=== PATIENT | female | born 1955 | race Caucasian/White ===

== ENCOUNTER 2024-12-07 15:27 | Outpatient (CLI) | payer BC, MEDICARE, SELFPAY ==
[2024-12-07 16:36] LABS: Basophils Percent Auto 0.4 % (0.2-1.2); Eosinophils Absolute Auto 0.2 K/mm3 (0-0.3); Eosinophils Percent Auto 2.4 % (0-4.4); Hematocrit 37.8 % (37.0-47.0); Hemoglobin 12.6 g/dL (12.0-15.0); Immature Granulocyte Absolute 0.04 K/mm3 (0.00-0.031); Immature Granulocyte Percent A 0.5 % (0-0.5); Lymphocytes Absolute Auto 1.47 K/mm3 (0.9-3.2); Lymphocytes Percent Auto 17.6 % (18.3-44.2); Mean Corpuscular HGB Conc 33.3 g/dl (32-36); Mean Corpuscular Hemoglobin 29.2 pg (26-34); Mean Corpuscular Volume 87.7 fl (80-100); Mean Platelet Volume 10.4 fl (7.4-10.4); Monocytes Absolute Auto 0.8 K/mm3 (0.1-0.6); Monocytes Percent Auto 9.4 % (2.6-8.5); Neutrophils Absolute Auto 5.8 K/mm3 (1.3-6.7); Neutrophils Percent Auto 69.7 % (45.5-73.1); Platelet Count Result 261 k/mm3 (150-375); Red Blood Count 4.31 M/mm3 (4.2-5.4); Red Cell Distribution Width 14.2 % (11.5-14.5); White Blood Count 8.4 K/mm3 (4.5-10.0)
--- OUTSIDE RECORDS SUMMARY | 2024-12-07 16:46 | XMS_ITS | Clinical Summary ---
Author Organization [facility] [place] [address] Care Team Providers Care Aerial Photogrammetrist Name Role Phone Mark Goel MD Primary Care Provider [phone] Chaparro Reed MD Unavailable [phone] Allergies Active Allergy Reactions Criticality Noted Date Comments Celecoxib Chest tightness Medium 10/29/2022 Medications multivitamin capsule Take 1 capsule by mouth daily Active acetaminophen (TYLENOL) 500 mg tablet Take 500 mg by mouth every 6 (six) hours as needed for pain Active omeprazole (PriLOSEC) 20 mg capsule Take 1 capsule (20 mg total) by mouth 2 (two) times a day before breakfast and dinner 60 capsule 1 2 Active atorvastatin (LIPITOR) 10 mg tablet Take 1 tablet (10 mg total) by mouth daily 4 Active methotrexate 2.5 mg tabletIndicatio ns:autoimmune disease Take 5 tablets (12.5 mg total) by mouth once a week 60 tablet 1 4 Active folic acid (FOLVITE) 1 mg tablet Take 1 tablet (1 mg total) by mouth daily 90 tablet 1 4 Active Active Problems Problem Noted Date Diagnosed Date Screening for colon cancer 08/05/2021 Assessment & Plan (08/05/2021 4:24 PM FORMING DEPARTMENT SUPERVISOR): - will discuss at next visit Gastroesophageal reflux disease 08/03/2021 Overview (08/03/2021): Added automatically from request for surgery [id number] Assessment & Plan (08/05/2021 4:23 PM FORMING DEPARTMENT SUPERVISOR): - discussed with Ms. Yang, as her symptoms are under reasonable control, we will continue pepcid at 10 mg BID, can go up to 20 mg po bid - discussed screening for Winkler's esophagus, given long standing GERD, risks of EGD were discussed with her, and she understands JAMARCUS positive 06/01/2021 Chronic rhinitis 01/30/2021 Vasculitis 01/30/2021 Status post gastrointestinal surgery 03/18/2019 History of open heart surgery 06/01/2015 Osteoporosis 10/26/2013 Overview (12/16/2019): Calcium 1200 mg, -D 2000 IU daily. Ergo monthly. HX: teriparatide 2 years DC 06/2017. HX: T11 fracture. Zoledronic acid ordered at last appointment. 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 08/05/2021 Diverticulitis 06/01/2015 08/05/2021 Surgical History Surgery Date Site/Laterality Comments HI LIG/TRNSXJ FLP TUBE ABDL/VAG APPR UNI/BI Tubal Ligation - (Added by TW Conv) HI TOTAL ABDOMINAL HYSTERECT W/WO RMVL TUBE OVARY Hysterectomy - (Added by TW Conv) TOTAL ABDOMINAL HYSTERECTOMY Total Abdominal Hysterectomy With Removal Of Both Ovaries - (Added by TW Conv) HI LAMNOTMY INCL W/DCMPRSN NRV ROOT 1 INTRSPC CERVC Hemilaminectomy With Disc Removal One Cervical Interspace - 2 disks removed (Added by TW Conv) HI THORACOPLASTY SCHEDE TYPE/EXTRAPLEURAL Thoracoplasty - left (Added by TW Conv) HI APPENDECTOMY Appendectomy - (Added by TW Conv) HYSTERECTOMY 09/01/2004 - 2005 BOWEL RESECTION 09/01/2014 - 2015 h/o diverticulitis GALLBLADDER SURGERY CARDIAC ELECTROPHYSIOLOGY MAPPING AND ABLATION 09/01/2011 - 2012 COLON SURGERY 02/17/2019 Exploratory laparotomy with lysis of adhesions. Left colectomy with redo colo anal anastomosis. Rigid proctoscopy. SINUS SURGERY Medical History Medical History Date Comments H/O: hysterectomy 2004 Hypertension Diverticulitis Bronchitis History of bronc hitis - (Added by TW Conv) GERD (gastroesophageal reflux disease) History of esophageal reflux - (Added by TW Conv) Hiatal hernia History of hiata l hernia - (Added by TW Conv) PONV (postoperative nausea and vomiting) Spontaneous pneumothorax A-fib (HCC) with cardiac abl ation Family History Medical History Relation Name Comments Colon polyps Father Broken bones Mother Colon polyps Mother Cancer Sister 1 Vesa Broken bones Sister 2 Iris Anesthesia problems Neg Hx Relation Name Status Comments Father Mother Sister 1 Vesa Alive Sister 2 Iris Alive Social History Tobacco Use Types Packs/Day Years Used Date Smoking Tobacco: Former Cigarettes Q uit: 2013 Smokeless Tobacco: Never Tobacco Cessation:Counseling Given: Not Answered Alcohol Use Standard Drinks/Week Comments Not Currently 0 (1 standard drink = 0.6 oz pur e alcohol) 1-2 AUDIT-C Answer Date Recorded Q1: How often do you have a drink containing alcohol? Never 03/25/2022 Q2: How many drinks containi ng alcohol do you have on a typical day when you are drinking? Patient does not drink Q3: How often do you have si x or more drinks on one occasion? 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 on file Not on file N ot on file Obstetrics History Para Term AB IAB SAB Ectopic Multiple Livin g Live Births 2 2 Date Outcome GA Total Labor Labor/2nd/3rd Weight Sex Type Anes PTL Carline A1 A5 Name Clin Para Para Last Filed Vital Signs Vital Sign Reading Time Taken Comments Blood Pressure 154/79 12/17/2023 9:43 AM CDT Pulse 89 12/17/2023 9:43 AM CDT Temperature 36.6 C (97.8 F) 12/17/2023 9:43 AM CDT Respiratory Rate 18 03/25/2022 9:25 AM CDT Oxygen Saturation 98% 12/17/2023 9:43 AM CDT Inhaled Oxygen Concentration - - Weight 74.8 kg (165 lb) 12/17/2023 9:43 AM CDT Height 167.6 cm (5' 6 ) 12/17/2023 9:43 AM CDT Body Mass Index 26.63 12/17/2023 9:43 AM CDT Plan of Treatment Health Maintenance Due Date Last Done Comments Breast Cancer Screening-Mammogram 1955 Depression Screening 1955 Hepatitis C Screening 1955 DTaP/Tdap/Td Vaccine (1 - Tdap) 1965 Hepatitis B Screening 1972 Pneumococcal vaccine 65+ (1 of 2 - PCV) 1973 Zoster Vaccine (1 of 2) 1973 Well Visit 65+ 2019 Fall Risk Assessment 03/25/2023 03/25/2022 Osteoporosis Screening-Bone Density Scan 07/11/2023 07/11/2021, 02/29/2020, 12/07/2018, Additional history exists Covid-19 Vaccine (2023-2 5 season) 2024 06/20/2021, 11/19/2020, 10/29/2020 Influenza Vaccine (#1) 2024 , 06/30/2020, 07/28/2019, Additional history exists Colon Cancer Screening-Colonoscopy 03/25/2032 03/25/2022, 05/12/2015 Colon Cancer Screening-CT Colonography Discontinued 03/25/2022, 05/12/2015 Colon Cancer Screening-DNA Stool Discontinued 03/25/20, 05/12/2015 Colon Cancer Screening-FIT Discontinued 03/25/2022, Colon Cancer Screening-Sigmoidoscopy Discontinued 03/25/2022, 05/12/2015 Medical Devices Implanted Type Area Security Sales Consultant Device Identifier Shelf Expiration Date Model / Serial / Lot Meagan Ortega/C R [id number] Bard [id number] Monofilament Soft Lightweight Low Profile Square - [id number] Implanted:Qty: 1 on 02/17/2019 by Charity Henry MD at [facility] Mesh Abdomen [employer]/C R [place] [id number] 09/28/2023 [id number] / / [id number] Procedures Procedure Name Priority Date/Time Associated Diagnosis Comments COLONOSCOPY 03/25/2022 8:25 AM CDT DEXA AXIAL SKELETON BONE DENSITY 1 OR MORE SITES Schedule Routine, Read Routine (OP Routine) 07/11/2021 1:23 PM FORMING DEPARTMENT SUPERVISOR Age-related osteoporosis without current pathological fracture Difficulty swallowing pills from Last 3 Months or Most Recently Relevant to Health Maintenance Results * COLONOSCOPY (03/25/2022 8:25 AM CDT) Anatomical Region Laterality Modality Other Narrative Procedure Note Fiona Sharpe MD - 03/25/2022 8:25 AM CDT [facility] Patient Name: Renetta Yang Procedure Date: 03/25/2022 8:25 AM Date of : 1955 Admit Type: Outpatient Age: 66 Gender: Female Attending MD: Fiona Sharpe M.D. Room: [facility] 3 Note Status: Finalized Procedure: Colonoscopy Indications: Screening for colorectal malignant neoplasm Referring MD: Fiona Sharpe M.D. Providers: Fiona Sharpe M.D., Holli Marshall M.D. Medicines: Monitored Anesthesia Care Complications: No immediate complications. Estimated Blood Loss: Estimated blood loss was minimal. Procedure: Pre-Anesthesia Assessment: - Prior to the procedure, a History and Physicalwas performed, and patient medications, allergies and sensitivities were reviewed. The patient'stolerance of previous anesthesia was reviewed. - Immediately prior to administration ofmedications, the patient was re-assessed for adequacy to receive sedatives. - The risks and benefits of the procedure and the sedation options and risks were discussed with the patient. All questions were answered and informed consent was obtained. The benefits, risks and alternatives of theprocedure and sedation were discussed and informed consentwas obtained. All questions were answered. Please referto the signed informed consent document in the medical record. The scope was passed under direct vision.The [id number] endoscope was introduced through the anus and advanced to the terminal ileum. The colonoscopy was performed without difficulty. The patient tolerated the procedure well. The qualityof the bowel preparation was evaluated using the BBPS ([place] Bowel Preparation Scale) with scores of:Right Colon = 2 (minor amount of residual staining, small fragments of stool and/or opaque liquid, but mucosa seen well), Transverse Colon = 3 (entire mucosaseen well with no residual staining, small fragments of stool or opaque liquid) and Left Colon = 3 (entire mucosa seen well with no residual staining, small fragments of stool or opaque liquid). The totalBBPS score equals 8. The quality of the bowelpreparation was good. The bowel preparation used was GoLYTELYvia split dose instruction. The quality of the bowel preparation was good. Findings: Hemorrhoids were found on perianal exam. The terminal ileum appeared normal. A 4 mm polyp was found in the ascending colon. The polyp was sessile. The polyp was removed with a cold snare. Resection and retrieval were complete. A single small-mouthed diverticulum was found in the right colon. Two sessile polyps were found in the recto-sigmoid colon, likely hyperplastic based on appearance. The polyps were 2 to 3 mm in size. These polyps were removed with a cold biopsy forceps. Resection and retrieval were complete. There was evidence of a prior end-to-side colo-colonic anastomosis in the recto-sigmoid colon. This was patent and was characterized by healthy appearing mucosa. The anastomosis was traversed. Internal hemorrhoids were found during retroflexion. Normal mucosa was found in the entire colon. Biopsies were taken witha cold forceps for histology from the left and right colon. Impression: - Hemorrhoids found on perianal exam. - The examined portion of the ileum was normal. - One 4 mm polyp in the ascending colon, removedwith a cold snare. Resected and retrieved. - Mild diverticulosis in the right colon. - Two 2 to 3 mm polyps at the recto-sigmoid colon, removed with a cold biopsy forceps. Resected and retrieved. - Patent end-to-side colo-colonic anastomosis, characterized by healthy appearing mucosa. - Internal hemorrhoids. - Normal mucosa in the entire examined colon.Biopsied. Recommendation: - Discharge patient to home (ambulatory). - Await pathology results. - Repeat colonoscopy in 7 years for surveillancebased on pathology results. - Return to my office as previously scheduled. Electronically signed by Fiona Sharpe MD Fiona Sharpe M.D. 03/25/2022 9:10:17 AM . Number of Addenda: 0 Note Initiated On: 03/25/2022 8:25 AM Recognized by the [place] [employer] for promoting quality in endoscopy us Fiona Sahrpe MD ENDOSCOPY PROCEDURES Final Res ult * Dexa Axial Skeleton Bone Density 1 or 2 Site (07/11/2021 1:23 PM FORMING DEPARTMENT SUPERVISOR) Anatomical Region Laterality Modality Body N/A Radiographic Brittney ging Narrative 07/11/2021 2:32 PM FORMING DEPARTMENT SUPERVISOR Patient Name: Renetta Yang Date of : 1955 Date of scan: 07/11/2021 Bone mineral density was performed on a [employer] Discovery Densitometer. Based on machine cross-calibration and precision studies the least significant changes of this densitometer is 0.024 g/cm2 at the spine, 0.020 g/cm2 at the total proximal femur, and 0.014g/cm2 at the forearm. HISTORY: This is a 65 y.o. postmenopausal female with a history of osteoporosis, rheumatoid arthritis and vitamin D deficiency. She reports that she quit smoking about 8 years ago. She has never used smokeless tobacco. She is currently on treatment with vitamin D; and was previously treated with teriparatide (Forteo), glucocorticoids and hormone replacement therapy. She has a current complaint of arm pain, back pain, neck pain and leg pain. INDICATIONS: Menopause status, vitamin D deficiency and history of osteoporosis. FINDINGS: BONE MINERAL DENSITY OF THE LUMBAR SPINE Bone Mineral Density (BMD) of the lumbar spine was measured from L1-L4 and the average density was calculated to be 0.938 gm/cm2. This corresponds to a T-score (standard deviations from the mean of young adults) of -1.0. When compared to the previous study of 02/29/2020 there has been no significant changes in bone density. BONE MINERAL DENSITY OF THE PROXIMAL FEMUR Bone Mineral Density (BMD) of the left hip total was found to be 0.971 gm/cm2. This corresponds to a T-score standard deviations from the mean of young adults of 0.2. Femoral neck is 0.737 gm/cm2 with a T-score (standard deviations from the mean of young adults) of -1.0. When compared to the previous study of 02/29/2020 there has been no significant changes in bone density. SUMMARY: Bone mineral density is near the young adult normal mean with no increased risk for fracture. There has been no significant changes in bone density since previous measurement. ADDITIONAL COMMENTS: Postmenopausal Women and Men Over 50: Diagnostic criteria: Osteoporosis: BMD at or below -2.5 T-score; Osteopenia (low bone mass): BMD between -1.0 and -2.5 T-score. If the patient has a history of a fragility fracture, a fracture that occurred with trauma equivalent to a fall from a standing position or less, then the diagnosis is osteoporosis regardless of bone density. The history and data sections of the bone mineral density scan were prepared by Teodora Hoerner, RT who is accredited by the International Society of Clinical Densitometry. The overall patient assessment and scan interpretation were performed by Michelle Cummings M.D. who is certified by the International Society of Clinical Densitometry. [id number] us Michelle Cummings MD IMG DXA PROCEDURES Final Re sult from Last 3 Months or Most Recently Relevant to Health Maintenance Insurance MEDICARE Into [facility] MEDICARE ADVANTAGE [facility] MEDICARE Address: [address] [address] [place] [address] BLUE ACCESS [facility] MEDICARE MEDICARE [facility] Address: [address] [place] [address] MEDICARE BLUE ACCESS CHOICE [place] Advance Directives For more information, please contact: [phone] * Full Code (Latest Code Status on File) Date Activated Date Inactivated Comments 08/13/2021 12:34 PM 08/13/2021 5:48 PM * Full Code Date Activated Date Inactivated Comments 02/17/2019 5:30 PM 02/21/2019 5:22 PM Care Teams Aerial Photogrammetrist Relationship Specialty Start Date End Date Mark Goel MD PCP - General Internal Medicine 12/07/18 Chaparro Reed MD Referring Physician Gastroenterology 12/31/18
--- OUTSIDE RECORDS SUMMARY | 2024-12-07 16:46 | XMS_ITS | Encounter Summary ---
Author Organization [facility] Address [address] [place] [address] Phone Care Team Providers Care Linen Room Custodian Name Role Phone Mark Goel MD Primary Care Provider [phone] Chaparro Reed MD Unavailable [phone] Encounter Details Date Type Department Care Team (Late st Contact Info) Description 05/17/2021 Orders Only [facility] Scanning, Provider Social History Tobacco Use Types Packs/Day Years Used Date Smoking Tobacco: Former Cigarettes Q uit: 2013 Smokeless Tobacco: Never Alcohol Use Standard Drinks/Week Comments Not Currently 0 (1 standard drink = 0.6 oz pur e alcohol) 1-2 Comments No Sex and Gender Information Value Date Recorded Sex Assigned at Not on file Legal Sex Female 3:17 AM DEPOT AGENT Gender Identity Female 04/16/2021 9:34 PM CDT Sexual Orientation Straight 04/16/2021 9: 34 PM CDT 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 Not on file N ot on file documented as of this encounter Plan of Treatment Not on file documented as of this encounter Procedures Procedure Name Priority Date/Time Associated Diagnosis Comments SCAN - RADIOLOGY/IMAGING 05/17/2021 documented in this encounter Results * SCAN - RADIOLOGY/IMAGING (05/17/2021) Anatomical Region Laterality Modality Other us Provider Scanning Edited Result - Final documented in this encounter Visit Diagnoses Not on filedocumented in this encounter Care Teams Linen Room Custodian Relationship Specialty Start Date End Date Mark Goel MD PCP - General Internal Medicine 12/07/18 Chaparro Reed MD Referring Physician Gastroenterology 12/31/18 documented as of this encounter
--- OUTSIDE RECORDS SUMMARY | 2024-12-07 16:46 | XMS_ITS | Data Portability ---
[facility] Organization [facility] Address [address] [place] [address] Care Team Providers Care It Account Manager Name Role Phone JULIETA GOEL Primary Care Provider Assessment Encounter Date Assessment Date Assessment LastModified by Organization Details LastModified Time 11/20/2023 11/20/2023 Blood pressure 142/88 we will continue conservative measures low-fat diet stressed [id number] omeprazole mammogram C-scope recommended recommend to stay up-to-date on immunizations but she says he is not going to get any in the next months. Follow-up with me in 6 [email or web address] Not available 11/20/2023 21:07:51 04/08/2024 04/08/2024 soft diet CBC CMP lipase Zofran Flagyl call in 3 days with update obtain ER records Not available 04/17/2024 15:33:25 05/18/2024 05/18/2024 we will continue current therapies and healthy lifestyle care instructions discussed follow up with me in 4 months. [email or web address] Not available 05/18/2024 23:06:36 09/21/2024 09/21/2024 hypertension uncontrolled add amlodipine 5 mg daily GERD conservative measures and omeprazole. Cellulitis toe doxycycline. Flu shot. Healthy lifestyle care instructions. Continue current therapy. Four month follow up. But she will come get a blood pressure checked in a week or 2 [email or web address] Not available 09/26/2024 19:51:29 Plan of Treatment Reminders Order Date Submit Date Provider Last Modified By Organization Details Last Modified Time Details Appointments ANY 15 2024 01:15P Sary Goel MD Not available Not available Not available Lab CMP, serum or plasma 2024 025 [facility], [address], [place], [address], 09/22/2024 08:24:24 CBC w/ auto diff 2024 025 [facility], [address], [place], [address], 09/22/2024 08:24:26 lipid panel, serum 2024 025 [facility], [address], [place], [address], 09/22/2024 08:24:23 CBC w/ auto diff 2023 024 [facility], [address], [place], [address], 04/09/2024 08:26:22 CMP, serum or plasma 2023 024 [facility], [address], [place], [address], 04/09/2024 08:26:21 lipase, serum or plasma [facility]23 [facility]24 [facility] [address], [place], [address], 04/09/2024 08:26:22 CMP, serum or plasma 2023 024 [facility], [address], [place], [address], 11/21/2023 07:15:54 CBC w/ auto diff 2023 024 [facility], [address], [place], [address], 11/21/2023 07:15:54 lipid panel, serum 2023 024 [facility], [address], [place], [address], 11/21/2023 07:15:53 Referral None recorded. Procedures None recorded. Surgeries None recorded. Imaging None recorded. Medication Orders doxycycli ne hyclate 100 mg capsule [address] [id number], [address], [place], [place], [id number], 09/21/2024 15:27:02 amlodipin e 5 mg tablet [address] [facility][id number], [address], [place], [place], [id number], 09/21/2024 15:27:02 atorvasta tin 10 mg tablet [address] [id number], [address], [place], [place], [id number], 09/21/2024 21:15:03 Zofran 4 mg tablet 2023 024 [id number], [address], [place], [place], [id number], 05/18/2024 15:09:44 Flagyl 500 mg tablet 2023 024 [id number], [address], [place], [place], [id number], 05/18/2024 15:10:41 Patient TargetsNo targets recorded. Patient Instructions Encounter Date Encounter Id Patient Instructions Last Modified By Organization Details Last Modified Time 05/18/2024 [id number] A healthy lifestyle: care instructions [place] [id number] Not available 05/18/2024 23:06:57 09/21/2024 [id number] A healthy lifestyle: care instructions [email or web address] Not available 09/21/2024 15:27:02 Reason for Referral None Reported. Results Created Date Observation Date Name Description Value Unit Range Abnormal Flag Note LastModifiedBy Organization Detail LastModifiedTime 11/20/19 24 11/21/2023 LIPID PANEL cholesterol, total 227 mg/dL 100-19 9 above high normal Not Available [facility] ([facility]) [address] [place], [address], 11/21/2023 07:15:53 11/20/19 24 11/21/2023 LIPID PANEL triglyceride s 314 mg/dL 0-149 above high normal Not Available [facility] ([facility]) [address] [place], [address], 11/21/2023 07:15:53 11/20/19 24 11/21/2023 LIPID PANEL HDL cholesterol 44 mg/dL >39 Not Available [facility] ([facility]) [address] [place], [address], 11/21/2023 07:15:53 11/20/19 24 11/21/2023 LIPID PANEL VLDL cholesterol chetan 56 mg/dL 5-40 above high normal Not Available [facility] ([facility]) [address] [place], [address], 11/21/2023 07:15:53 11/20/19 24 11/21/2023 LIPID PANEL LDL chol calc ([facility]) 127 mg/dL 0-99 above high normal Not Available [facility] ([facility]) [address] [place], [address], 11/21/2023 07:15:53 11/20/19 24 11/21/2023 CMP14 glucose 131 mg/dL 70-99 above high normal Not Available [facility] ([facility]) [address] [place], [address], 11/21/2023 07:15:54 11/20/19 24 11/21/2023 CMP14 BUN 11 mg/dL 8-27 Not Available [facility] ([facility]) [address] [facility], [place], [address], 11/21/2023 07:15:54 11/20/19 24 11/21/2023 CMP14 creatinine 0.81 mg/dL 0.57-1 .00 Not Available [facility] ([facility]) [address] [facility], [place], [address], 11/21/2023 07:15:54 11/20/19 24 11/21/2023 CMP14 eGFR 79 mL/mi n/1.7 3 >59 Not Available [facility] ([facility]) [address] [facility], [place], [address], 11/21/2023 07:15:54 11/20/19 24 11/21/2023 CMP14 sodium 141 mmol/ L 134-14 4 Not Available [facility] ([facility]) [address] [facility], [place], [address], 11/21/2023 07:15:54 11/20/19 24 11/21/2023 CMP14 potassium 3.7 mmol/ L 3.5-5. 2 Not Available [facility] ([facility]) [address] [facility], [place], [address], 11/21/2023 07:15:54 11/20/19 24 11/21/2023 CMP14 chloride 99 mmol/ L 96-106 Not Available [facility] ([facility]) [address] [facility], [place], [address], 11/21/2023 07:15:54 11/20/19 24 11/21/2023 CMP14 carbon dioxide, total 26 mmol/ L 20-29 Not Available [facility] ([facility]) [address] [facility], [place], [address], 11/21/2023 07:15:54 11/20/19 24 11/21/2023 CMP14 calcium 9.0 mg/dL 8.7-10 .3 Not Available [facility] ([facility]) [address] [facility], [place], [address], 11/21/2023 07:15:54 11/20/19 24 11/21/2023 CMP14 protein, total 6.6 g/dL 6.0-8. 5 Not Available [facility] ([facility]) [address] [facility], [place], [address], 11/21/2023 07:15:54 11/20/19 24 11/21/2023 CMP14 albumin 4.0 g/dL 3.9-4. 9 Not Available [facility] ([facility]) [address] [facility], [place], [address], 11/21/2023 07:15:54 11/20/19 24 11/21/2023 CMP14 globulin, total 2.6 g/dL 1.5-4. 5 Not Available [facility] ([facility]) [address] [facility], [place], [address], 11/21/2023 07:15:54 11/20/19 24 11/21/2023 CMP14 A/G ratio 1.5 1.2-2. 2 Not Available [facility] ([facility]) [address] [facility], [place], [address], 11/21/2023 07:15:54 11/20/19 24 11/21/2023 CMP14 bilirubin, total 0.3 mg/dL 0.0-1. 2 Not Available [facility] ([facility]) [address] [facility] [place], [address], 11/21/2023 07:15:54 11/20/19 24 11/21/2023 CMP14 alkaline phosphatase 114 IU/L 44-121 Not Available [facility] ([facility]) [address] [facility], [place], [address], 11/21/2023 07:15:54 11/20/19 24 11/21/2023 CMP14 AST (SGOT) 32 IU/L 0-40 Not Avail able [facility] ([facility]) [address] [place], [address], 11/21/2023 07:15:54 11/20/19 24 11/21/2023 CMP14 ALT (SGPT) 33 IU/L 0-32 above high normal Not Available [facility] ([facility]) [address] [facility], [place], [address], 11/21/2023 07:15:54 11/20/19 24 11/21/2023 CBC WITH DIFFE RENTI AL/PL ATELE T WBC 8.7 x10e3 /uL 3.4-10 .8 Not Available [facility] ([facility]) [address] [facility], [place], [address], 11/21/2023 07:15:54 11/20/19 24 11/21/2023 CBC WITH DIFFE RENTI AL/PL ATELE T RBC 4.29 x10e6 /uL 3.77-5 .28 Not Available [facility] ([facility]) [address] [place], [address], 11/21/2023 07:15:54 11/20/19 24 11/21/2023 CBC WITH DIFFE RENTI AL/PL ATELE T hemoglobin 12.5 g/dL 11.1-1 5.9 Not Available [facility] ([facility]) [address] [place], [address], 11/21/2023 07:15:54 11/20/19 24 11/21/2023 CBC WITH DIFFE RENTI AL/PL ATELE T hematocrit 37.7 % 34.0-4 6.6 Not Available [facility] ([facility]) [address] [place], [address], 11/21/2023 07:15:54 11/20/19 24 11/21/2023 CBC WITH DIFFE RENTI AL/PL ATELE T MCV 88 fL 79-97 Not Available [facility] ([facility]) [address] [place], [address], 11/21/2023 07:15:54 11/20/19 24 11/21/2023 CBC WITH DIFFE RENTI AL/PL ATELE T MCH 29.1 pg 26.6-3 3.0 Not Available [facility] ([facility]) [address] [facility], [place], [address], 11/21/2023 07:15:54 11/20/19 24 11/21/2023 CBC WITH DIFFE RENTI AL/PL ATELE T MCHC 33.2 g/dL 31.5-3 5.7 Not Available [facility] ([facility]) [address] [place], [address], 11/21/2023 07:15:54 11/20/19 24 11/21/2023 CBC WITH DIFFE RENTI AL/PL ATELE T RDW 14.6 % 11.7-1 5.4 Not Available [facility] ([facility]) [address] [place], [address], 11/21/2023 07:15:54 11/20/19 24 11/21/2023 CBC WITH DIFFE RENTI AL/PL ATELE T platelets 274 x10e3 /uL 150-45 0 Not Available [facility] ([facility]) [address] [place], [address], 11/21/2023 07:15:54 11/20/19 24 11/21/2023 CBC WITH DIFFE RENTI AL/PL ATELE T neutrophils 71 % notest ab. Not Available [facility] ([facility]) [address] [place], [address], 11/21/2023 07:15:54 11/20/19 24 11/21/2023 CBC WITH DIFFE RENTI AL/PL ATELE T lymphs 17 % notest ab. Not Available [facility] ([facility]) [address] [facility], [place], [address], 11/21/2023 07:15:54 11/20/19 24 11/21/2023 CBC WITH DIFFE RENTI AL/PL ATELE T monocytes 9 % notest ab. Not Available [facility] ([facility]) [address] [facility], [place], [address], 11/21/2023 07:15:54 11/20/19 24 11/21/2023 CBC WITH DIFFE RENTI AL/PL ATELE T eos 2 % notest ab. Not Available [facility] ([facility]) [address] [facility], [place], [address], 11/21/2023 07:15:54 11/20/19 24 11/21/2023 CBC WITH DIFFE RENTI AL/PL ATELE T basos 0 % notest ab. Not Available [facility] ([facility]) [address] [place], [address], 11/21/2023 07:15:54 11/20/19 24 11/21/2023 CBC WITH DIFFE RENTI AL/PL ATELE T neutrophils (absolute) 6.1 x10e3 /uL 1.4-7. 0 Not Available [facility] ([facility]) [address] [place], [address], 11/21/2023 07:15:54 11/20/19 24 11/21/2023 CBC WITH DIFFE RENTI AL/PL ATELE T lymphs (absolute) 1.5 x10e3 /uL 0.7-3. 1 Not Available [facility] ([facility]) [address] [place], [address], 11/21/2023 07:15:54 11/20/19 24 11/21/2023 CBC WITH DIFFE RENTI AL/PL ATELE T monocytes(ab solute) 0.8 x10e3 /uL 0.1-0. 9 Not Available [facility] ([facility]) [address] [place], [address], 11/21/2023 07:15:54 11/20/19 24 11/21/2023 CBC WITH DIFFE RENTI AL/PL ATELE T eos (absolute) 0.2 x10e3 /uL 0.0-0. 4 Not Available [facility] ([facility]) [address] [place], [address], 11/21/2023 07:15:54 11/20/19 24 11/21/2023 CBC WITH DIFFE RENTI AL/PL ATELE T baso (absolute) 0.0 x10e3 /uL 0.0-0. 2 Not Available [facility] ([facility]) [address] [facility], [place], [address], 11/21/2023 07:15:54 11/20/19 24 11/21/2023 CBC WITH DIFFE RENTI AL/PL ATELE T immature granulocytes 1 % notest ab. Not Available [facility] ([facility]) [address] [facility], [place], [address], 11/21/2023 07:15:54 11/20/19 24 11/21/2023 CBC WITH DIFFE RENTI AL/PL ATELE T immature grans (abs) 0.1 x10e3 /uL 0.0-0. 1 Not Available [facility] ([facility]) [address] [place], [address], 11/21/2023 07:15:54 12/11/19 24 12/12/2023 HEMOG LOBIN A1C hemoglobin A1C 7.2 % 4.8-5. 6 above high normal Predi abete s: 5.7 - 6.4 Diabe joana: >6.4 Glyce golden contr ol for adult s with diabe joana: <7.0 Not Available [facility] ([facility]) [address] [place], [address], 12/12/2023 03:37:09 04/08/20 24 04/09/2024 COMP. METAB OLIC PANEL (14) glucose 173 mg/dL 70-99 above high normal Not Available [facility] ([facility]) [address] [place], [address], 04/09/2024 08:26:21 04/08/20 24 04/09/2024 COMP. METAB OLIC PANEL (14) BUN 21 mg/dL 8-27 Not Available [facility] ([facility]) [address] [place], [address], 04/09/2024 08:26:21 04/08/20 24 04/09/2024 COMP. METAB OLIC PANEL (14) creatinine 0.86 mg/dL 0.57-1 .00 Not Available [facility] ([facility]) [address] [place], [address], 04/09/2024 08:26:21 04/08/20 24 04/09/2024 COMP. METAB OLIC PANEL (14) eGFR 73 mL/mi n/1.7 3 >59 Not Available [facility] ([facility]) [address] [place], [address], 04/09/2024 08:26:21 04/08/20 24 04/09/2024 COMP. METAB OLIC PANEL (14) BUN/creatini ne ratio 24 12-28 Not Available [facility] ([facility]) [address] [place], [address], 04/09/2024 08:26:21 04/08/20 24 04/09/2024 COMP. METAB OLIC PANEL (14) sodium 136 mmol/ L 134-14 4 Not Available [facility] ([facility]) [address] [place], [address], 04/09/2024 08:26:21 04/08/20 24 04/09/2024 COMP. METAB OLIC PANEL (14) potassium 3.9 mmol/ L 3.5-5. 2 Not Available [facility] ([facility]) [address] [facility] [place], [address], 04/09/2024 08:26:21 04/08/20 24 04/09/2024 COMP. METAB OLIC PANEL (14) chloride 97 mmol/ L 96-106 Not Available [facility] ([facility]) [address] [facility] [place], [address], 04/09/2024 08:26:21 04/08/20 24 04/09/2024 COMP. METAB OLIC PANEL (14) carbon dioxide, total 22 mmol/ L 20-29 Not Available [facility] ([facility]) [address] [facility] [place], [address], 04/09/2024 08:26:21 04/08/20 24 04/09/2024 COMP. METAB OLIC PANEL (14) calcium 10.2 mg/dL 8.7-10 .3 Not Available [facility] ([facility]) [address] [facility] [place], [address], 04/09/2024 08:26:21 04/08/20 24 04/09/2024 COMP. METAB OLIC PANEL (14) protein, total 6.7 g/dL 6.0-8. 5 Not Available [facility] ([facility]) [address] [facility] [place], [address], 04/09/2024 08:26:21 04/08/20 24 04/09/2024 COMP. METAB OLIC PANEL (14) albumin 4.2 g/dL 3.9-4. 9 Not Available [facility] ([facility]) [address] [facility] [place], [address], 04/09/2024 08:26:21 04/08/20 24 04/09/2024 COMP. METAB OLIC PANEL (14) globulin, total 2.5 g/dL 1.5-4. 5 Not Available [facility] ([facility]) [address] [place], [address], 04/09/2024 08:26:21 04/08/20 24 04/09/2024 COMP. METAB OLIC PANEL (14) bilirubin, total 0.4 mg/dL 0.0-1. 2 Not Available [facility] ([facility]) [address] [place], [address], 04/09/2024 08:26:21 04/08/20 24 04/09/2024 COMP. METAB OLIC PANEL (14) alkaline phosphatase 122 IU/L 44-121 above high normal Not Available [facility] ([facility]) [address] [place], [address], 04/09/2024 08:26:21 04/08/20 24 04/09/2024 COMP. METAB OLIC PANEL (14) AST (SGOT) 46 IU/L 0-40 above high normal Not Available [facility] ([facility]) [address] [place], [address], 04/09/2024 08:26:21 04/08/20 24 04/09/2024 COMP. METAB OLIC PANEL (14) ALT (SGPT) 38 IU/L 0-32 above high normal Not Available [facility] ([facility]) [address] [place], [address], 04/09/2024 08:26:21 04/08/20 24 04/09/2024 LIPAS E lipase 38 U/L 14-72 Not Available [facility] ([facility]) [address] [place], [address], 04/09/2024 08:26:22 04/08/20 24 04/09/2024 CBC WITH DIFFE RENTI AL/PL ATELE T WBC 7.4 x10e3 /uL 3.4-10 .8 Not Available [facility] ([facility]) [address] [facility] [place], [address], 04/09/2024 08:26:22 04/08/20 24 04/09/2024 CBC WITH DIFFE RENTI AL/PL ATELE T RBC 4.48 x10e6 /uL 3.77-5 .28 Not Available [facility] ([facility]) [address] [facility], [place], [address], 04/09/2024 08:26:22 04/08/20 24 04/09/2024 CBC WITH DIFFE RENTI AL/PL ATELE T hemoglobin 13.1 g/dL 11.1-1 5.9 Not Available [facility] ([facility]) [address] [place], [address], 04/09/2024 08:26:22 04/08/20 24 04/09/2024 CBC WITH DIFFE RENTI AL/PL ATELE T hematocrit 40.3 % 34.0-4 6.6 Not Available [facility] ([facility]) [address] [place], [address], 04/09/2024 08:26:22 04/08/2004/09/2024 CBC WITH DIFFE RENTI AL/PL ATELE T MCV 90 fL 79-97 Not Available [facility] ([facility]) [address] [place], [address], 04/09/2024 08:26:22 04/08/20 24 04/09/2024 CBC WITH DIFFE RENTI AL/PL ATELE T MCH 29.2 pg 26.6-3 3.0 Not Available [facility] ([facility]) [address] [place], [address], 04/09/2024 08:26:22 04/08/20 24 04/09/2024 CBC WITH DIFFE RENTI AL/PL ATELE T MCHC 32.5 g/dL 31.5-3 5.7 Not Available [facility] ([facility]) [address] [facility] [place], [address], 04/09/2024 08:26:22 04/08/20 24 04/09/2024 CBC WITH DIFFE RENTI AL/PL ATELE T RDW 14.6 % 11.7-1 5.4 Not Available [facility] ([facility]) [address] [facility], [place], [address], 04/09/2024 08:26:22 04/08/20 24 04/09/2024 CBC WITH DIFFE RENTI AL/PL ATELE T platelets 295 x10e3 /uL 150-45 0 Not Available [facility] ([facility]) [address] [facility], [place], [address], 04/09/2024 08:26:22 04/08/20 24 04/09/2024 CBC WITH DIFFE RENTI AL/PL ATELE T neutrophils 66 % notest ab. Not Available [facility] ([facility]) [address] [facility], [place], [address], 04/09/2024 08:26:22 04/08/20 24 04/09/2024 CBC WITH DIFFE RENTI AL/PL ATELE T lymphs 22 % notest ab. Not Available [facility] ([facility]) [address] [facility], [place], [address], 04/09/2024 08:26:22 04/08/20 24 04/09/2024 CBC WITH DIFFE RENTI AL/PL ATELE T monocytes 9 % notest ab. Not Available [facility] ([facility]) [address] [facility], [place], [address], 04/09/2024 08:26:22 04/08/20 24 04/09/2024 CBC WITH DIFFE RENTI AL/PL ATELE T eos 3 % notest ab. Not Available [facility] ([facility]) [address] [facility], [place], [address], 04/09/2024 08:26:22 04/08/20 24 04/09/2024 CBC WITH DIFFE RENTI AL/PL ATELE T basos 0 % notest ab. Not Available [facility] ([facility]) [address] [facility], [place], [address], 04/09/2024 08:26:22 04/08/20 24 04/09/2024 CBC WITH DIFFE RENTI AL/PL ATELE T neutrophils (absolute) 4.9 x10e3 /uL 1.4-7. 0 Not Available [facility] ([facility]) [address] [facility], [place], [address], 04/09/2024 08:26:22 04/08/20 24 04/09/2024 CBC WITH DIFFE RENTI AL/PL ATELE T lymphs (absolute) 1.6 x10e3 /uL 0.7-3. 1 Not Available [facility] ([facility]) [address] [place], [address], 04/09/2024 08:26:22 04/08/20 24 04/09/2024 CBC WITH DIFFE RENTI AL/PL ATELE T monocytes(ab solute) 0.6 x10e3 /uL 0.1-0. 9 Not Available [facility] ([facility]) [address] [place], [address], 04/09/2024 08:26:22 04/08/20 24 04/09/2024 CBC WITH DIFFE RENTI AL/PL ATELE T eos (absolute) 0.2 x10e3 /uL 0.0-0. 4 Not Available [facility] ([facility]) [address] [place], [address], 04/09/2024 08:26:22 04/08/20 24 04/09/2024 CBC WITH DIFFE RENTI AL/PL ATELE T baso (absolute) 0.0 x10e3 /uL 0.0-0. 2 Not Available [facility] ([facility]) [address] [facility] [place], [address], 04/09/2024 08:26:22 04/08/20 24 04/09/2024 CBC WITH DIFFE RENTI AL/PL ATELE T immature granulocytes 0 % notest ab. Not Available [facility] ([facility]) [address] [facility], [place], [address], 04/09/2024 08:26:22 04/08/20 24 04/09/2024 CBC WITH DIFFE RENTI AL/PL ATELE T immature grans (abs) 0.0 x10e3 /uL 0.0-0. 1 Not Available [facility] ([facility]) [address] [place], [address], 04/09/2024 08:26:22 09/21/19 25 09/22/2024 LIPID PANEL cholesterol, total 220 mg/dL 100-19 9 above high normal Not Available [facility] ([facility]) [address] [place], [address], 09/22/2024 08:24:23 09/21/19 25 09/22/2024 LIPID PANEL triglyceride s 288 mg/dL 0-149 above high normal Not Available [facility] ([facility]) [address] [place], [address], 09/22/2024 08:24:23 09/21/19 25 09/22/2024 LIPID PANEL HDL cholesterol 47 mg/dL >39 Not Available [facility] ([facility]) [address] [place], [address], 09/22/2024 08:24:23 09/21/19 25 09/22/2024 LIPID PANEL VLDL cholesterol chetan 51 mg/dL 5-40 above high normal Not Available [facility] ([facility]) [address] [place], [address], 09/22/2024 08:24:23 09/21/19 25 09/22/2024 LIPID PANEL LDL chol calc ([facility]) 122 mg/dL 0-99 above high normal Not Available [facility] ([facility]) [address] [place], [address], 09/22/2024 08:24:23 09/21/19 25 09/22/2024 COMP. METAB OLIC PANEL (14) glucose 166 mg/dL 70-99 above high normal Not Available [facility] ([facility]) [address] [place], [address], 09/22/2024 08:24:24 09/21/19 25 09/22/2024 COMP. METAB OLIC PANEL (14) BUN 12 mg/dL 8-27 Not Available [facility] ([facility]) [address] [place], [address], 09/22/2024 08:24:24 09/21/19 25 09/22/2024 COMP. METAB OLIC PANEL (14) creatinine 0.90 mg/dL 0.57-1 .00 Not Available [facility] ([facility]) [address] [place], [address], 09/22/2024 08:24:24 09/21/19 25 09/22/2024 COMP. METAB OLIC PANEL (14) eGFR 69 mL/mi n/1.7 3 >59 Not Available [facility] ([facility]) [address] [place], [address], 09/22/2024 08:24:24 09/21/19 25 09/22/2024 COMP. METAB OLIC PANEL (14) BUN/creatini ne ratio 13 12-28 Not Available [facility] ([facility]) [address] [place], [address], 09/22/2024 08:24:24 09/21/19 25 09/22/2024 COMP. METAB OLIC PANEL (14) sodium 140 mmol/ L 134-14 4 Not Available [facility] ([facility]) [address] [facility] [place], [address], 09/22/2024 08:24:24 09/21/19 25 09/22/2024 COMP. METAB OLIC PANEL (14) potassium 3.7 mmol/ L 3.5-5. 2 Not Available [facility] ([facility]) [address] [place], [address], 09/22/2024 08:24:24 09/21/19 25 09/22/2024 COMP. METAB OLIC PANEL (14) chloride 98 mmol/ L 96-106 Not Available [facility] ([facility]) [address] [place], [address], 09/22/2024 08:24:24 09/21/19 25 09/22/2024 COMP. METAB OLIC PANEL (14) carbon dioxide, total 28 mmol/ L 20-29 Not Available [facility] ([facility]) [address] [place], [address], 09/22/2024 08:24:24 09/21/19 25 09/22/2024 COMP. METAB OLIC PANEL (14) calcium 9.3 mg/dL 8.7-10 .3 Not Available [facility] ([facility]) [address] [place], [address], 09/22/2024 08:24:24 09/21/19 25 09/22/2024 COMP. METAB OLIC PANEL (14) protein, total 6.4 g/dL 6.0-8. 5 Not Available [facility] ([facility]) [address] [place], [address], 09/22/2024 08:24:24 09/21/19 25 09/22/2024 COMP. METAB OLIC PANEL (14) albumin 4.1 g/dL 3.9-4. 9 Not Available [facility] ([facility]) [address] [place], [address], 09/22/2024 08:24:24 09/21/19 25 09/22/2024 COMP. METAB OLIC PANEL (14) globulin, total 2.3 g/dL 1.5-4. 5 Not Available [facility] ([facility]) [address] [facility], [place], [address], 09/22/2024 08:24:24 09/21/19 25 09/22/2024 COMP. METAB OLIC PANEL (14) bilirubin, total 0.2 mg/dL 0.0-1. 2 Not Available [facility] ([facility]) [address] [facility], [place], [address], 09/22/2024 08:24:24 09/21/19 25 09/22/2024 COMP. METAB OLIC PANEL (14) alkaline phosphatase 104 IU/L 44-121 Not Available [facility] ([facility]) [address] [facility], [place], [address], 09/22/2024 08:24:24 09/21/19 25 09/22/2024 COMP. METAB OLIC PANEL (14) AST (SGOT) 50 IU/L 0-40 above high normal Not Available [facility] ([facility]) [address] [place], [address], 09/22/2024 08:24:24 09/21/19 25 09/22/2024 COMP. METAB OLIC PANEL (14) ALT (SGPT) 57 IU/L 0-32 above high normal Not Available [facility] ([facility]) [address] [place], [address], 09/22/2024 08:24:24 09/21/19 25 09/22/2024 CBC WITH DIFFE RENTI AL/PL ATELE T WBC 6.8 x10e3 /uL 3.4-10 .8 Not Available [facility] ([facility]) [address] [place], [address], 09/22/2024 08:24:26 09/21/19 25 09/22/2024 CBC WITH DIFFE RENTI AL/PL ATELE T RBC 4.20 x10e6 /uL 3.77-5 .28 Not Available [facility] ([facility]) [address] [facility], [place], [address], 09/22/2024 08:24:26 09/21/19 25 09/22/2024 CBC WITH DIFFE RENTI AL/PL ATELE T hemoglobin 12.3 g/dL 11.1-1 5.9 Not Available [facility] ([facility]) [address] [place], [address], 09/22/2024 08:24:26 09/21/19 25 09/22/2024 CBC WITH DIFFE RENTI AL/PL ATELE T hematocrit 38.0 % 34.0-4 6.6 Not Available [facility] ([facility]) [address] [facility], [place], [address], 09/22/2024 08:24:26 09/21/19 25 09/22/2024 CBC WITH DIFFE RENTI AL/PL ATELE T MCV 91 fL 79-97 Not Available [facility] ([facility]) [address] [place], [address], 09/22/2024 08:24:26 09/21/19 25 09/22/2024 CBC WITH DIFFE RENTI AL/PL ATELE T MCH 29.3 pg 26.6-3 3.0 Not Available [facility] ([facility]) [address] [place], [address], 09/22/2024 08:24:26 09/21/19 25 09/22/2024 CBC WITH DIFFE RENTI AL/PL ATELE T MCHC 32.4 g/dL 31.5-3 5.7 Not Available [facility] ([facility]) [address] [place], [address], 09/22/2024 08:24:26 09/21/19 25 09/22/2024 CBC WITH DIFFE RENTI AL/PL ATELE T RDW 13.7 % 11.7-1 5.4 Not Available [facility] ([facility]) [address] [facility], [place], [address], 09/22/2024 08:24:26 09/21/19 25 09/22/2024 CBC WITH DIFFE RENTI AL/PL ATELE T platelets 246 x10e3 /uL 150-45 0 Not Available [facility] ([facility]) [address] [facility], [place], [address], 09/22/2024 08:24:26 09/21/19 25 09/22/2024 CBC WITH DIFFE RENTI AL/PL ATELE T neutrophils 62 % notest ab. Not Available [facility] ([facility]) [address] [facility], [place], [address], 09/22/2024 08:24:26 09/21/19 25 09/22/2024 CBC WITH DIFFE RENTI AL/PL ATELE T lymphs 23 % notest ab. Not Available [facility] ([facility]) [address] [facility], [place], [address], 09/22/2024 08:24:26 09/21/19 25 09/22/2024 CBC WITH DIFFE RENTI AL/PL ATELE T monocytes 11 % notest ab. Not Available [facility] ([facility]) [address] [facility], [place], [address], 09/22/2024 08:24:26 09/21/19 25 09/22/2024 CBC WITH DIFFE RENTI AL/PL ATELE T eos 3 % notest ab. Not Available [facility] ([facility]) [address] [facility], [place], [address], 09/22/2024 08:24:26 09/21/19 25 09/22/2024 CBC WITH DIFFE RENTI AL/PL ATELE T basos 0 % notest ab. Not Available [facility] ([facility]) [address] [facility], [place], [address], 09/22/2024 08:24:26 09/21/19 25 09/22/2024 CBC WITH DIFFE RENTI AL/PL ATELE T neutrophils (absolute) 4.2 x10e3 /uL 1.4-7. 0 Not Available [facility] ([facility]) [address] [facility], [place], [address], 09/22/2024 08:24:26 09/21/19 25 09/22/2024 CBC WITH DIFFE RENTI AL/PL ATELE T lymphs (absolute) 1.6 x10e3 /uL 0.7-3. 1 Not Available [facility] ([facility]) [address] [facility], [place], [address], 09/22/2024 08:24:26 09/21/19 25 09/22/2024 CBC WITH DIFFE RENTI AL/PL ATELE T monocytes(ab solute) 0.7 x10e3 /uL 0.1-0. 9 Not Available [facility] ([facility]) [address] [place], [address], 09/22/2024 08:24:26 09/21/19 25 09/22/2024 CBC WITH DIFFE RENTI AL/PL ATELE T eos (absolute) 0.2 x10e3 /uL 0.0-0. 4 Not Available [facility] ([facility]) [address] [place], [address], 09/22/2024 08:24:26 09/21/19 25 09/22/2024 CBC WITH DIFFE RENTI AL/PL ATELE T baso (absolute) 0.0 x10e3 /uL 0.0-0. 2 Not Available [facility] ([facility]) [address] [place], [address], 09/22/2024 08:24:26 09/21/19 25 09/22/2024 CBC WITH DIFFE RENTI AL/PL ATELE T immature granulocytes 1 % notest ab. Not Available [facility] ([facility]) [address] [facility], [place], [address], 09/22/2024 08:24:26 09/21/19 25 09/22/2024 CBC WITH DIFFE RENTI AL/PL ATELE T immature grans (abs) 0.1 x10e3 /uL 0.0-0. 1 Not Available [facility] ([facility]) [address] [facility], [place], [address], 09/22/2024 08:24:26 10/08/19 25 10/09/2024 HEMOG LOBIN A1C hemoglobin A1C 7.4 % 4.8-5. 6 above high normal Predi abete s: 5.7 - 6.4 Diabe joana: >6.4 Glyce golden contr ol for adult s with diabe joana: <7.0 Not Available [facility] ([facility]) [address] [facility], [place], [address], 10/09/2024 06:25:05 03/21/2003/21/2024 CT, chest , w/ contr ast No observ ation record ed. [address] [place], [address], 04/02/2024 09:59:21 09/22/19 25 03/25/2022 colon oscop y proce dure (PROC ) No observ ation record ed. cyahlma Not Available 2024 17:45:09 09/24/19 25 03/25/2022 colon oscop y scree najma (PROC ) No observ ation record ed. BARCODE Not Available 2024 15:10:05 09/24/19 25 03/25/2022 upper endos copy proce dure (EGD) (PROC ) No observ ation record ed. BARCODE Not Available 2024 15:10:05 Result Notes None recorded. Problems Name Problem SNOMED Code Status Onset Date Resolution Date Notes Provider Name and Address Organization Details Recorded Time Essential hypertension 68891419 Active 2023 Geraldo Parker MA null, [place] - [facility] 4 17:05:35 Hyperlipidemia 03458177 Active 2023 Julieta Goel MD Attn: Bernice monsivais,[address] [facility], [place], [address], [facility] - [facility] 4 21:08:16 Gastroesophage al reflux disease without esophagitis 001023389 Active 2023 Julieta Goel MD Attn: Accountcathi g,[address], [place], [address], [facility] - [facility] 4 21:08:17 Abdominal pain 09058485 Active 2023 MIRLANDE Marie, [facility] 4 10:55:59 Type 2 diabetes mellitus 52105992 Active 2024 Geraldo Parker [place] null, [place] - [facility] 5 17:35:05 Problem Notes None recorded. Procedures Surgical History Date Name Laterality Status Provider Name and Address Organization Details Recorded Time 09/01/19 Total hysterectomy completed MIRLANDE Gonzalez [facility] 09/21/2024 14:57:15 Appendectomy completed MIRLANDE Negro [facility] 11/20/2023 16:17:51 Gastrointestinal Surgery completed MIRLANDE Negro [facility] 11/20/2023 16:18:06 Hernia Repair completed Roshni Azevedo MA [facility] 11/20/2023 16:18:15 Tubal Ligation completed Roshni Azevedo MA [facility] 11/20/2023 16:18:24 Neck spine disk surgery completed MIRLANDE Negro [facility] 11/20/2023 16:21:10 Imaging Results Imaging Date Name Status LastModified by [facility] Details LastModified Time 03/21/2024 CT, chest, w/ contrast completed [address], [address], 04/02/2024 09:59:21 03/25/2022 colonoscopy procedure (PROC) completed cylma Information not available 09/23/2024 17:45:09 03/25/2022 colonoscopy screening (PROC) completed BARCODE Information not available 09/24/2024 15:10:05 03/25/2022 upper endoscopy procedure (EGD) (PROC) completed BARCODE Information not available 09/24/2024 15:10:05 Procedure Notes None recorded. Medical Equipment None Reported. Allergies No known drug allergies Medications Name Sig Start Date Stop Date Status Note LastModified by Organization Details LastModified Time metformin 500 mg tablet TAKE 1 TABLET BY MOUTH EVERY DAY active Not Available Not Available No t Available prednison e 10 mg tablet GIVE 4 TABLET BY MOUTH ONCE DAILY X 7 DAYS 3 TABLET X 7 DAYS 2 TABLET X 7 DAYS 1 TABLET X 7 DAYS 1/2 TABLET X 7 DAYS 11/19 completed Not Available Not Available Not Available doxycycli ne hyclate 100 mg capsule TAKE 1 CAPSULE BY MOUTH TWICE DAILY FOR 7 DAYS active Not Available Not Available No t Available atorvasta tin 20 mg tablet Take 1 tablet every day by oral route. 2024 active Not Available Not Available Not Avai lable atorvasta tin 10 mg tablet TAKE 1 TABLET BY MOUTH EVERY DAY active Not Available Not Available No t Available ondansetr on HCl 4 mg tablet TAKE 1 TABLET BY MOUTH THREE TIMES DAILY NEEDED FOR NAUSEA 05/18 completed Not Available Not Available Not Available prednison e 5 mg tablet TAKE 4 TABLETS BY MOUTH DAILY FOR 4 DAYS 3 TABLETS DAILY FOR 4 DAYS 2 TABLETS DAILY FOR 4 DAYS 1 TABLET DAILY FOR 4 DAYS 05/18 completed Not Available Not Available Not Available metronida zole 500 mg tablet TAKE 1 TABLET BY MOUTH THREE TIMES DAILY FOR 7 DAYS 05/18 completed Not Available Not Available Not Available amlodipin e 5 mg tablet TAKE 1 TABLET BY MOUTH EVERY DAY active Not Available Not Available No t Available methotrex ate sodium 2.5 mg tablet 05/18 completed Not Available Not Available Not Available cephalexi n 500 mg capsule TAKE 1 CAPSULE BY MOUTH TWICE DAILY active Not Available Not Available No t Available folic acid 1 mg tablet 05/18 completed weakness on lower extremet ies Not Available Not Available Not Available methylpre dnisolone 4 mg tablets in a dose pack FOLLOW PACKAGE DIRECTIO NS 05/18 completed Not Available Not Available Not Available naproxen 500 mg tablet TAKE 1 TABLET BY MOUTH TWICE DAILY WITH FOOD 11/19 completed Not Available Not Available Not Available duloxetin e 30 mg capsule,d elayed release 11/19 completed Not Available Not Available Not Available omeprazol e active Not Available Not Available Not Available Vitals Date Recorded Body height Body mass index (BMI) Body weight Heart rate Oxygen saturation Oxygen saturation in Arterial blood by Pulse oximetry Systolic blood pressure Diastolic blood pressure Provider Name and Address Organization Details Last Updated DateTime 4 168.91 cm 26.8 kg/m2 25506.0 3 g 91 /min 96 % 96 % 142 mm[Hg] 88 mm[Hg] Roshni Azevedo MA [facility] 4 16:24:34 Date Recorded Body height Body mass index (BMI) Body weight Heart rate Oxygen saturation Oxygen saturation in Arterial blood by Pulse oximetry Systolic blood pressure Diastolic blood pressure Provider Name and Address Organization Details Last Updated DateTime 4 168.91 cm 25.8 kg/m2 70160.9 6 g 93 /min 99 % 99 % 134 mm[Hg] 70 mm[Hg] Dona Wade MA [facility] 4 10:09:43 Date Recorded Body height Provider Name an d Address Organization Details Last Updated DateTime 05/18/2024 168.91 cm Dona Wade MA [facility] 4 14:57:51 Date Recorded Body mass index (BMI) Body weight Heart rate Oxygen saturation Oxygen saturation in Arterial blood by Pulse oximetry Systolic blood pressure Diastolic blood pressure Provider Name and Address Organization Details Last Updated DateTime 4 26.2 kg/m2 20303.7 4 g 96 /min 96 % 96 % 132 mm[Hg] 78 mm[Hg] Olivia Persaud [place] - [facility] 4 15:08:41 Date Recorded Body height Body mass index (BMI) Body weight Heart rate Oxygen saturation Oxygen saturation in Arterial blood by Pulse oximetry Systolic blood pressure Diastolic blood pressure Provider Name and Address Organization Details Last Updated DateTime 5 168.91 cm 25.9 kg/m2 63600.2 7 g 90 /min 98 % 98 % 160 mm[Hg] 86 mm[Hg] Olivia Persaud [place] - [facility] 14:57:32 Social History Question Answer Notes LastModified by Organizat ion Details LastModified Time Tobacco Smoking Status Former Smoker 10 years ago Roshni Azevedo MA [facility], [place] - [facility] 11/20/2023 16:17:40 Do You Have An Advance Directive? No Information not available 04/08/2024 What Is Your Level Of Alcohol Consumption? None Information not available 11/20/2023 Are You Blind Or Do You Have Difficulty Seeing? Yes Reading Glasses Information not available 04/08/2024 What Is Your Level Of Caffeine Consumption? Occasional Information not available 11/20/2023 In The 14 Days Before Symptom Onset, Have You Had Close Contact With A Laboratory-confir med COVID-19 While That Case Was Ill? No Information not available 04/08/2024 In The 14 Days Before Symptom Onset, Have You Had Close Contact With A Person Who Is Under Investigation For COVID-19 While That Person Was Ill? No Information not available 04/08/2024 Have You Been To An Area Known To Be High Risk For COVID-19? No Information not available 04/08/2024 Are You Currently Employed? No Information not available 04/08/2024 Are You Deaf Or Do You Have Serious Difficulty Hearing? Yes A Little Bit Hear Lately Information not available 04/08/2024 What Type Of Diet Are You Following? REGULAR Information not available 04/08/2024 Are There Any Guns Present In Your Home? No Information not available 04/08/2024 What Was The Date Of Your Most Recent Tobacco Screening? 09/21/2024 Information not available 09/21/2024 What Is Your Relationship Status? Information not available 04/08/2024 Do You Use Your Seat Belt Or Car Seat Routinely? Yes Information not available 04/08/2024 Do You Have Smoke And Carbon Monoxide Detectors In Your Home? Yes Information not available 04/08/2024 Do You Use Any Illicit Or Recreational Drugs? No Information not available 11/20/2023 Do You Use Sunscreen Routinely? Yes Information not available 04/08/2024 Has Tobacco Cessation Counseling Been Provided? Yes Information not available 09/21/2024 On What Date Was Tobacco Cessation Counseling Provided? 09/21/2024 Information not available 09/21/2024 Do You Or Have You Ever Used Any Other Forms Of Tobacco Or Nicotine? No Information not available 11/20/2023 Sex: Female Functional Status Question Answer Note LastModified by Organization D etails LastModified Time Are you able to care for yourself? Yes Information n ot available 04/08/2024 What is your exercise level? None Information not available 04/08/2024 Mental Status None recorded. Family History Relationship Description Onset Age of this Age Resolved Age Notes LastModified by Organization Details LastModified Time Sister Alcohol abuse [email or web address] Not available 2023 16:18:52 Sister Malignant tumor of breast [email or web address] Not available 2023 16:19:15 Sister Diabetes mellitus [email or web address] Not available 2023 16:19:30 Sister Hypertensive disorder [email or web address] Not available 2023 16:19:46 Sister Hypercholest erolemia [email or web address] Not available 2023 16:19:58 Brother Asthma [email or web address] Not available 11/20/2023 16:19:03 Father Diabetes mellitus [email or web address] Not available 2023 16:19:30 Father Hypertensive disorder [email or web address] Not available 2023 16:19:46 Father Hypercholest erolemia dmilesma Not available 2023 16:19:57 Medical History Condition Response Coronary Artery Disease N Other N Atrial Fibrillation N High Blood Pressure Y Depression N COPD N Blood Clots N Anxiety Disorder N Muscle, Joint, or Bone Problems Y Acid Reflux (GERD) Y Cancer N Stroke N High Cholesterol Y Liver Disease N Headaches N Kidney or Bladder Problems N Thyroid Problems N GI Problems Y Skin Problems N Anemia N Heart Attack ([place]) N Diabetes N Seizures/Epilepsy N Asthma N Allergies N Hepatitis N Heart Failure N Osteoporosis Y Gynecological HistoryNo gynecological history recorded. Obstetrics History GPAL:G 0 P 0 0 0 0 Immunizations Vaccine Type Date Status Note Provider Nam e and Address Organization Details Recorded Time Influenza, split virus, quadrivalent, preservative 9 completed Jennifer Linton MA null, [place] - [facility] 11/12/2024 13:11:49 Influenza, MDCK, quadrivalent, PF 9 completed Jennifer Linton [place], [place] [facility] 11/12/2024 13:11:49 Influenza, high-dose, quadrivalent, PF 3 completed Jennifer Linton [place] [facility] 11/12/2024 13:11:49 Influenza, high-dose, quadrivalent, PF 0 completed Jennifer Linton [place] [facility] 11/12/2024 13:11:49 Influenza, high-dose, quadrivalent, PF 2 completed Jennifer L[place] [facility] 11/12/2024 13:11:49 Influenza, adjuvanted, quadrivalent, PF 1 completed Jennifer L[place] [facility] 11/12/2024 13:11:49 COVID-19, mRNA, LNP-S, PF, 30 mcg/0.3 mL dose 1 completed Jennifer Linton [place], [place] [facility] 11/12/2024 13:11:49 COVID-19, mRNA, LNP-S, PF, 30 mcg/0.3 mL dose 1 completed Jennifer L[place] [facility] 11/12/2024 13:11:49 COVID-19, mRNA, LNP-S, PF, 30 mcg/0.3 mL dose 1 completed Jennifer L[place] [facility] 11/12/2024 13:11:49 COVID-19, mRNA, LNP-S, bivalent, PF, 30 mcg/0.3 mL dose 2 completed Jennifer L[place] [facility] 11/12/2024 13:11:49 COVID-19, mRNA, LNP-S, PF, rosa-sucrose, 30 mcg/0.3 mL 3 completed Jennifer Linton [place], [place] [facility] 11/12/2024 13:11:49 Influenza, split virus, trivalent, preservative 3 completed MIRLANDE Garcias, [place] - [facility] 11/12/2024 13:11:49 Influenza, high-dose, trivalent, PF 5 completed Julieta Goel MD Attn: Accounting,[address] [facility], [place], [address], [facility] - [facility] 09/26/2024 19:49:45 Past Encounters Encounter ID Performer Location Encounter Start Date Encounter Closed Date Diagnosis/Indication Diagnosis SNOMED-CT Code Diagnosis ICD10 Code Diagnosis Note [id number] Julieta Goel MD [facility] (Adult Med) [address] [place] [phone] 11/20/2023 15:18:05 11/20/2023 17:06:20 Essential hypertension 41459783 I10 Hyperlipidemia 84593107 E78.5 Gastroesop hageal reflux disease without esophagitis 187194056 K21.9 [id number] Julieta Goel MD [facility] [address] [place] [address] 04/08/2024 09:47:31 04/08/2024 10:54:28 Abdominal pain 77907372 R10.9 [id number] [facility] [address] [place] [id number] 05/18/2024 14:53:17 05/18/2024 16:08:17 Overweight 783310317 E66.3 Essential hypertension 03986836 I10 Hyperlipidemia 22572565 E78.5 Gastroesop hageal reflux disease without esophagitis 328238676 K21.9 [id number] MD Clarissa Lal (Adult Med) [address] [place] [id number] 09/21/2024 14:47:08 09/21/2024 15:27:40 Body mass index 25-29 - overweight 598625335 Z68.25 Overweight 980452055 E66 .3 Essential hypertension 67759700 I10 Pain in right foot 02671 70246 31332 M79.671 Administra tion of influenza vaccine 92389446 Z23 Hyperlipidemia 82894239 E78.5 Colonoscopy declined 326 1584683 01613 Z53.20 Gastroesop hageal reflux disease without esophagitis 540183321 K21.9 Health Concerns Section Related Observation LastModified by Organization Detai ls LastModified Time None Recorded Concern Status LastModified by Organization Details LastModified Time None Recorded Advance Directives Directive N: Payers Encounter Date Sequence Insurance Name Policy Number Policy Huitron Covered Member ID Huitron Member ID Guarantor Name 11/20/2023 2 [place] Renetta L Celia [id number] Renetta L Celia 11/20/2023 1 [place] [id number] Brian E Celia [id number] Renetta L Celia 04/08/2024 2 [place] Renetta L Celia [id number] Renetta L Celia 04/08/2024 1 [place] [id number] Brian E Celia [id number] Renetta L Celia 05/18/2024 2 [place] Renetta L Celia [id number] Renetta L Celia 05/18/2024 1 [place] [id number] Brian E Celia [id number] Renetta L Celia 09/21/2024 2 [place] Renetta L Celia [id number] Renetta L Celia 09/21/2024 1 [place] [id number] Brian E Celia [id number] Renetta L Celia Notes Date Note Type Note Provider Name and Address Organization Details Recorded Time 11/20/2023 text/html Stress of yolanda monsivais with her ailing mother hypertension conservative measures she was going to continue hyperlipidemia try to follow low-fat diet GERD has been doing fine Julieta Goel MD Attn: Accounting,[address] [facility], [place], [address], [place] 11/20/2023 21:08:37 04/08/2024 text/html abdominal pain a nd nausea went to the emergency room with workup was unrevealing except for possibly some enterocolitis seen on CT scan she still has her symptoms was not really discharged on anything Julieta Goel MD Attn: Accounting,[address] [facility], [place], [address], [facility] - [facility] 04/17/2024 15:33:41 05/18/2024 text/html finally her abdominal discomfort that is all GERD or nausea and vomiting hyperlipidemia she is trying to take a good stance on healthy diet hypertension no headache no dizziness Julieta Goel MD Attn: Accounting, [address] [facility], [place], [address], [facility] 05/18/2024 23:06:59 09/21/2024 text/html hypertension not controlled dyslipidemia taking atorvastatin needs a refill GERD controlled on omeprazole 3rd toe right foot redness at the nailbed for a few days Julieat Goel MD Attn: Accounting,[address] [facility], [place], [address], [facility] 09/26/2024 19:52:16 OBGyn Episode No OBEpisode recorded.
--- OUTSIDE RECORDS SUMMARY | 2024-12-07 16:46 | XMS_ITS | Referral Summary ---
Author Organization [facility] Address [address] [place] [address] Care Team Providers Care Car Spotter Name Role Phone Mark Goel MD Primary Care Provider [phone] Chaparro Reed MD Unavailable [phone] Allergies Active Allergy Reactions Criticality Noted Date [...] 08/05/2021 Assessment & Plan (08/05/2021 4:24 PM SOCIAL SERVICES ASSISTANT): - will discuss at next visit Gastroesophageal reflux disease 08/03/2021 Overview (08/03/2021): Added automatically from request for surgery [id number] Assessment & Plan (08/05/2021 4:23 PM SOCIAL SERVICES ASSISTANT): - discussed with Ms. 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 Not on file Not on file N ot on file Last Filed Vital Signs Vital Sign Reading [...] 12/17/2023 9:43 AM CDT Plan of Treatment Not on file Medical Devices Implanted Type Area Contact Lens Inspector Device Identifier Shelf Expiration Date Model / Serial / Lot [employer]/C R Bard [id number] Monofilament Soft Lightweight Low Profile Square - [id number] Implanted:Qty: 1 on 02/17/2019 by Charity Henry MD at [facility] Mesh Abdomen [employer] [id number] 09/28/2023 [id number] / / [id number] Procedures Procedure Name Priority Date/Time Associated Diagnosis Comments COLONOSCOPY 03/25/2022 8:25 AM CDT DEXA AXIAL SKELETON BONE DENSITY 1 OR MORE SITES Schedule Routine, Read Routine (OP Routine) 07/11/2021 1:23 PM SOCIAL SERVICES ASSISTANT Age-related osteoporosis without current pathological fracture Difficulty [...] Female Attending MD: Fiona Sharpe M.D. Room: [facility] ENDOSCOPY ROOM 3 Note Status: Finalized Procedure: [...] The scope was passed under direct vision.The [id number] endoscope was introduced through the anus and advanced to the terminal ileum. The colonoscopy was performed without difficulty. The patient tolerated the procedure well. The qualityof the bowel preparation was evaluated using the BBPS ([place] Bowel Preparation Scale) with scores of:Right Colon [...] On: 03/25/2022 8:25 AM Recognized by the [place] [employer] for promoting quality in endoscopy us Fiona Sharpe MD ENDOSCOPY PROCEDURES Final Res ult * Dexa Axial Skeleton Bone Density 1 or 2 Site (07/11/2021 1:23 PM SOCIAL SERVICES ASSISTANT) Anatomical Region Laterality Modality Body N/A Radiographic Rbittney ging Narrative 07/11/2021 2:32 PM SOCIAL SERVICES ASSISTANT Patient Name: Renetta Yang Date of : 1955 Date of scan: 07/11/2021 Bone mineral density was performed on a [employer] Discovery Densitometer. Based on machine cross-calibration and [...] bone mineral density scan were prepared by RT Sara who is accredited by the International Society of Clinical Densitometry. The overall patient assessment and scan interpretation were performed by Michelle Cummings M.D. who is certified by the International Society of Clinical Densitometry. [id number] Michelle Cummings MD IMG DXA PROCEDURES Final Re sult from Last 3 Months or Most Recently Relevant to Health Maintenance Insurance [place] [facility] ACCESS MEDICARE BLUE ACCESS [facility] Advance Directives For more information, please contact: [phone] * Full Code (Latest Code Status on File) Date Activated Date Inactivated Comments 08/13/2021 12:34 PM 08/13/2021 5:48 PM * Full Code Date Activated Date Inactivated Comments 02/17/2019 5:30 PM 02/21/2019 5:22 PM Care Teams Car Spotter Relationship Specialty Start Date End Date Mark Goel MD PCP - General Internal Medicine 12/07/18 Chaparro Reed MD Referring Physician Gastroenterology 12/31/18
--- OUTSIDE RECORDS SUMMARY | 2024-12-07 16:46 | XMS_ITS | Continuity of Care Document ---
Author Organization [facility] Address [address] [place] [address] [place] [address] Phone Care Team Providers Care Blasting Contract Man Name Role Phone Radhames Schwarz MD Unavailable Unavailable Advance Directives Directive Yes / No Effective Date File Name No Information Encounters Encounter Description Practice Location Reason(s) For Visit Diagnoses Date Provider Providers Copied on Encounter [facility], [address] [place], [place], [id number], [place] tel:[phone] [facility] No Information [address]. [address] [facility] [address], [place], [place], [id number], [place]. tel:[phone] Family History Family Member Type Diagnosis Age At Onset No Information Payers Payer name Insurance type Covered libertarian ID Authoriza tion(s) No Information Social History Type Description Quantity Date Captured Comments Sex Female Smoking Status No Information Chief Complaint And Reason For Visit No Information Reason For Referral Reason For Referral No Information History Of Present Illness Encounter Date Complaint History Of Prese nt Illness No Information Functional Status Date Functional Assessmen t No Information Instructions Date Instruction Additional Infor mation No Information Assessments Type Assessment Date No Information Patient Care Teams Name Effective Dates (start - stop) Status Members No Information
--- OUTSIDE RECORDS SUMMARY | 2024-12-07 16:46 | XMS_ITS | CONTINUITY OF CARE DOCUMENT ---
Author Name isaac gray Address Unknown Organization [facility] Address [address] [place] [address] Phone [phone] Care Team Providers Care Medical Device Sales Consultant Name Role Phone Ramirez ESPOSITO, Herson Unavailable [phone] FELICIANO PUENTES MD Unavailable Unavailabl e ELLIOTT TALENT REP, SAUNDRA Unavailable [phone] PROBLEMS Condition Status Date Provider Notes HTN ESSENTIAL-10/14 ECHO EF 6 5 SLIGHT STINSON DYS active ? Jacob Cash RN CHEST PAIN-10/14 NUC NEG active ? Herson Guzmán MD TOBACCO ABUSE--Quit 2012 active Herson kincaid MD PALPITATIONS active ? Herson Guzmán MD ATRIAL FIB, PAROXYSMAL s/p a blation 07/2013 active Herson Guzmán MD SHORTNESS OF BREATH active Beto leo MD ENCOUNTERS Date Type Provider Location Encounter Diagnosis - In-person encounter Office Visit Herson Guzmán MD [facility] - In-person encounter Office Visit Herson Guzmán MD [facility] TOBACCO ABUSE--Quit 2013ATRIAL FIB, PAROXYSMAL s/p ablation 07/2013 - In-person encounter Office Visit Herson Guzmán MD [facility] - In-person encounter Office Visit Herson Guzmán MD [facility] - In-person encounter Office Visit Beto Hutchinson MD [facility] - In-person encounter Office Visit Beto Hutchinson MD [facility] - In-person encounter Office Visit Beto Hutchinson MD [facility] SHORTNESS OF BREATH - In-person encounter Office Visit Herson Guzmán MD [facility] - In-person encounter Office Visit Herson Guzmán MD [facility] Office ATRIAL FIB, PAROXYSMAL s/p ablation 07/2013 - In-person encounter Office Visit Herson Guzmán MD [facility] HTN ESSENTIAL-10/14 ECHO EF 65 SLIGHT STINSON DYSCHEST PAIN-10/14 NUC NEGTOBACCO ABUSE--Quit 2012PALPITATIONS VITAL SIGNS Date Observation Value Provider blood pressure, diastolic 79 mm[Hg] Nd farhad Henson blood pressure, systolic 141 mm[Hg] [facility] 96 /min Kiarra Henson oxygen saturation, oximetry 97 % Kiarra Henson respiratory rate E&M 15 /min Kiarra Henson Body Mass Index (Ratio) 26.78 kg/m2 [facility] weight E&M 171 [lb_av] Kiarra Henson blood pressure, diastolic 72 mm[Hg] Us cee Guzmán MD blood pressure, systolic 130 mm[Hg] m john Guzmán MD Body Mass Index (Ratio) 2.51 kg/m2 [facility] pulse rate 88 /min Kiarra Henson oxygen saturation, oximetry 98 % Kiarra Henson respiratory rate E&M 15 /min Kiarra Henson weight E&M 16 [lb_av] Kiarra Henson Body Mass Index (Ratio) 26.94 kg/m2 Gita Campbell blood pressure, diastolic 70 mm[Hg] Ke susan Campbell blood pressure, systolic 120 mm[Hg] Ker ri Gruenenfelder pulse rate 86 /min Jenny Gruenezeinabe lder oxygen saturation, oximetry 98 % Jenny Gruenenfelder respiratory rate E&M 16 /min Jenny G jeronimoenenfmay weight E&M 172 [lb_av] Jenny Gruenenfe lder Body Mass Index (Ratio) 26.62 kg/m2 Trang ssa Henson blood pressure, diastolic 75 mm[Hg] Nd farhad Henson blood pressure, systolic 141 mm[Hg] Linda chicasa Henson pulse rate 100 /min Kiarra [facility] oxygen saturation, oximetry 98 % Kiarra Henson respiratory rate E&M 14 /min Kiarra [facility] weight E&M 170 [lb_av] Kiarra Henson Body Mass Index (Ratio) 27.83 kg/m2 Adam thalia Green blood pressure, diastolic 80 mm[Hg] De nyeajohn Green blood pressure, systolic 144 mm[Hg] Den armani Green pulse rate 16 /min Srakisyejohn Green oxygen saturation, oximetry 97 % Issa Green respiratory rate E&M 16 /min Issa Green weight E&M 177.06 [lb_av] Issa Maurerr an Body Mass Index (Ratio) 26.09 kg/m2 Pelayo i Blaynenekatharine blood pressure, diastolic 86 mm[Hg] Ke rri Maluenekatharine blood pressure, systolic 134 mm[Hg] Ker ri Maluenenfelder pulse rate 96 /min Jenny Vadime lder oxygen saturation, oximetry 98 % Jenny Adrian respiratory rate E&M 15 /min Jenny G frantzkatharine weight E&M 166 [lb_av] Jenny Gasca er Body Mass Index (Ratio) 26.09 kg/m2 Gita warner Adrian blood pressure, diastolic 74 mm[Hg] Imtiaz Fierromay blood pressure, systolic 134 mm[Hg] Krysten Resendezcatherine pulse rate 99 /min Jenny Gasca lder oxygen saturation, oximetry 98 % Jenny Resendezcatherine respiratory rate E&M 15 /min Jenny Higgins jeronimocomfortmay weight E&M 166 [lb_av] Jenny Vadimrosas lder blood pressure, diastolic 78 mm[Hg] Delbert Cash RN blood pressure, systolic 130 mm[Hg] Jacob Cash RN pulse rate 86 /min Jacob Cash RN oxygen saturation, oximetry 97 % Jacob Cash RN respiratory rate E&M 16 /min Jacob brooks RN Body Mass Index (Ratio) 25.15 kg/m2 Jacob Cash RN weight E&M 160 [lb_av] Jacob Cash RN blood pressure, diastolic 71 mm[Hg] Nuria Cantrell blood pressure, systolic 112 mm[Hg] Sofy Cantrell pulse rate 95 /min Gilda Cantrell oxygen saturation, oximetry 97 % Gilda Cantrell respiratory rate E&M 16 /min Gilda Cantrell weight E&M 155 [lb_av] Gilda Cantrell blood pressure, diastolic 60 mm[Hg] Delbert Cash RN blood pressure, systolic 112 mm[Hg] Jacob Cash RN pulse rate 94 /min Jacob Cash RN oxygen saturation, oximetry 99 % Jacob Cash RN respiratory rate E&M 16 /min Jacob brooks RN weight E&M 154 [lb_av] Jacob Cash RN height E&M 67 [in_i] Jacob Cash RN ALLERGIES Allergy Name Onset Date Reaction Criticality Status ANTIFLAMMATORY Low Criticality activ e RESULTS Date Observation Value Provider Reference Range Interpretation Location coagulation managed by Jacob Cash RN prothrombin time (patient) 20.3 s Issa Green international normalized ratio (INR) 2.0 Issa Green Normal coagulation managed by Jacob Cash RN prothrombin time (patient) 26.3 s Adri Stphyllisber international normalized ratio (INR) 2.6 Adri Lemus Normal coagulation managed by Jacob Cash RN prothrombin time (patient) 31.4 s Jacob Cash RN international normalized ratio (INR) 3.1 Jacob Cash RN Normal coagulation managed by Jacob Cash RN prothrombin time (patient) 15.8 s Jacob Cash RN international normalized ratio (INR) 1.6 Jacob Cash RN Normal coagulation managed by Jacob Cash RN prothrombin time (patient) 12.0 s Jacob Cash RN international normalized ratio (INR) 1.2 Jacob Cash RN Normal platelet count 390 10*3/mm3 Charito Knott hematocrit, blood 36.4 % Charito Knott international normalized ratio (INR) 1.6 [place] Knott creatinine, serum 0.8 mg/dL Sarkisetrist Nikos potassium, serum 4.2 mmol/L S[place]rm[place]ana Knott sodium, serum 139 mmol/L S[place]rm[place]ana Knott coagulation managed by Jacob Cash RN prothrombin time (patient) 10.1 s Jacob Cash RN international normalized ratio (INR) 1.0 Jacob Cash RN Normal coagulation managed by Jacob Cash RN prothrombin time (patient) 11.9 s Jacob Cash RN international normalized ratio (INR) 1.2 Jacob Cash RN Normal PTT patient 26.8 s Marisol Zhang RN prothrombin time (patient) 10.3 s Marisol Zhang RN international normalized ratio (INR) 1.0 [facility] blood glucose, fasting 99 mg/dL [facility] creatinine, serum 0.90 mg/dL [facility] urea nitrogen, blood 21 mg/dL [facility] carbon dioxide, serum, total 31 mmol/L [facility] chloride, serum 102 mmol/L [facility] potassium, serum 4.2 mmol/L [facility] sodium, serum 143 mmol/L [facility] platelet count 375 10*3/uL [facility] hematocrit, blood 36.8 % [facility] hemoglobin, blood 11.9 g/dL [facility] erythrocyte (RBC) count 4.08 10*6/mm3 [facility] leukocyte count, blood 8.2 10*3/mm3 [facility] international normalized ratio (INR) 0.9 Charito Knott platelet count 335 10*3/mm3 Charito Knott hematocrit, blood 35.6 % Charito Knott creatinine, serum 0.82 mg/dL Charito Knott potassium, serum 4.1 mmol/L Charito Knott sodium, serum 144 mmol/L Charito Knott platelet count 338 10*3/mm3 Charito Knott hematocrit, blood 35.6 % Charito Knott international normalized ratio (INR) 0.9 Charito Knott creatinine, serum 0.82 mg/dL Charito Knott potassium, serum 4.1 mmol/L Charito Knott sodium, serum 144 mmol/L Charito Knott HISTORY OF MEDICATION USE Medication Status Instructions Dates Provider Indications Com ments FORTEO SOLUTION active once daily Kiarra Henson MULTIVITAMINS ORAL CAPSULE completed ONE TAB. DAILY - Kiarra Henson OSCAL 500/200 D-3 TABLET completed once daily - Kiarra Henson PAMELOR 50 MG ORAL CAPSULE active take one pill at bedtime Herson Guzmán MD VITAMIN D (ERGOCALCIFEROL ) 07976 UNIT ORAL CAPSULE completed take one pill a month - Kiarra Henson NORTRIPTYLINE HCL 50 MG ORAL CAPSULE completed 1 tab po qhs - Jenny Campbell ASPIRIN 325 MG ORAL TABLET active ONE TAB. DAILY Beto Hutchinson MD ATRIAL FIB, PAROXYSMAL s/p ablation 07/2013 stop coumadin RYTHMOL SR 325 MG ORAL CAPSULE EXTENDED RELEASE 12 HOUR completed one tablet a day - Kiarra Henson ATRIAL FIB, PAROXYSMAL s/p ablation 07/2013 stop amiodarone POTASSIUM CHLORIDE 20 MEQ ORAL PACKET completed take one pill a day - Beto Hutchinson MD PANTOPRAZOLE SODIUM 40 MG ORAL TABLET DELAYED RELEASE active take one pill every 12 hours Jenny Campbell OXYCODONE-ACETA MINOPHEN 5-325 MG ORAL TABLET completed take one pill every 4 hours - Kiarra Henson MAGNESIUM OXIDE 400 MG ORAL TABLET completed take two pills a day - Jenny Campbell FUROSEMIDE 20 MG ORAL TABLET completed take one pill a day - Beto Hutchinson MD COUMADIN 5 MG ORAL TABLET completed 1 1/2 tabs daily EXCEPT on Wed and Fri take 1 tab - Beto Hutchinson MD B COMPLEX ORAL CAPSULE completed take one pill a day - Kiarra Henson ALEVE 220 MG ORAL TABLET completed take 2 pills a day as needed - Jenny Campbell RYTHMOL SR 325 MG ORAL CAPSULE EXTENDED RELEASE 12 HOUR completed 1 tab po bid - Jenny Campbell FLECAINIDE ACETATE 100 MG ORAL TABLET completed 1 tab po bid - Jacob Cash RN VITAMIN E 400 UNIT ORAL CAPSULE completed ONE TAB. DAILY - Kiarra Henson B-12 100 MCG ORAL TABLET completed daily - Jenny Campbell NORTRIPTYLINE HCL 50 MG ORAL CAPSULE completed at hs - Kiarra Henson COREG 12.5 MG ORAL TABLET active ONE TAB. TWICE DAILY Herson Guzmán MD SINGULAIR 10 MG ORAL TABLET completed daily - Kiarra Henson ELMIRON 100 MG ORAL CAPSULE active take 1 hr before meals or two hours post meals twice daily Jacob Cash RN CARDIZEM CD 180 MG ORAL CAPSULE EXTENDED RELEASE 24 HOUR completed one daily - Jenny Campbell ZOFRAN 4 MG ORAL TABLET completed every 8 hrs as needed for n-v - Gilda Óscar ACETAMINOPHEN 325 MG ORAL TABLET completed as needed - Jacob Cash RN ASPIRIN 325 MG ORAL TABLET completed ONE TAB. DAILY - Jenny Campbell PEPCID AC 10 MG ORAL TABLET completed twice daily - Jenny Campbell SOCIAL HISTORY Date Observation Value Provider social history E&M Marital Statu s: L gavin with family/friends E thnicity: Smoking History: Clara figueroa is a former smoker. Herson Guzmán MD social history reviewed E&M revi ewed - no changes required Herson Guzmán MD alcohol counseling no Kiarra Lambert In the past 3 months , have you been waking up wanting to use drugs? (CAGE substance use question #4) N Kiarra Henson In the past 3 months , have you felt guilty or bad about using drugs? (CAGE substance use question #3) N Kiarra Henson In the past 3 months , has anyone annoyed you by telling you to cut down or stop using drugs? (CAGE substance use question #2) N Kiarra Henson In the past 3 months , have you felt you should cut down or stop using drugs?(CAGE substance use question #1) N Kiarra Henson alcohol use, average drinks per day social Kiarra Henson alcohol use no Kiarra Henson caffeine use, averag e drinks per day yes Kiarra Henson drug use no Kiarra Henson passive cigarette sm tej exposure yes Kiarra Henson smoking, year quit 2012 Kiarra Kincaid cCauriel number of years as a smoker 44 a Kiarra Henson smoking, date started 1969 Susan zapata Henson smoking history, tot al pack/year 43 Kiarra Henson smoking history, tot al pack/day 1.5 Kiarra Henson cigarette use yes Kiarra Henson smoking status Former smoker Kiarra Frye uriel social history reviewed E&M revi ewed - no changes required Herson Guzmán MD alcohol counseling no Kiarra Kincaid [facility] In the past 3 months , have you been waking up wanting to use drugs? (CAGE substance use question #4) N Kiarra Henson In the past 3 months , have you felt guilty or bad about using drugs? (CAGE substance use question #3) N Kiarra Henson In the past 3 months , has anyone annoyed you by telling you to cut down or stop using drugs? (CAGE substance use question #2) N Kiarra Henson In the past 3 months , have you felt you should cut down or stop using drugs?(CAGE substance use question #1) N Kiarra Henson alcohol use, average drinks per day social Kiarra Henson alcohol use no Kiarra Henson caffeine use, averag e drinks per day yes Kiarra Henson drug use no Kiarra Henson passive cigarette sm tej exposure yes Kiarra Henson smoking/tobacco cess ation, patient education and counseling yes Kiarra Henson smoking, year quit 2012 Kiarra Kincaid Petra number of years as a smoker 44 a Kiarra Henson smoking, date started 1970 Susan Henson smoking history, tot al pack/year 43 Kiarra Henson smoking history, tot al pack/day 1.5 Kiarra Henson cigarette use yes Kiarra Henson smoking status Former smoker Kiarra Frye uriel social history E&M Marital Statu s: L gavin with family/friends E thnicity: Clara figueroa is a former smoker. Smoking History: Clara figueroa is a former smoker. Herson Guzmán MD alcohol use no Jenny Campos velasco number of years as a smoker 44 a Jenny Adrian smoking history, tot al pack/day 1.5 Jenny Campbell cigarette use yes Jenny Vadim olvera smoking status Former smoker Jenny Resendezterrance alcantar social history E&M Marital Statu s: L gavin with family/friends E thnicity: Clara figueroa is a former smoker. Smoking History: Clara figueroa is a former smoker. Clara figueroa has been counseled to quit. Herson Guzmán MD alcohol counseling no Kiarrafang Lambert In the past 3 months , have you been waking up wanting to use drugs? (CAGE substance use question #4) N Kiarra Henson In the past 3 months , have you felt guilty or bad about using drugs? (CAGE substance use question #3) N Kiarra Henson In the past 3 months , has anyone annoyed you by telling you to cut down or stop using drugs? (CAGE substance use question #2) N Kiarra Henson In the past 3 months , have you felt you should cut down or stop using drugs?(CAGE substance use question #1) N Kiarra Henson alcohol use, average drinks per day social Kiarra Henson caffeine use, averag e drinks per day yes Kiarra Henson drug use no Kiarra Henson passive cigarette sm tej exposure yes Kiarra Henson smoking/tobacco cess ation, patient education and counseling yes Kiarra Henson smoking, year quit 2012 Kiarra Kincaid [facility] smoking, date started 1970 Susan zapata Henson smoking history, tot al pack/year 43 Kiarra Henson smoking history, tot al pack/day 1/ Kiarra Henson cigarette use yes Kiarra Henson smoking status Former smoker Herson Guzmán MD social history reviewed E&M reviewed Jacob Cash RN alcohol counseling no Issa kemp In the past 3 months , have you been waking up wanting to use drugs? (CAGE substance use question #4) John Green In the past 3 months , have you felt guilty or bad about using drugs? (CAGE substance use question #3) John Green In the past 3 months , has anyone annoyed you by telling you to cut down or stop using drugs? (CAGE substance use question #2) John Green In the past 3 months , have you felt you should cut down or stop using drugs?(CAGE substance use question #1) Jonh Green drug use no Issa Green smoking history, tot al pack/year 43 Beto Hutchinson MD social history reviewed E&M reviewed Beto Hutchinson MD smoking history, tot al pack/year 43 Jenny Campbell drug use none Beto amato MD social history reviewed E&M reviewed Beto Hutchinson MD smoking, year quit 2012 Jenny Resendezkatarina thakkar smoking status former smoker Jenny Castellanos katharine smoking history, tot al pack/year 43 Jenny Cisnerosana m smoking status former smoker Jacob Shailesh Bhandari quit smoking, stage quit Jacob clay RN social history reviewed E&M reviewed Jacob Cash RN smoking history, tot al pack/year 43 Jacob Cash RN smoking history, tot al pack/year 43 Jacob Cash RN social history reviewed E&M reviewed Herson Guzmán MD smoking history, tot al pack/year 43 Gilda Cantrell smoking/tobacco cess ation, patient education and counseling yes Jacob Cash RN drug use no Jacob Cash RN passive cigarette sm tej exposure yes Jacob Cash RN smoking history, tot al pack/day 1/4 Jacob Cash RN smoking history, tot al pack/year 43 Jacob Cash RN cigarette use yes Jacob Cash RN smoking, date started 1969 Horacio key RN social history E&M Marital Statu s: L gavin with family/friends E thnicity: Jacob Cash RN caffeine use, averag e drinks per day yes Jacob Cash RN alcohol use, average drinks per day social Jacob Cash RN smoking status current every day smoker Shad Cash RN social history reviewed E&M reviewed Jacob Cash RN MENTAL STATUS Date Observation Value Provider assessment of judgme nt and insight E&M Alert and oriented to time, place and person. Mood and affect are normal. Jacob Cash RN assessment of judgme nt and insight E&M Alert and oriented to time, place and person. Mood and affect are normal. Beto Hutchinson MD assessment of judgme nt and insight E&M Alert and oriented to time, place and person. Mood and affect are normal. Beto Hutchinson MD assessment of judgme nt and insight E&M Alert and oriented to time, place and person. Mood and affect are normal. Jacob Cash RN assessment of judgme nt and insight E&M Alert and oriented to time, place and person. Mood and affect are normal. Herson Guzmán MD assessment of judgme nt and insight E&M Alert and oriented to time, place and person. Mood and affect are normal. Jacob Cash RN FAMILY HISTORY Family Member Condition Father Family History of Co ngestive Heart Failure: Father Family History of Hy pertension: Father Family History of Hy perlipidemia: Father Family History of Di abetes: Mother Family History of Hy perlipidemia: INSURANCE PROVIDERS Payer name Policy type / Coverage type [employer] party ID [facility] [id number] TREATMENT PLAN Date Name Performer CPOE A&P:BP: 141/79 (07/06/2015) P rior BP: 130/72 (12/15/2014) Lon Dickinson CPOE A&P:The pt has a history of paroxysmal afib. She has been doing well on Coreg 12.5mg BID. Lon Dickinson Follow up Herson Guzmán MD Follow Up:141/75 H er updated medication list for this problem includes: Diovan 80 Mg Tabs (Valsartan) ..... One tab. daily Aspirin 325 Mg Tabs (Aspirin) ..... One tab. daily Herson Guzmán MD Follow Up: T he following medications were removed from the medication list: Rythmol Sr 325 Mg Cs50h-dtp (Propafenone hcl) ..... One tablet a day Her updated medication list for this problem includes: Aspirin 325 Mg Tabs (Aspirin) ..... One tab. daily Herson Guzmán MD Follow Up Herson Guzmán MD routine: H er updated medication list for this problem includes: Aspirin 325 Mg Tabs (Aspirin) ..... One tab. daily Cardizem Cd 180 Mg Cp24 (Diltiazem hcl coated beads) ..... One daily Diovan 80 Mg Tabs (Valsartan) ..... One tab. daily Prior BP: 112/71 (11/10/2012) Herson Guzmán MD routine: H er updated medication list for this problem includes: Aspirin 325 Mg Tabs (Aspirin) ..... One tab. daily Cardizem Cd 180 Mg Cp24 (Diltiazem hcl coated beads) ..... One daily B P today: / Prior BP: 112/71 (11/10/2012) N uclear Stress Findings: No scintigraphic evidence of stress induced ischemia or wall motion abnormality. Left ventricular ejection fraction is 81% which is within normal limits.- [facility] (10/28/2012) Herson Guzmán MD routine Herson Guzmán MD routine: T he following medications were removed from the medication list: Flecainide Acetate 100 Mg Tabs (Flecainide acetate) ..... 1 tab po bid Her updated medication list for this problem includes: Aspirin 325 Mg Tabs (Aspirin) ..... One tab. daily Cardizem Cd 180 Mg Cp24 (Diltiazem hcl coated beads) ..... One daily Rythmol Sr 325 Mg [id number] (Propafenone hcl) ..... 1 tab po bid BP today: / Prior BP: 112/71 (11/10/2012) N uclear Stress Findings: No scintigraphic evidence of stress induced ischemia or wall motion abnormality. Left ventricular ejection fraction is 81% which is within normal limits.- [facility] (10/28/2012) Herson Guzmán MD routine: T he following medications were removed from the medication list: Flecainide Acetate 100 Mg Tabs (Flecainide acetate) ..... 1 tab po bid Her updated medication list for this problem includes: Aspirin 325 Mg Tabs (Aspirin) ..... One tab. daily Rythmol Sr 325 Mg [id number] (Propafenone hcl) ..... 1 tab po bid BP today: / Prior BP: 112/71 (11/10/2012) N uclear Stress Findings: No scintigraphic evidence of stress induced ischemia or wall motion abnormality. Left ventricular ejection fraction is 81% which is within normal limits.- [facility] (10/28/2012) Herson Guzmán MD follow up:112/71 H er updated medication list for this problem includes: Aspirin 325 Mg Tabs (Aspirin) ..... One tab. daily Cardizem Cd 180 Mg Cp24 (Diltiazem hcl coated beads) ..... One daily Diovan 80 Mg Tabs (Valsartan) ..... One tab. daily Herson Guzmán MD follow up Herson Guzmán MD follow up: H er updated medication list for this problem includes: Aspirin 325 Mg Tabs (Aspirin) ..... One tab. daily Cardizem Cd 180 Mg Cp24 (Diltiazem hcl coated beads) ..... One daily Flecainide Acetate 100 Mg Tabs (Flecainide acetate) ..... 1 tab po bid Herson Guzmán MD follow up: H er updated medication list for this problem includes: Aspirin 325 Mg Tabs (Aspirin) ..... One tab. daily Flecainide Acetate 100 Mg Tabs (Flecainide acetate) ..... 1 tab po bid I have increased the flecainide to 100 mg po bid. Herson Guzmán MD hosp f/u : H er updated medication list for this problem includes: Aspirin 325 Mg Tabs (Aspirin) ..... One tab. daily Cardizem Cd 180 Mg Cp24 (Diltiazem hcl coated beads) ..... One daily Flecainide Acetate 50 Mg Tabs (Flecainide acetate) ..... 1 tab po bid. Herson Guzmán MD hosp f/u Herson Guzmán MD hosp f/u : H er updated medication list for this problem includes: Aspirin 325 Mg Tabs (Aspirin) ..... One tab. daily Cardizem Cd 180 Mg Cp24 (Diltiazem hcl coated beads) ..... One daily Herson Guzmán MD hosp f/u :112/60 H er updated medication list for this problem includes: Aspirin 325 Mg Tabs (Aspirin) ..... One tab. daily Cardizem Cd 180 Mg Cp24 (Diltiazem hcl coated beads) ..... One daily Diovan 80 Mg Tabs (Valsartan) ..... One tab. daily Herson Guzmán MD Date Name Complete Echo Mobile Cardiac Tele Complete Echo Full PFT Mobile Cardiac Tele Mobile Cardiac Tele Spirometry Spirometry HISTORY OF PROCEDURES Procedure Date Procedure Name Provider Procedure Notes S kristopherus SNOMED-CT: [id number] Smoking Cessation Counseling Herson Guzmán MD completed SNOMED-CT: 228952007105500 Current Medications Documented Herson Guzmán MD completed EKG Herson Guzmán MD completed Schedule Followup Beto lozano MD in 6 months telecentry - 1week f u with SK in 1 year completed EKG Beto leo MD completed Schedule Followup Beto lozano MD fu in 6-7 weeks completed EKG Beto leo MD completed Schedule Followup Beto lozano MD follow-up appointment with me (ELIZABETH) in 1 month completed EKG Beto leo MD completed
[2024-12-07 16:57] LABS: Rheumatoid Factor < 12.0 IU/ML (<12)
[2024-12-07 16:58] LABS: CRP 1.7 mg/dL (<1.0); Uric Acid 5.3 mg/dL (2.5-7.5)
[2024-12-07 17:02] LABS: Erythrocyte Sedimentation Rate 21 mm/hr (0-20)
[2024-12-09 15:03] LABS: Cyclic Citrullinated Peptide <16 UNITS
== END 2024-12-07 15:28 | disposition home or self-care (01) ==
PROVIDERS: PCP Internal Medicine; Visit Provider Podiatrist Foot & Ankle Surgery
DX: M10.079 Idiopathic gout, unspecified ankle and foot (principal); M06.9 Rheumatoid arthritis, unspecified; M19.079 Primary osteoarthritis, unspecified ankle and foot; M45.9 Ankylosing spondylitis of unspecified sites in spine
CPT/HCPCS: 36415; 84550; 85025; 85652; 86038; 86039; 86140; 86200; 86430

== ENCOUNTER 2024-12-21 09:00 | Outpatient (CLI) | payer BC, MEDICARE, SELFPAY ==
--- OUTSIDE RECORDS SUMMARY | 2024-12-20 14:01 | XMS_ITS | Encounter Summary ---
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
--- OUTSIDE RECORDS SUMMARY | 2024-12-20 14:01 | XMS_ITS | Referral Summary ---
Author Organization [facility] Address [address] [place] [address] Care Team Providers Care Family Assistant Name Role Phone Mark Goel MD Primary Care Provider [phone] Chaparro Reed MD Unavailable [phone] Allergies Active Allergy Reactions Criticality Noted Date [...] 08/05/2021 Assessment & Plan (08/05/2021 4:24 PM TRUMPET PLAYER): - will discuss at next visit Gastroesophageal reflux disease 08/03/2021 Overview (08/03/2021): Added automatically from request for surgery [id number] Assessment & Plan (08/05/2021 4:23 PM TRUMPET PLAYER): - discussed with Ms. 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 [employer] Not on file Not on file N [...] 9:43 AM CDT Height 167.6 cm (5' 6) 12/17/2023 9:43 AM CDT Body Mass Index 26.63 12/17/2023 9:43 AM CDT Plan of Treatment Not on file Medical Devices Implanted Type Area Rat Trapper Device Identifier Shelf Expiration Date Model / Serial / Lot [employer]/C R Bard [id number] Monofilament Soft Lightweight Low Profile Square - [id number] Implanted:Qty: 1 on 02/17/2019 by Charity Henry MD at [facility] Mesh Abdomen [employer] [id number] 09/28/2023 [id number] / / [id number] Procedures Procedure Name Priority Date/Time Associated Diagnosis Comments COLONOSCOPY 03/25/2022 8:25 AM CDT DEXA AXIAL SKELETON BONE DENSITY 1 OR MORE SITES Schedule Routine, Read Routine (OP Routine) 07/11/2021 1:23 PM TRUMPET PLAYER Age-related osteoporosis without current pathological fracture Difficulty [...] Female Attending MD: Fiona Sharpe M.D. Room: [facility] ENDOSCOPY ROOM 3 Note Status: Finalized Procedure: [...] The scope was passed under direct vision.The [id number] endoscope was introduced through the anus and advanced to the terminal ileum. The colonoscopy was performed without difficulty. The patient tolerated the procedure well. The qualityof the bowel preparation was evaluated using the BBPS ([place]ocker Bowel Preparation Scale) with scores of:Right Colon [...] On: 03/25/2022 8:25 AM Recognized by the [place] [employer] for promoting quality in endoscopy us Fiona Sharpe MD ENDOSCOPY PROCEDURES Final Res ult * Dexa Axial Skeleton Bone Density 1 or 2 Site (07/11/2021 1:23 PM TRUMPET PLAYER) Anatomical Region Laterality Modality Body N/A Radiographic Brittney ging Narrative 07/11/2021 2:32 PM TRUMPET PLAYER Patient Name: Renetta Yang Date of : 1955 Date of scan: 07/11/2021 Bone mineral density was performed on a HoloCazoodle Discovery Densitometer. Based on machine cross-calibration and [...] by the International Society of Clinical Densitometry. [id number] Michelle Cumimngs MD IMG DXA PROCEDURES Final Re sult from Last 3 Months or Most Recently Relevant to Health Maintenance Insurance MEDICARE BLUE ACCESS CHOICE HI UHC MEDICARE ADVANTAGE BLUE ACCESS CHOICE HI MEDICARE MEDICARE [facility] ACCESS MEDICARE BLUE ACCESS [facility] Advance Directives For more information, please contact: [phone] * Full Code (Latest Code Status on File) Date Activated Date Inactivated Comments 08/13/2021 12:34 PM 08/13/2021 5:48 PM * Full Code Date Activated Date Inactivated Comments 02/17/2019 5:30 PM 02/21/2019 5:22 PM Care Teams Family Assistant Relationship Specialty Start Date End Date Mark Goel MD PCP - General Internal Medicine 12/07/18 Chaparro Reed MD Referring Physician Gastroenterology 12/31/18
--- OUTSIDE RECORDS SUMMARY | 2024-12-20 14:01 | XMS_ITS | Data Portability ---
[facility] [address] [place] [address] Care Team Providers Care Talent Agent Name Role Phone JULIETA GOEL Primary Care Provider Assessment Encounter Date Assessment Date Assessment LastModified by Organization Details LastModified Time 11/20/2023 11/20/2023 Blood pressure 142/88 we will continue conservative measures low-fat diet stressed [id number] omeprazole mammogram C-scope recommended recommend to stay up-to-date on immunizations but she says he is not going to get any in the next months. Follow-up with me in 6 [email or web address] Not available 11/20/2023 21:07:51 04/08/2024 04/08/2024 soft diet CBC CMP lipase Zofran yl call in 3 days with update obtain ER records [email or web address] Not available 04/17/2024 15:33:25 05/18/2024 05/18/2024 we will continue current therapies and healthy lifestyle care instructions discussed follow up with me in 4 months. [email or web address] Not available 05/18/2024 23:06:36 09/21/2024 09/21/2024 hypertension uncontrolled add amlodipine 5 mg daily GERD conservative measures and omeprazole. Cellulitis toe doxycycline. Flu shot. Healthy lifestyle care instructions. Continue current therapy. Four month follow up. But she will come get a blood pressure checked in a week or 2 [email or web address] Not available 09/26/2024 19:51:29 Plan of Treatment Reminders Order Date Submit Date Provider Last Modified By Organization Details Last Modified Time Details Appointments ANY 15 2024 01:15P Sary Goel MD Not available Not available Not available Lab CMP, serum or plasma 2024 025 [place] [facility], [address], [address], [place], [address], 09/22/2024 08:24:24 CBC w/ auto diff 2024 025 [facility], [address], [address], [place], [address], 09/22/2024 08:24:26 lipid panel, serum 2024 025 [place] [facility], [address], [address], [place], [address], 09/22/2024 08:24:23 [facility] w/ auto diff [facility]23 [facility] [address], [address], [place], [address], 04/09/2024 08:26:22 CMP, serum or plasma 2023 024 [place] [facility], [address], [address], [place], [address], 04/09/2024 08:26:21 lipase, serum or plasma 2023 024 [place] [facility], [address], [address], [place], [address], 04/09/2024 08:26:22 CMP, serum or plasma 2023 024 [place] [facility], [address], [address], [place], [address], 11/21/2023 07:15:54 CBC w/ auto diff 2023 024 [place] [facility], [address], [address], [place], [address], 11/21/2023 07:15:54 lipid panel, serum 2023 024 [facility], [address], [address], [address], 11/21/2023 07:15:53 Referral None recorded. Procedures None recorded. Surgeries None recorded. Imaging None recorded. Medication Orders doxycycli ne hyclate 100 mg capsule [address] [id number], [address], [place], [place], [id number], 09/21/2024 15:27:02 amlodipin e 5 mg tablet [address] [id number], [address], [place], [place], [id number], 09/21/2024 15:27:02 atorvasta tin 10 mg tablet [address] [id number], [address], [place], [place], [id number], 09/21/2024 21:15:03 Zofran 4 mg tablet 2023 024 [facility][id number], [address], [place], [place], [id number], 05/18/2024 15:09:44 Flagyl 500 mg tablet 2023 024 [facility], [address], [place], [place], [id number], 05/18/2024 15:10:41 Patient TargetsNo targets recorded. Patient Instructions Encounter Date Encounter Id Patient Instructions Last Modified By Organization Details Last Modified Time 05/18/2024 [id number] A healthy lifestyle: care instructions [email or web address] Not available 05/18/2024 23:06:57 09/21/2024 [id number] A healthy lifestyle: care instructions [email or web address] Not available 09/21/2024 15:27:02 Reason for Referral None Reported. Results Created Date Observation Date Name Description Value Unit Range Abnormal Flag Note LastModifiedBy Organization Detail LastModifiedTime 11/20/19 24 11/21/2023 LIPID PANEL cholesterol, total 227 mg/dL 100-19 9 above high normal Not Available [facility] ([facility]) [address] [place], [address], 11/21/2023 07:15:53 11/20/19 24 11/21/2023 LIPID PANEL triglyceride s 314 mg/dL 0-149 above high normal Not Available [facility] ([facility]) [address] [place], [address], 11/21/2023 07:15:53 11/20/19 24 11/21/2023 LIPID PANEL HDL cholesterol 44 mg/dL >39 Not Available [facility] ([facility]) [address] [place], [address], 11/21/2023 07:15:53 11/20/19 24 11/21/2023 LIPID PANEL VLDL cholesterol chetan 56 mg/dL 5-40 above high normal Not Available [facility] ([facility]) [address] [place], [address], 11/21/2023 07:15:53 11/20/19 24 11/21/2023 LIPID PANEL LDL chol calc ([facility]) 127 mg/dL 0-99 above high normal Not Available [facility] ([facility]) [address] [place], [address], 11/21/2023 07:15:53 11/20/19 24 11/21/2023 CMP14 glucose 131 mg/dL 70-99 above high normal Not Available [facility] ([facility]) [address] [place], [address], 11/21/2023 07:15:54 11/20/19 24 11/21/2023 CMP14 BUN 11 mg/dL 8-27 Not Available [facility] ([facility]) [address] [facility], [place], [address], 11/21/2023 07:15:54 11/20/19 24 11/21/2023 CMP14 creatinine 0.81 mg/dL 0.57-1 .00 Not Available [facility] ([facility]) [address] [facility], [place], [address], 11/21/2023 07:15:54 11/20/19 24 11/21/2023 CMP14 eGFR 79 mL/mi n/1.7 3 >59 Not Available [facility] ([facility]) [address] [facility], [place], [address], 11/21/2023 07:15:54 11/20/19 24 11/21/2023 CMP14 sodium 141 mmol/ L 134-14 4 Not Available [facility] ([facility]) [address] [facility], [place], [address], 11/21/2023 07:15:54 11/20/19 24 11/21/2023 CMP14 potassium 3.7 mmol/ L 3.5-5. 2 Not Available [facility] ([facility]) [address] [facility], [place], [address], 11/21/2023 07:15:54 11/20/19 24 11/21/2023 CMP14 chloride 99 mmol/ L 96-106 Not Available [facility] ([facility]) [address] [facility], [place], [address], 11/21/2023 07:15:54 11/20/19 24 11/21/2023 CMP14 carbon dioxide, total 26 mmol/ L 20-29 Not Available [facility] ([facility]) [address] [facility], [place], [address], 11/21/2023 07:15:54 11/20/19 24 11/21/2023 CMP14 calcium 9.0 mg/dL 8.7-10 .3 Not Available [facility] ([facility]) [address] [place], [address], 11/21/2023 07:15:54 11/20/19 24 11/21/2023 CMP14 protein, total 6.6 g/dL 6.0-8. 5 Not Available [facility] ([facility]) [address] [facility], [place], [address], 11/21/2023 07:15:54 11/20/19 24 11/21/2023 CMP14 albumin 4.0 g/dL 3.9-4. 9 Not Available [facility] ([facility]) [address], [place], [address], 11/21/2023 07:15:54 11/20/19 24 11/21/2023 CMP14 globulin, total 2.6 g/dL 1.5-4. 5 Not Available [facility] ([facility]) [address] [place], [address], 11/21/2023 07:15:54 11/20/19 24 11/21/2023 CMP14 A/G ratio 1.5 1.2-2. 2 Not Available [facility] ([facility]) [address] [facility], [place], [address], 11/21/2023 07:15:54 11/20/19 24 11/21/2023 CMP14 bilirubin, total 0.3 mg/dL 0.0-1. 2 Not Available [facility] ([facility]) [address] [place], [address], 11/21/2023 07:15:54 11/20/19 24 11/21/2023 CMP14 alkaline phosphatase 114 IU/L 44-121 Not Available [facility] ([facility] [address] [place], [address], 11/21/2023 07:15:54 11/20/19 24 11/21/2023 CMP14 AST (SGOT) 32 IU/L 0-40 Not Avail able [facility] ([facility]) [address] [place], [address], 11/21/2023 07:15:54 11/20/19 24 11/21/2023 CMP14 ALT (SGPT) 33 IU/L 0-32 above high normal Not Available [facility] ([facility]) [address] [facility], [place], [address], 11/21/2023 07:15:54 11/20/19 24 11/21/2023 CBC WITH DIFFE RENTI AL/PL ATELE T WBC 8.7 x10e3 /uL 3.4-10 .8 Not Available [facility] ([facility]) [address] [facility], [place], [address], 11/21/2023 07:15:54 11/20/19 24 11/21/2023 CBC WITH DIFFE RENTI AL/PL ATELE T RBC 4.29 x10e6 /uL 3.77-5 .28 Not Available [facility] ([facility]) [address] [place], [address], 11/21/2023 07:15:54 11/20/19 24 11/21/2023 CBC WITH DIFFE RENTI AL/PL ATELE T hemoglobin 12.5 g/dL 11.1-1 5.9 Not Available [facility] ([facility]) [address] [place], [address], 11/21/2023 07:15:54 11/20/19 24 11/21/2023 CBC WITH DIFFE RENTI AL/PL ATELE T hematocrit 37.7 % 34.0-4 6.6 Not Available [facility] ([facility]) [address] [place], [address], 11/21/2023 07:15:54 11/20/19 24 11/21/2023 CBC WITH DIFFE RENTI AL/PL ATELE T MCV 88 fL 79-97 Not Available [facility] ([facility]) [address] [facility], [place], [address], 11/21/2023 07:15:54 11/20/19 24 11/21/2023 CBC WITH DIFFE RENTI AL/PL ATELE T MCH 29.1 pg 26.6-3 3.0 Not Available [facility] ([facility]) [address] [facility], [place], [address], 11/21/2023 07:15:54 11/20/19 24 11/21/2023 CBC WITH DIFFE RENTI AL/PL ATELE T MCHC 33.2 g/dL 31.5-3 5.7 Not Available [facility] ([facility]) [address] [place], [address], 11/21/2023 07:15:54 11/20/19 24 11/21/2023 CBC WITH DIFFE RENTI AL/PL ATELE T RDW 14.6 % 11.7-1 5.4 Not Available [facility] ([facility]) [address] [place], [address], 11/21/2023 07:15:54 11/20/19 24 11/21/2023 CBC WITH DIFFE RENTI AL/PL ATELE T platelets 274 x10e3 /uL 150-45 0 Not Available [facility] ([facility]) [address] [facility], [place], [address], 11/21/2023 07:15:54 11/20/19 24 11/21/2023 CBC WITH DIFFE RENTI AL/PL ATELE T neutrophils 71 % notest ab. Not Available [facility] ([facility]) [address] [place], [address], 11/21/2023 07:15:54 11/20/19 24 11/21/2023 CBC WITH DIFFE RENTI AL/PL ATELE T lymphs 17 % notest ab. Not Available [facility] ([facility]) [address] [facility], [place], [address], 11/21/2023 07:15:54 11/20/19 24 11/21/2023 CBC WITH DIFFE RENTI AL/PL ATELE T monocytes 9 % notest ab. Not Available [facility] ([facility]) [address] [facility], [place], [address], 11/21/2023 07:15:54 11/20/19 24 11/21/2023 CBC WITH DIFFE RENTI AL/PL ATELE T eos 2 % notest ab. Not Available [facility] ([facility]) [address] [facility], [place], [address], 11/21/2023 07:15:54 11/20/19 24 11/21/2023 CBC WITH DIFFE RENTI AL/PL ATELE T basos 0 % notest ab. Not Available [facility] ([facility]) [address] [facility], [place], [address], 11/21/2023 07:15:54 11/20/19 24 11/21/2023 CBC WITH DIFFE RENTI AL/PL ATELE T neutrophils (absolute) 6.1 x10e3 /uL 1.4-7. 0 Not Available [facility] ([facility]) [address] [place], [address], 11/21/2023 07:15:54 11/20/19 24 11/21/2023 CBC WITH DIFFE RENTI AL/PL ATELE T lymphs (absolute) 1.5 x10e3 /uL 0.7-3. 1 Not Available [facility] ([facility]) [address] [place], [address], 11/21/2023 07:15:54 11/20/19 24 11/21/2023 CBC WITH DIFFE RENTI AL/PL ATELE T monocytes(ab solute) 0.8 x10e3 /uL 0.1-0. 9 Not Available [facility] ([facility]) [address] [place], [address], 11/21/2023 07:15:54 11/20/19 24 11/21/2023 CBC WITH DIFFE RENTI AL/PL ATELE T eos (absolute) 0.2 x10e3 /uL 0.0-0. 4 Not Available [facility] ([facility]) [address] [facility], [place], [address], 11/21/2023 07:15:54 11/20/19 24 11/21/2023 CBC WITH DIFFE RENTI AL/PL ATELE T baso (absolute) 0.0 x10e3 /uL 0.0-0. 2 Not Available [facility] ([facility]) [address] [facility], [place], [address], 11/21/2023 07:15:54 11/20/19 24 11/21/2023 CBC WITH DIFFE RENTI AL/PL ATELE T immature granulocytes 1 % notest ab. Not Available [facility] ([facility]) [address] [facility], [place], [address], 11/21/2023 07:15:54 11/20/19 24 11/21/2023 CBC WITH DIFFE RENTI AL/PL ATELE T immature grans (abs) 0.1 x10e3 /uL 0.0-0. 1 Not Available [facility] ([facility]) [address] [place], [address], 11/21/2023 07:15:54 12/11/19 24 12/12/2023 HEMOG LOBIN A1C hemoglobin A1C 7.2 % 4.8-5. 6 above high normal Predi abete s: 5.7 - 6.4 Diabe joana: >6.4 Glyce golden contr ol for adult s with diabe joana: <7.0 Not Available [facility] ([facility]) [address] [place], [address], 12/12/2023 03:37:09 04/08/20 24 04/09/2024 COMP. METAB OLIC PANEL (14) glucose 173 mg/dL 70-99 above high normal Not Available [facility] ([facility]) [address] [place], [address], 04/09/2024 08:26:21 04/08/20 24 04/09/2024 COMP. METAB OLIC PANEL (14) BUN 21 mg/dL 8-27 Not Available [facility] ([facility]) [address] [place], [address], 04/09/2024 08:26:21 04/08/20 24 04/09/2024 COMP. METAB OLIC PANEL (14) creatinine 0.86 mg/dL 0.57-1 .00 Not Available [facility] ([facility]) [address] [place], [address], 04/09/2024 08:26:21 04/08/20 24 04/09/2024 COMP. METAB OLIC PANEL (14) eGFR 73 mL/mi n/1.7 3 >59 Not Available [facility] ([facility]) [address] [place], [address], 04/09/2024 08:26:21 04/08/20 24 04/09/2024 COMP. METAB OLIC PANEL (14) BUN/creatini ne ratio 24 - Not Available [facility] ([facility]) [address] [place], [address], 04/09/2024 08:26:21 04/08/20 24 04/09/2024 COMP. METAB OLIC PANEL (14) sodium 136 mmol/ L 134-14 4 Not Available [facility] ([facility]) [address] [place], [address], 04/09/2024 08:26:21 04/08/20 24 04/09/2024 COMP. METAB OLIC PANEL (14) potassium 3.9 mmol/ L 3.5-5. 2 Not Available [facility] ([facility]) [address] [place], [address], 04/09/2024 08:26:21 04/08/20 24 04/09/2024 COMP. METAB OLIC PANEL (14) chloride 97 mmol/ L 96-106 Not Available [facility] ([facility]) [address] [place], [address], 04/09/2024 08:26:21 04/08/20 24 04/09/2024 COMP. METAB OLIC PANEL (14) carbon dioxide, total 22 mmol/ L 20-29 Not Available [facility] ([facility]) [address] [place], [address], 04/09/2024 08:26:21 04/08/20 24 04/09/2024 COMP. METAB OLIC PANEL (14) calcium 10.2 mg/dL 8.7-10 .3 Not Available [facility] ([facility]) [address] [place], [address], 04/09/2024 08:26:21 04/08/20 24 04/09/2024 COMP. METAB OLIC PANEL (14) protein, total 6.7 g/dL 6.0-8. 5 Not Available [facility] ([facility]) [address] [place], [address], 04/09/2024 08:26:21 04/08/20 24 04/09/2024 COMP. METAB OLIC PANEL (14) albumin 4.2 g/dL 3.9-4. 9 Not Available [facility] ([facility]) [address] [place], [address], 04/09/2024 08:26:21 04/08/20 24 04/09/2024 COMP. METAB OLIC PANEL (14) globulin, total 2.5 g/dL 1.5-4. 5 Not Available [facility] ([facility]) [address] [place], [address], 04/09/2024 08:26:21 04/08/20 24 04/09/2024 COMP. METAB OLIC PANEL (14) bilirubin, total 0.4 mg/dL 0.0-1. 2 Not Available [facility] ([facility]) [address] [place], [address], 04/09/2024 08:26:21 04/08/20 24 04/09/2024 COMP. METAB OLIC PANEL (14) alkaline phosphatase 122 IU/L 44-121 above high normal Not Available [facility] ([facility]) [address] [facility], [place], [address], 04/09/2024 08:26:21 04/08/20 24 04/09/2024 COMP. METAB OLIC PANEL (14) AST (SGOT) 46 IU/L 0-40 above high normal Not Available [facility] ([facility]) [address] [place], [address], 04/09/2024 08:26:21 04/08/20 24 04/09/2024 COMP. METAB OLIC PANEL (14) ALT (SGPT) 38 IU/L 0-32 above high normal Not Available [facility] ([facility]) [address] [place], [address], 04/09/2024 08:26:21 04/08/20 24 04/09/2024 LIPAS E lipase 38 U/L 14-72 Not Available [facility] ([facility]) [address] [place], [address], 04/09/2024 08:26:22 04/08/20 24 04/09/2024 CBC WITH DIFFE RENTI AL/PL ATELE T WBC 7.4 x10e3 /uL 3.4-10 .8 Not Available [facility] ([facility]) [address] [facility], [place], [address], 04/09/2024 08:26:22 04/08/20 24 04/09/2024 CBC WITH DIFFE RENTI AL/PL ATELE T RBC 4.48 x10e6 /uL 3.77-5 .28 Not Available [facility] ([facility]) [address] [facility], [place], [address], 04/09/2024 08:26:22 04/08/20 24 04/09/2024 CBC WITH DIFFE RENTI AL/PL ATELE T hemoglobin 13.1 g/dL 11.1-1 5.9 Not Available [facility] ([facility]) [address] [facility], [place], [address], 04/09/2024 08:26:22 04/08/20 24 04/09/2024 CBC WITH DIFFE RENTI AL/PL ATELE T hematocrit 40.3 % 34.0-4 6.6 Not Available [facility] ([facility]) [address] [facility], [place], [address], 04/09/2024 08:26:22 04/08/2004/09/2024 CBC WITH DIFFE RENTI AL/PL ATELE T MCV 90 fL 79-97 Not Available [facility] ([facility]) [address] [facility], [place], [address], 04/09/2024 08:26:22 04/08/20 24 04/09/2024 CBC WITH DIFFE RENTI AL/PL ATELE T MCH 29.2 pg 26.6-3 3.0 Not Available [facility] ([facility]) [address] [place], [address], 04/09/2024 08:26:22 04/08/20 24 04/09/2024 CBC WITH DIFFE RENTI AL/PL ATELE T MCHC 32.5 g/dL 31.5-3 5.7 Not Available [facility] ([facility]) [address] [facility], [place], [address], 04/09/2024 08:26:22 04/08/20 24 04/09/2024 CBC WITH DIFFE RENTI AL/PL ATELE T RDW 14.6 % 11.7-1 5.4 Not Available [facility] ([facility]) [address] [facility], [place], [address], 04/09/2024 08:26:22 04/08/20 24 04/09/2024 CBC WITH DIFFE RENTI AL/PL ATELE T platelets 295 x10e3 /uL 150-45 0 Not Available [facility] ([facility]) [address] [facility], [place], [address], 04/09/2024 08:26:22 04/08/20 24 04/09/2024 CBC WITH DIFFE RENTI AL/PL ATELE T neutrophils 66 % notest ab. Not Available [facility] ([facility]) [address] [facility], [place], [address], 04/09/2024 08:26:22 04/08/20 24 04/09/2024 CBC WITH DIFFE RENTI AL/PL ATELE T lymphs 22 % notest ab. Not Available [facility] ([facility]) [address] [facility], [place], [address], 04/09/2024 08:26:22 04/08/20 24 04/09/2024 CBC WITH DIFFE RENTI AL/PL ATELE T monocytes 9 % notest ab. Not Available [facility] ([facility]) [address] [facility], [place], [address], 04/09/2024 08:26:22 04/08/20 24 04/09/2024 CBC WITH DIFFE RENTI AL/PL ATELE T eos 3 % notest ab. Not Available [facility] ([facility]) [address] [facility], [place], [address], 04/09/2024 08:26:22 04/08/20 24 04/09/2024 CBC WITH DIFFE RENTI AL/PL ATELE T basos 0 % notest ab. Not Available [facility] ([facility]) [address] [facility], [place], [address], 04/09/2024 08:26:22 04/08/20 24 04/09/2024 CBC WITH DIFFE RENTI AL/PL ATELE T neutrophils (absolute) 4.9 x10e3 /uL 1.4-7. 0 Not Available [facility] ([facility]) [address] [facility], [place], [address], 04/09/2024 08:26:22 04/08/20 24 04/09/2024 CBC WITH DIFFE RENTI AL/PL ATELE T lymphs (absolute) 1.6 x10e3 /uL 0.7-3. 1 Not Available [facility] ([facility]) [address] [facility], [place], [address], 04/09/2024 08:26:22 04/08/20 24 04/09/2024 CBC WITH DIFFE RENTI AL/PL ATELE T monocytes(ab solute) 0.6 x10e3 /uL 0.1-0. 9 Not Available [facility] ([facility]) [address] [place], [address], 04/09/2024 08:26:22 04/08/20 24 04/09/2024 CBC WITH DIFFE RENTI AL/PL ATELE T eos (absolute) 0.2 x10e3 /uL 0.0-0. 4 Not Available [facility] ([facility]) [address] [place], [address], 04/09/2024 08:26:22 04/08/20 24 04/09/2024 CBC WITH DIFFE RENTI AL/PL ATELE T baso (absolute) 0.0 x10e3 /uL 0.0-0. 2 Not Available [facility] ([facility]) [address] [facility], [place], [address], 04/09/2024 08:26:22 04/08/20 24 04/09/2024 CBC WITH DIFFE RENTI AL/PL ATELE T immature granulocytes 0 % notest ab. Not Available [facility] ([facility]) [address] [facility], [place], [address], 04/09/2024 08:26:22 04/08/20 24 04/09/2024 CBC WITH DIFFE RENTI AL/PL ATELE T immature grans (abs) 0.0 x10e3 /uL 0.0-0. 1 Not Available [facility] ([facility]) [address] [facility], [place], [address], 04/09/2024 08:26:22 09/21/19 25 09/22/2024 LIPID PANEL cholesterol, total 220 mg/dL 100-19 9 above high normal Not Available [facility] ([facility]) [address] [place], [address], 09/22/2024 08:24:23 09/21/19 25 09/22/2024 LIPID PANEL triglyceride s 288 mg/dL 0-149 above high normal Not Available [facility] ([facility]) [address] [facility], [place], [address], 09/22/2024 08:24:23 09/21/19 25 09/22/2024 LIPID PANEL HDL cholesterol 47 mg/dL >39 Not Available [facility] ([facility]) [address] [place], [address], 09/22/2024 08:24:23 09/21/19 25 09/22/2024 LIPID PANEL VLDL cholesterol chetan 51 mg/dL 5-40 above high normal Not Available [facility] ([facility]) [address] [place], [address], 09/22/2024 08:24:23 09/21/19 25 09/22/2024 LIPID PANEL LDL chol calc ([facility]) 122 mg/dL 0-99 above high normal Not Available [facility] ([facility]) [address] [place], [address], 09/22/2024 08:24:23 09/21/19 25 09/22/2024 COMP. METAB OLIC PANEL (14) glucose 166 mg/dL 70-99 above high normal Not Available [facility] ([facility]) [address] [place], [address], 09/22/2024 08:24:24 09/21/19 25 09/22/2024 COMP. METAB OLIC PANEL (14) BUN 12 mg/dL 8-27 Not Available [facility] ([facility]) [address] [place], [address], 09/22/2024 08:24:24 09/21/19 25 09/22/2024 COMP. METAB OLIC PANEL (14) creatinine 0.90 mg/dL 0.57-1 .00 Not Available [facility] ([facility]) [address] [place], [address], 09/22/2024 08:24:24 09/21/19 25 09/22/2024 COMP. METAB OLIC PANEL (14) eGFR 69 mL/mi n/1.7 3 >59 Not Available [facility] ([facility]) [address] [place], [address], 09/22/2024 08:24:24 09/21/19 25 09/22/2024 COMP. METAB OLIC PANEL (14) BUN/creatini ne ratio 13 12-28 Not Available [facility] ([facility]) [address] [place], [address], 09/22/2024 08:24:24 09/21/19 25 09/22/2024 COMP. METAB OLIC PANEL (14) sodium 140 mmol/ L 134-14 4 Not Available [facility] ([facility]) [address] [place], [address], 09/22/2024 08:24:24 09/21/19 25 09/22/2024 COMP. METAB OLIC PANEL (14) potassium 3.7 mmol/ L 3.5-5. 2 Not Available [facility] ([facility]) [address] [place], [address], 09/22/2024 08:24:24 09/21/19 25 09/22/2024 COMP. METAB OLIC PANEL (14) chloride 98 mmol/ L 96-106 Not Available [facility] ([facility]) [address] [place], [address], 09/22/2024 08:24:24 09/21/19 25 09/22/2024 COMP. METAB OLIC PANEL (14) carbon dioxide, total 28 mmol/ L 20-29 Not Available [facility] ([facility]) [address] [place], [address], 09/22/2024 08:24:24 09/21/19 25 09/22/2024 COMP. METAB OLIC PANEL (14) calcium 9.3 mg/dL 8.7-10 .3 Not Available [facility] ([facility]) [address] [place], [address], 09/22/2024 08:24:24 09/21/19 25 09/22/2024 COMP. METAB OLIC PANEL (14) protein, total 6.4 g/dL 6.0-8. 5 Not Available [facility] ([facility]) [address] [place], [address], 09/22/2024 08:24:24 09/21/19 25 09/22/2024 COMP. METAB OLIC PANEL (14) albumin 4.1 g/dL 3.9-4. 9 Not Available [facility] ([facility]) [address] [place], [address], 09/22/2024 08:24:24 09/21/19 25 09/22/2024 COMP. METAB OLIC PANEL (14) globulin, total 2.3 g/dL 1.5-4. 5 Not Available [facility] ([facility]) [address] [facility], [place], [address], 09/22/2024 08:24:24 09/21/19 25 09/22/2024 COMP. METAB OLIC PANEL (14) bilirubin, total 0.2 mg/dL 0.0-1. 2 Not Available [facility] ([facility]) [address] [facility], [place], [address], 09/22/2024 08:24:24 09/21/19 25 09/22/2024 COMP. METAB OLIC PANEL (14) alkaline phosphatase 104 IU/L 44-121 Not Available [facility] [facility]) [address] [facility], [place], [address], 09/22/2024 08:24:24 09/21/19 25 09/22/2024 COMP. METAB OLIC PANEL (14) AST (SGOT) 50 IU/L 0-40 above high normal Not Available [facility] ([facility]) [address] [facility], [place], [address], 09/22/2024 08:24:24 09/21/19 25 09/22/2024 COMP. METAB OLIC PANEL (14) ALT (SGPT) 57 IU/L 0-32 above high normal Not Available [facility] ([facility]) [address] [place], [address], 09/22/2024 08:24:24 09/21/19 25 09/22/2024 CBC WITH DIFFE RENTI AL/PL ATELE T WBC 6.8 x10e3 /uL 3.4-10 .8 Not Available [facility] ([facility]) [address] [place], [address], 09/22/2024 08:24:26 09/21/19 25 09/22/2024 CBC WITH DIFFE RENTI AL/PL ATELE T RBC 4.20 x10e6 /uL 3.77-5 .28 Not Available [facility] ([facility]) [address] [facility], [place], [address], 09/22/2024 08:24:26 09/21/19 25 09/22/2024 CBC WITH DIFFE RENTI AL/PL ATELE T hemoglobin 12.3 g/dL 11.1-1 5.9 Not Available [facility] ([facility]) [address] [place], [address], 09/22/2024 08:24:26 09/21/19 25 09/22/2024 CBC WITH DIFFE RENTI AL/PL ATELE T hematocrit 38.0 % 34.0-4 6.6 Not Available [facility] ([facility]) [address] [place], [address], 09/22/2024 08:24:26 09/21/19 25 09/22/2024 CBC WITH DIFFE RENTI AL/PL ATELE T MCV 91 fL 79-97 Not Available [facility] ([facility]) [address] [place], [address], 09/22/2024 08:24:26 09/21/19 25 09/22/2024 CBC WITH DIFFE RENTI AL/PL ATELE T MCH 29.3 pg 26.6-3 3.0 Not Available [facility] ([facility]) [address] [place], [address], 09/22/2024 08:24:26 09/21/19 25 09/22/2024 CBC WITH DIFFE RENTI AL/PL ATELE T MCHC 32.4 g/dL 31.5-3 5.7 Not Available [facility] ([facility]) [address] [place], [address], 09/22/2024 08:24:26 09/21/19 25 09/22/2024 CBC WITH DIFFE RENTI AL/PL ATELE T RDW 13.7 % 11.7-1 5.4 Not Available [facility] ([facility]) [address] [facility], [place], [address], 09/22/2024 08:24:26 09/21/19 25 09/22/2024 CBC WITH DIFFE RENTI AL/PL ATELE T platelets 246 x10e3 /uL 150-45 0 Not Available [facility] ([facility]) [address] [facility], [place], [address], 09/22/2024 08:24:26 09/21/19 25 09/22/2024 CBC WITH DIFFE RENTI AL/PL ATELE T neutrophils 62 % notest ab. Not Available [facility] ([facility]) [address] [facility], [place], [address], 09/22/2024 08:24:26 09/21/19 25 09/22/2024 CBC WITH DIFFE RENTI AL/PL ATELE T lymphs 23 % notest ab. Not Available [facility] ([facility]) [address] [facility], [place], [address], 09/22/2024 08:24:26 09/21/19 25 09/22/2024 CBC WITH DIFFE RENTI AL/PL ATELE T monocytes 11 % notest ab. Not Available [facility] ([facility]) [address] [facility], [place], [address], 09/22/2024 08:24:26 09/21/19 25 09/22/2024 CBC WITH DIFFE RENTI AL/PL ATELE T eos 3 % notest ab. Not Available [facility] ([facility]) [address] [facility], [place], [address], 09/22/2024 08:24:26 09/21/19 25 09/22/2024 CBC WITH DIFFE RENTI AL/PL ATELE T basos 0 % notest ab. Not Available [facility] ([facility]) [address] [facility], [place], [address], 09/22/2024 08:24:26 09/21/19 25 09/22/2024 CBC WITH DIFFE RENTI AL/PL ATELE T neutrophils (absolute) 4.2 x10e3 /uL 1.4-7. 0 Not Available [facility] ([facility]) [address] [facility], [place], [address], 09/22/2024 08:24:26 09/21/19 25 09/22/2024 CBC WITH DIFFE RENTI AL/PL ATELE T lymphs (absolute) 1.6 x10e3 /uL 0.7-3. 1 Not Available [facility] ([facility]) [address] [place], [address], 09/22/2024 08:24:26 09/21/19 25 09/22/2024 CBC WITH DIFFE RENTI AL/PL ATELE T monocytes(ab solute) 0.7 x10e3 /uL 0.1-0. 9 Not Available [facility] ([facility]) [address] [place], [address], 09/22/2024 08:24:26 09/21/19 25 09/22/2024 CBC WITH DIFFE RENTI AL/PL ATELE T eos (absolute) 0.2 x10e3 /uL 0.0-0. 4 Not Available [facility] ([facility]) [address] [place], [address], 09/22/2024 08:24:26 09/21/19 25 09/22/2024 CBC WITH DIFFE RENTI AL/PL ATELE T baso (absolute) 0.0 x10e3 /uL 0.0-0. 2 Not Available [facility] ([facility]) [address] [place], [address], 09/22/2024 08:24:26 09/21/19 25 09/22/2024 CBC WITH DIFFE RENTI AL/PL ATELE T immature granulocytes 1 % notest ab. Not Available [facility] ([facility]) [address] [facility], [place], [address], 09/22/2024 08:24:26 09/21/19 25 09/22/2024 CBC WITH DIFFE RENTI AL/PL ATELE T immature grans (abs) 0.1 x10e3 /uL 0.0-0. 1 Not Available [facility] ([facility]) [address] [facility], [place], [address], 09/22/2024 08:24:26 10/08/19 25 10/09/2024 HEMOG LOBIN A1C hemoglobin A1C 7.4 % 4.8-5. 6 above high normal Predi abete s: 5.7 - 6.4 Diabe joana: >6.4 Glyce golden contr ol for adult s with diabe joana: <7.0 Not Available [facility] ([facility]) [address] [facility], [place], [address], 10/09/2024 06:25:05 03/21/2003/21/2024 CT, chest , w/ contr ast No observ ation record ed. [address], [address], 04/02/2024 09:59:21 09/22/19 25 03/25/2022 colon oscop [...] Address Organization Details Recorded Time Essential hypertension 33466718 Active 2023 Geraldo Parker MA null, [place] - [facility] 4 17:05:35 Hyperlipidemia 36974061 Active 2023 Julieta Goel MD Attn: Bernice monsivais,[address], [place], [address], [facility] - [facility] 4 21:08:16 Gastroesophage al reflux disease without esophagitis 601953928 Active 2023 Julieta Goel MD Attn: Bernice g,[address], [place], [address], [place] - [facility] 4 21:08:17 Abdominal pain 22306487 Active 2023 Geraldo Parker MA null, [place] [facility] 4 10:55:59 Type 2 diabetes mellitus 12927940 Active 2024 MIRLANDE Marie, [place] - [facility] 5 17:35:05 Problem Notes None recorded. Procedures Surgical History Date Name Laterality Status Provider Name and Address Organization Details Recorded Time 09/01/19 Total hysterectomy completed MIRLANDE Gonzalez [facility] 09/21/2024 14:57:15 Appendectomy completed Roshni Azevedo MA [facility] SI 11/20/2023 16:17:51 Gastrointestinal Surgery completed MIRLANDE Negro [facility] 11/20/2023 16:18:06 Hernia Repair completed Roshni Azevedo MA [facility] SI 11/20/2023 16:18:15 Tubal Ligation completed Roshni Azevedo MA [facility] SI 11/20/2023 16:18:24 Neck spine disk surgery completed MIRLANDE Negro [facility] 11/20/2023 16:21:10 Imaging Results Imaging Date Name Status LastModified by Organiz [facility] Details LastModified Time 03/21/2024 CT, chest, w/ contrast completed [address], [address], 04/02/2024 09:59:21 03/25/2022 colonoscopy procedure (PROC) completed [email or web address] Information not available 09/23/2024 17:45:09 03/25/2022 colonoscopy [...] a dose pack FOLLOW PACKAGE DIRECTIO NS 09/17 /2024 completed Not Available Not Available Not Available [...] Updated DateTime 4 168.91 cm 26.8 kg/m2 34562.0 3 g 91 /min 96 % 96 % 142 mm[Hg] 88 mm[Hg] Roshni Azevedo MA [facility] SI 4 16:24:34 Date Recorded Body height Body mass index (BMI) Body weight Heart rate Oxygen saturation Oxygen saturation in Arterial blood by Pulse oximetry Systolic blood pressure Diastolic blood pressure Provider Name and Address Organization Details Last Updated DateTime 4 168.91 cm 25.8 kg/m2 62643.9 6 g 93 /min 99 % 99 % 134 mm[Hg] 70 mm[Hg] Dona Wade MA [facility] SI 4 10:09:43 Date Recorded Body height Provider Name an d Address Organization Details Last Updated DateTime 05/18/2024 168.91 cm Dona Wade MA [facility] SI 4 14:57:51 Date Recorded Body mass index (BMI) Body weight Heart rate Oxygen saturation Oxygen saturation in Arterial blood by Pulse oximetry Systolic blood pressure Diastolic blood pressure Provider Name and Address Organization Details Last Updated DateTime 4 26.2 kg/m2 88212.7 4 g 96 /min 96 % 96 % 132 mm[Hg] 78 mm[Hg] Olivia Persaud MA [facility] SI 4 15:08:41 Date Recorded Body height Body mass index (BMI) Body weight Heart rate Oxygen saturation Oxygen saturation in Arterial blood by Pulse oximetry Systolic blood pressure Diastolic blood pressure Provider Name and Address Organization Details Last Updated DateTime 5 168.91 cm 25.9 kg/m2 40192.2 7 g 90 /min 98 % 98 % 160 mm[Hg] 86 mm[Hg] Olivia Persaud [place] 14:57:32 Social History Question Answer Notes LastModified by Organizat ion Details LastModified Time Tobacco Smoking Status Former Smoker 10 years ago Roshni Azevedo MA null, [place] 11/20/2023 16:17:40 Do You Have [...] Response Coronary Artery Disease N Other N High Blood Pressure Y Atrial Fibrillation N Kidney or Bladder Problems N Thyroid Problems N GI Problems Y Depression N COPD N Blood Clots N Skin Problems N Anemia N Heart Attack ([place]) N Anxiety Disorder N Diabetes N Muscle, Joint, or Bone Problems Y Seizures/Epilepsy N Acid Reflux (GERD) Y Cancer N Stroke N Asthma N Allergies N High Cholesterol Y Hepatitis N Liver Disease N Headaches N Heart Failure N Osteoporosis Y Gynecological [...] completed Jennifer Linton [place], [place] [facility] 11/12/2024 13:11:49 Influenza, split virus, trivalent, preservative 3 completed Jennifer Linton [place], [place] [facility] 11/12/2024 13:11:49 Influenza, high-dose, trivalent, PF 5 completed Julieta Goel MD Attn: Accounting,[address], [place], [address], [place] 09/26/2024 19:49:45 Past Encounters Encounter ID Performer Location Encounter Start Date Encounter Closed Date Diagnosis/Indication Diagnosis SNOMED-CT Code Diagnosis ICD10 Code Diagnosis Note [id number] Juli[facility] Goel [facility] [address] [place] [phone] 11/20/2023 15:18:05 11/20/2023 17:06:20 Essential hypertension 36681393 I10 Hyperlipidemia 46912572 E78.5 Gastroesop hageal reflux disease without esophagitis 931389322 K21.9 [id number] Julieta Goel MD [facility] [address] [place] [address] 04/08/2024 09:47:31 04/08/2024 10:54:28 Abdominal pain 06782590 R10.9 [id number] Julieta Goel MD [facility] (Adult Med) [address] [place] [phone] 05/18/2024 14:53:17 05/18/2024 16:08:17 Overweight 167973286 E66.3 Essential hypertension 10569859 I10 Hyperlipidemia 10022395 E78.5 Gastroesop hageal reflux disease without esophagitis 572465499 K21.9 [id number] MD [facility] (Adult Med) [address] [place] [phone] 09/21/2024 14:47:08 09/21/2024 15:27:40 Body mass index 25-29 - overweight 585740079 Z68.25 Overweight 803020718 E66 .3 Essential hypertension 42428225 I10 Pain in right foot 24384 78176 22236 M79.671 Administra tion of influenza vaccine 53798946 Z23 Hyperlipidemia 76538898 E78.5 Colonoscopy declined 212 6737499 44555 Z53.20 Gastroesop hageal reflux disease without esophagitis 524478664 K21.9 Health Concerns Section Related Observation LastModified by Organization Detai ls LastModified Time None Recorded Concern Status LastModified by Organization Details LastModified Time None Recorded Advance Directives Directive N: Payers Encounter Date Sequence Insurance Name Policy Number Policy Huitron Covered Member ID Huitron Member ID Guarantor Name 11/20/2023 2 [place] Renetta L Celia [id number] Renetta L Celia 11/20/2023 1 [place] [id number] Brian E Celia [id number] Renetta L Celia 04/08/2024 2 [place] Renetta L Celia [id number] Renetta L Celia 04/08/2024 1 [place] [id number] Brian E Celia [id number] Renetta L Celia 05/18/2024 2 [place] Renetta L Celia [id number] Renetta L Celia 05/18/2024 1 [place] [id number] Brian E Celia [id number] Renetta L Celia 09/21/2024 2 [place] Renetta L Celia [id number] Renetta L Celia 09/21/2024 1 [place] [id number] Brian E Celia [id number] Renetta L Celia Notes Date Note Type Note Provider Name and Address Organization Details Recorded Time 11/20/2023 text/html Stress of yolanda monsivais with her ailing mother hypertension conservative measures she was going to continue hyperlipidemia try to follow low-fat diet GERD has been doing fine Julieta Goel MD Attn: Accounting,[address], [place], [address], [place] [facility] 11/20/2023 21:08:37 04/08/2024 text/html abdominal pain a nd nausea went to the emergency room with workup was unrevealing except for possibly some enterocolitis seen on CT scan she still has her symptoms was not really discharged on anything Julieta Goel MD Attn: Accounting,[address] [facility], [place], [address], [facility] - [facility] 04/17/2024 15:33:41 05/18/2024 text/html finally her abdominal discomfort that is all GERD or nausea and vomiting hyperlipidemia she is trying to take a good stance on healthy diet hypertension no headache no dizziness Julieta Goel MD Attn: Accounting, [address] [facility], [place], [address], [facility] - [facility] 05/18/2024 23:06:59 09/21/2024 text/html hypertension not controlled dyslipidemia taking atorvastatin needs a refill GERD controlled on omeprazole 3rd toe right foot redness at the nailbed for a few days Julieta Goel MD Attn: Accounting,[address] [facility], [place], [address], [facility] - [facility] 09/26/2024 19:52:16 OBGyn Episode No OBEpisode recorded.
--- OUTSIDE RECORDS SUMMARY | 2024-12-20 14:01 | XMS_ITS | CONTINUITY OF CARE DOCUMENT ---
Author Name isaac gray Address Unknown Organization [facility] Address [address] [place] [address] Phone [phone] Care Team Providers Care Auto Body Technician Name Role Phone Ramirez ESPOSITO, Herson Unavailable [phone] FELICIANO PUENTES MD Unavailable Unavailabl e ELLIOTT [employer] SUPPORT SPECIALIST, SAUNDRA Unavailable PROBLEMS Condition Status Date Provider Notes SHORTNESS OF BREATH active Beto leo MD ATRIAL FIB, PAROXYSMAL s/p a blation 07/2013 active Herson Guzmán MD PALPITATIONS active ? Herson Guzmán MD TOBACCO ABUSE--Quit 2012 active Herson kincaid MD CHEST PAIN-10/14 NUC NEG active ? Herson Guzmán MD HTN ESSENTIAL-10/14 ECHO EF 6 5 SLIGHT STINSON DYS active ? Jacob Cash RN ENCOUNTERS Date Type Provider Location Encounter Diagnosis - In-person encounter Office Visit Herson Guzmán MD [facility] - In-person encounter Office Visit Herson Guzmán MD [facility] TOBACCO ABUSE--Quit 2013ATRIAL FIB, PAROXYSMAL s/p ablation 07/2013 - In-person encounter Office Visit Herson Guzmán MD [facility] - In-person encounter Office Visit Herson Guzmán MD [facility] - In-person encounter Office Visit Beto Hutchinson MD [facility] - In-person encounter Office Visit Beto Hutchinson MD [facility] - In-person encounter Office Visit Beto Hutchinson MD [facility] SHORTNESS OF BREATH - In-person encounter Office Visit Herson Guzmán MD [facility] - In-person encounter Office Visit Herson Guzmán MD [facility] Office ATRIAL FIB, PAROXYSMAL s/p ablation 07/2013 - In-person encounter Office Visit Herson Guzmán MD [facility] HTN ESSENTIAL-10/14 ECHO EF 65 SLIGHT STINSON DYSCHEST PAIN-10/14 NUC NEGTOBACCO ABUSE--Quit 2012PALPITATIONS VITAL SIGNS Date Observation Value Provider blood pressure, diastolic 79 mm[Hg] Fl farhad Henson blood pressure, systolic 141 mm[Hg[facility] pulse [facility] 96 /min Kiarra Henson oxygen saturation, oximetry 97 % Kiarra Henson respiratory rate E&M 15 /min Kiarra Henson Body Mass Index (Ratio) 26.78 kg/m2 [facility] weight E&M 171 [lb_av] Kiarra Henson blood pressure, diastolic 72 mm[Hg] Us cee Guzmán MD blood pressure, systolic 130 mm[Hg] m john Guzmán MD Body Mass Index (Ratio) 2.51 kg/m2 [facility] pulse rate 88 /min Kiarra Henson oxygen [...] ssa Henson blood pressure, diastolic 75 mm[Hg] Fl farhad Henson blood pressure, systolic 141 mm[Hg] Linda chicasa Henson pulse rate 100 /min Kiarra [facility] oxygen saturation, oximetry 98 % Kiarra Henson respiratory rate E&M 14 /min Kiarra [facility] weight E&M 170 [lb_av] Kiarra Henson Body Mass Index (Ratio) 27.83 kg/m2 Adam thalia Green blood pressure, diastolic 80 mm[Hg] De nyeajohn Green blood pressure, systolic 144 mm[Hg] Den armani Green pulse rate 16 /min Sarkisyejohn Green oxygen saturation, oximetry 97 % Issa [...] Zhang RN international normalized ratio (INR) 1.0 [facility] blood glucose, fasting 99 mg/dL [facility] creatinine, serum 0.90 mg/dL [facility] urea nitrogen, blood 21 mg/dL [facility] carbon dioxide, serum, total 31 mmol/L [facility] chloride, serum 102 mmol/L [facility] potassium, serum 4.2 mmol/L [facility] sodium, serum 143 mmol/L [facility] platelet count 375 10*3/uL [facility] hematocrit, blood 36.8 % [facility] hemoglobin, blood 11.9 g/dL [facility] erythrocyte (RBC) count 4.08 10*6/mm3 [facility] leukocyte count, blood 8.2 10*3/mm3 [facility] international normalized ratio (INR) 0.9 Charito Knott [...] Herson Guzmán MD VITAMIN D (ERGOCALCIFEROL ) [id number] UNIT ORAL CAPSULE completed take one pill [...] Wed and Fri take 1 tab - Bteo Hutchinson MD B COMPLEX ORAL CAPSULE completed [...] ORAL CAPSULE completed ONE TAB. DAILY - Kairra Henson B-12 100 MCG ORAL TABLET completed [...] Guzmán MD alcohol counseling no [facility] In the [facility] 3 [facility] , have [...] averag e drinks per day yes Kiarra Hesnon drug use no Kiarra Henson passive cigarette sm tej exposure yes Kiarra Hensno smoking/tobacco cess ation, patient education and counseling [...] Henson smoking, year quit 2012 [facility], date started 1970 Susan zapata Henson [...] stop using drugs?(CAGE substance use question #1) John Green drug use no Issa Green smoking [...] Payer name Policy type / Coverage type [place] red republican ID [facility] [id number] TREATMENT PLAN Date Name Performer CPOE A&P:BP: [...] the medication list: Rythmol Sr 325 Mg [id number] (Propafenone hcl) ..... One tablet a day [...] is 81% which is within normal limits.- [facility] (10/28/2012) Herson Guzmán MD routine Herson Guzmán [...] ..... One daily Rythmol Sr 325 Mg [id number]-jnc (Propafenone hcl) ..... 1 tab po bid BP today: / Prior BP: 112/71 (11/10/2012) N uclear Stress Findings: No scintigraphic evidence of stress induced ischemia or wall motion abnormality. Left ventricular ejection fraction is 81% which is within normal limits.- [facility] (10/28/2012) Herson Guzmán MD routine: T he following medications were removed from the medication list: Flecainide Acetate 100 Mg Tabs (Flecainide acetate) ..... 1 tab po bid Her updated medication list for this problem includes: Aspirin 325 Mg Tabs (Aspirin) ..... One tab. daily Rythmol Sr 325 Mg [id number] (Propafenone hcl) ..... 1 tab po bid BP today: / Prior BP: 112/71 (11/10/2012) N uclear Stress Findings: No scintigraphic evidence of stress induced ischemia or wall motion abnormality. Left ventricular ejection fraction is 81% which is within normal limits.- [facility] (10/28/2012) Herson Guzmán MD follow up:112/71 H [...] Name Provider Procedure Notes S kristopherus SNOMED-CT: 422406439 Smoking Cessation Counseling Herson Guzmán MD completed SNOMED-CT: 406866168923630 Current Medications Documented Herson Guzmán MD completed [...]
--- OUTSIDE RECORDS SUMMARY | 2024-12-20 14:01 | XMS_ITS | Clinical Summary ---
Author Organization [facility] Address [facility]ly [facility] [place] [address] Care Team Providers Care Bottling Equipment Sales Representative Name Role Phone Mark Goel MD Primary Care Provider [phone] Chaparro Reed MD Unavailable [phone] Allergies Active Allergy Reactions Criticality Noted Date [...] 08/05/2021 Assessment & Plan (08/05/2021 4:24 PM BACKEND TESTER): - will discuss at next visit Gastroesophageal reflux disease 08/03/2021 Overview (08/03/2021): Added automatically from request for surgery [id number] Assessment & Plan (08/05/2021 4:23 PM BACKEND TESTER): - discussed with Ms. 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 08/05/2021 Diverticulitis 06/01/2015 08/05/2021 Surgical History Surgery Date Site/Laterality Comments [place] LIG/TRNSXJ FLP TUBE ABDL/VAG APPR UNI/BI Tubal Ligation - (Added by TW Conv) [place] TOTAL ABDOMINAL HYSTERECT W/WO RMVL TUBE OVARY Hysterectomy - (Added by TW Conv) TOTAL ABDOMINAL HYSTERECTOMY Total Abdominal Hysterectomy With Removal Of Both Ovaries - (Added by TW Conv) [place] LAMNOTMY INCL W/DCMPRSN NRV ROOT 1 INTRSPC CERVC Hemilaminectomy With Disc Removal One Cervical Interspace - 2 disks removed (Added by TW Conv) [place] THORACOPLASTY SCHEDE TYPE/EXTRAPLEURAL Thoracoplasty - left (Added by TW Conv) [place] APPENDECTOMY Appendectomy - (Added by TW Conv) [...] on file Legal Sex Female 3:17 AM BACKEND TESTER Gender Identity Female 04/16/2021 9:34 PM CDT Sexual Orientation Straight 04/16/2021 9: 34 PM CDT 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 Not on file [...] 03/25/2022, 05/12/2015 Medical Devices Implanted Type Area Wood Dowel Machine Operator Device Identifier Shelf Expiration Date Model / Serial / Lot Meagan Ortega/C R [id number] Bard [id number] Monofilament Soft Lightweight Low Profile Square - [id number] Implanted:Qty: 1 on 02/17/2019 by Charity Henry MD at [facility] Abdom[facility] [employer]/C R [place] [id number] 09/28/2023 [id number] / / [id number] Procedures Procedure Name Priority Date/Time Associated Diagnosis Comments COLONOSCOPY 03/25/2022 8:25 AM CDT DEXA AXIAL SKELETON BONE DENSITY 1 OR MORE SITES Schedule Routine, Read Routine (OP Routine) 07/11/2021 1:23 PM BACKEND TESTER Age-related osteoporosis without current pathological fracture Difficulty [...] Attending MD: Fiona Sharpe M.D. Room: [facility] ENDOSCOPY ROOM 3 Note Status: Finalized [...] The scope was passed under direct vision.The [id number] endoscope was introduced through the anus and advanced to the terminal ileum. The colonoscopy was performed without difficulty. The patient tolerated the procedure well. The qualityof the bowel preparation was evaluated using the BBPS ([place] Bowel Preparation Scale) with scores of:Right Colon [...] On: 03/25/2022 8:25 AM Recognized by the [place] [employer] for promoting quality in endoscopy us Fiona Sharpe MD ENDOSCOPY PROCEDURES Final Res ult * Dexa Axial Skeleton Bone Density 1 or 2 Site (07/11/2021 1:23 PM BACKEND TESTER) Anatomical Region Laterality Modality Body N/A Radiographic Brittney ging Narrative 07/11/2021 2:32 PM BACKEND TESTER Patient Name: Renetta Yang Date of : 1955 Date of scan: 07/11/2021 Bone mineral density was performed on a HoloSunshine Discovery Densitometer. Based on machine cross-calibration and [...] by the International Society of Clinical Densitometry. [id number] us Michelle Cummings MD IMG DXA PROCEDURES Final Re sult from Last 3 Months or Most Recently Relevant to Health Maintenance Insurance MEDICARE [facility] Address: [address] [address] [place] [address] [employer] [facility] MEDICARE [facility] Address: [address] [address] [place] [address] BLUE ACCESS [facility] MEDICARE MEDICARE [facility] MEDICARE BLUE ACCESS CHOICE [place] Advance Directives For more information, please contact: [phone] * Full Code (Latest Code Status on File) Date Activated Date Inactivated Comments 08/13/2021 12:34 PM 08/13/2021 5:48 PM * Full Code Date Activated Date Inactivated Comments 02/17/2019 5:30 PM 02/21/2019 5:22 PM Care Teams Bottling Equipment Sales Representative Relationship Specialty Start Date End Date Mark Goel MD PCP - General Internal Medicine 12/07/18 Chaparro Reed MD Referring Physician Gastroenterology 12/31/18
--- OUTSIDE RECORDS SUMMARY | 2024-12-20 14:01 | XMS_ITS | Continuity of Care Document ---
Author Organization [facility] Address [address] [place] [address] [place] [address] Phone Care Team Providers Care Agent Producer Name Role Phone Radhames Schwarz MD Unavailable Unavailable Advance Directives Directive Yes / No Effective Date File Name No Information Encounters Encounter Description Practice Location Reason(s) For Visit Diagnoses Date Provider Providers Copied on Encounter [facility], [address], [place], [place], [id number], [place] tel:[phone] [facility] No Information [address] Chong Ricci. [address] [facility] [address], [place], [place], [id number], [place]. tel:[phone] Family History Family Member Type Diagnosis Age At Onset No Information Payers Payer name Insurance type Covered republican ID Authoriza tion(s) No Information Social History [...]
--- OUTSIDE RECORDS SUMMARY | 2025-03-29 09:54 | XMS_ITS | Continuity of Care Document ---
Author Organization [facility] Address [address] [place] [address] Phone Care Team Providers Care Revenue Stamp Cutter Name Role Phone Radhames Schwarz MD Unavailable Unavailable Advance Directives Directive Yes / No Effective Date File Name No Information Encounters Encounter Description Practice Location Reason(s) For Visit Diagnoses Date Provider Providers Copied on Encounter [facility], [address], [place], [place], [id number], [place] tel:[phone] [facility] No Information [address] Ricci. [address] [facility] [place] [address], [place], [place], [id number], [place]. tel:[phone] Family History Family Member Type Diagnosis Age At Onset No Information Payers Payer name Insurance type Covered green party ID Authoriza tion(s) No Information Social History [...]
--- OUTSIDE RECORDS SUMMARY | 2025-03-29 09:54 | XMS_ITS | Encounter Summary ---
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
--- OUTSIDE RECORDS SUMMARY | 2025-03-29 09:54 | XMS_ITS | Data Portability ---
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 Follow-up with me in 6 Not available 11/20/2023 21:07:51 04/08/2024 04/08/2024 soft diet CBC CMP lipase Zofran Flagyl call in 3 days with update obtain ER records [email or web address] Not available 04/17/2024 15:33:25 05/18/2024 05/18/2024 we will continue current therapies and healthy lifestyle care instructions discussed follow up with me in 4 months. [email or web address] Not available 05/18/2024 23:06:36 09/21/2024 09/21/2024 hypertension uncontrolled add amlodipine 5 mg daily GERD conservative measures and omeprazole. Cellulitis toe doxycycline. Flu shot. Healthy lifestyle care instructions. Continue current therapy. Four month follow up. But she will come get a blood pressure checked in a week or 2 [email or web address] Not available 09/26/2024 19:51:29 Plan of Treatment Reminders Order Date Submit Date Provider Last Modified By Organization Details Last Modified Time Details Appointments ANY 15 2024 01:15P Sary Goel MD Not available Not available Not available Lab CMP, serum or plasma 2024 025 KENDALL Windy, [address], [address], [place], [address], 09/22/2024 08:24:24 CBC w/ auto diff 2024 025 KENDALL Labollie, 2022 [address], [address], [place], [address], 09/22/2024 08:24:26 lipid panel, serum 2024 025 KENDALL Labollie, 2022 [address], [address], [place], [address], 09/22/2024 08:24:23 CBC w/ auto diff 2023 024 KENDALLCLIFFORD Temple, 2022 [address]ain[address], [address], [place], [address], 04/09/2024 08:26:22 CMP, serum or plasma 2023 024 KENDALLCLIFFORD Temple, 2022 [address], [address], [place], [address], 04/09/2024 08:26:21 lipase, serum or plasma 2023 024 KENDALLCLIFFORD Temple, 2022 [address], [address], [place], [address], 04/09/2024 08:26:22 CMP, serum or plasma 2023 024 KENDALLCLIFFORD Temple, 2022 [address], [address], [place], [address], 11/21/2023 07:15:54 CBC w/ auto diff 2023 024 KENDALLCLIFFORD Temple, 2022 [address]ain[address], [address], [place], [address], 11/21/2023 07:15:54 lipid panel, serum 2023 024 [facility] [address], [address] [address], [place], [address], 11/21/2023 07:15:53 Referral None recorded. Procedures None recorded. Surgeries None recorded. Imaging None recorded. Medication Orders doxycycli ne hyclate [address] capsule [address] [facility] #[id number], [address], [place], [place], [id number], 03/23/2025 13:29:11 amlodipin e 5 mg tablet 2024 025 [email or web address] [facility] #[id number], [address], [place], [place], [id number], 09/21/2024 15:27:02 atorvasta tin 10 mg tablet [address] [facility] #[id number], [address], [place], [place], [id number], 03/23/2025 13:31:28 Zofran 4 mg tablet [address] [facility] #[id number], [address], [place], [place], [id number], 05/18/2024 15:09:44 Flagyl 500 mg tablet 2023 024 [email or web address] #[id number], [address], [place], [place], [id number], 05/18/2024 15:10:41 Patient TargetsNo targets recorded. Patient Instructions Encounter Date Encounter Id Patient Instructions Last Modified By Organization Details Last Modified Time 05/18/2024 [id number] A healthy lifestyle: care instructions [email or web address] Not available 05/18/2024 23:06:57 09/21/2024 [id number] A healthy lifestyle: care instructions [email or web address] Not available 09/21/2024 15:27:02 Reason for Referral None Reported. Results Created Date Observation Date Name Description Value Unit Range Abnormal Flag Note LastModifiedBy Organization Detail LastModifiedTime 11/20/19 24 11/21/2023 LIPID PANEL cholesterol, total 227 mg/dL 100-19 9 above high normal Not Available [facility] ([facility]) [address] [place], [address], 11/21/2023 07:15:53 11/20/19 24 11/21/2023 LIPID PANEL triglyceride s 314 mg/dL 0-149 above high normal Not Available [facility] ([facility]) [address] [place], [address], 11/21/2023 07:15:53 11/20/19 24 11/21/2023 LIPID PANEL HDL cholesterol 44 mg/dL >39 Not Available [facility]) [address] [place], [address], 11/21/2023 07:15:53 11/20/19 24 11/21/2023 LIPID PANEL VLDL cholesterol chetan 56 mg/dL 5-40 above high normal Not Available [facility] ([facility]) [address] [place], [address], 11/21/2023 07:15:53 11/20/19 24 11/21/2023 LIPID PANEL LDL chol calc ([facility]) 127 mg/dL 0-99 above high normal Not Available [facility] ([facility]) [address] [place], [address], 11/21/2023 07:15:53 11/20/19 24 11/21/2023 CMP14 glucose 131 mg/dL 70-99 above high normal Not Available [facility] ([facility]) [address] [place], [address], 11/21/2023 07:15:54 11/20/19 24 11/21/2023 CMP14 BUN 11 mg/dL 8-27 Not Available [facility] ([facility]) [address] [facility] [place], [address], 11/21/2023 07:15:54 11/20/19 24 11/21/2023 CMP14 creatinine 0.81 mg/dL 0.57-1 .00 Not Available [facility] ([facility]) [address] [facility], [place], [address], 11/21/2023 07:15:54 11/20/19 24 11/21/2023 CMP14 eGFR 79 mL/mi n/1.7 3 >59 Not Available [facility] ([facility]) [address] [facility], [place], [address], 11/21/2023 07:15:54 11/20/19 24 11/21/2023 CMP14 sodium 141 mmol/ L 134-14 4 Not Available [facility] ([facility]) [address] [facility], [place], [address], 11/21/2023 07:15:54 11/20/19 24 11/21/2023 CMP14 potassium 3.7 mmol/ L 3.5-5. 2 Not Available [facility] ([facility]) [address] [facility], [place], [address], 11/21/2023 07:15:54 11/20/19 24 11/21/2023 CMP14 chloride 99 mmol/ L 96-106 Not Available [facility] ([facility]) [address] [facility], [place], [address], 11/21/2023 07:15:54 11/20/19 24 11/21/2023 CMP14 carbon dioxide, total 26 mmol/ L 20-29 Not Available [facility] ([facility]) [address] [facility], [place], [address], 11/21/2023 07:15:54 11/20/19 24 11/21/2023 CMP14 calcium 9.0 mg/dL 8.7-10 .3 Not Available [facility] ([facility]) [address] [place], [address], 11/21/2023 07:15:54 11/20/19 24 11/21/2023 CMP14 protein, total 6.6 g/dL 6.0-8. 5 Not Available [facility] ([facility]) [address] [place], [address], 11/21/2023 07:15:54 11/20/19 24 11/21/2023 CMP14 albumin 4.0 g/dL 3.9-4. 9 Not Available [facility] ([facility]) [address] [place], [address], 11/21/2023 07:15:54 11/20/19 24 11/21/2023 CMP14 globulin, total 2.6 g/dL 1.5-4. 5 Not Available [facility] ([facility]) [address] [place], [address], 11/21/2023 07:15:54 11/20/19 24 11/21/2023 CMP14 A/G ratio 1.5 1.2-2. 2 Not Available [facility] ([facility]) [address] [place], [address], 11/21/2023 07:15:54 11/20/19 24 11/21/2023 CMP14 bilirubin, total 0.3 mg/dL 0.0-1. 2 Not Available [facility] ([facility]) [address] [place], [address], 11/21/2023 07:15:54 11/20/19 24 11/21/2023 CMP14 alkaline phosphatase 114 IU/L 44-121 Not Available [facility] [address] [place], [address], 11/21/2023 07:15:54 11/20/19 24 11/21/2023 CMP14 AST (SGOT) 32 IU/L 0-40 Not Avail able [facility] ([facility]) [address] [facility] [place], [address], 11/21/2023 07:15:54 11/20/19 24 11/21/2023 CMP14 ALT (SGPT) 33 IU/L 0-32 above high normal Not Available [facility] ([facility]) [address] [facility], [place], [address], 11/21/2023 07:15:54 11/20/19 24 11/21/2023 CBC WITH DIFFE RENTI AL/PL ATELE T WBC 8.7 x10e3 /uL 3.4-10 .8 Not Available [facility] ([facility]) [address] [facility], [place], [address], 11/21/2023 07:15:54 11/20/19 24 11/21/2023 CBC WITH DIFFE RENTI AL/PL ATELE T RBC 4.29 x10e6 /uL 3.77-5 .28 Not Available [facility] ([facility]) [address] [facility], [place], [address], 11/21/2023 07:15:54 11/20/19 24 11/21/2023 CBC WITH DIFFE RENTI AL/PL ATELE T hemoglobin 12.5 g/dL 11.1-1 5.9 Not Available [facility] ([facility]) [address] [place], [address], 11/21/2023 07:15:54 11/20/19 24 11/21/2023 CBC WITH DIFFE RENTI AL/PL ATELE T hematocrit 37.7 % 34.0-4 6.6 Not Available [facility] ([facility]) [address] [place], [address], 11/21/2023 07:15:54 11/20/19 24 11/21/2023 CBC WITH DIFFE RENTI AL/PL ATELE T MCV 88 fL 79-97 Not Available [facility] ([facility]) [address] [facility], [place], [address], 11/21/2023 07:15:54 11/20/19 24 11/21/2023 CBC WITH DIFFE RENTI AL/PL ATELE T MCH 29.1 pg 26.6-3 3.0 Not Available [facility] ([facility]) [address] [facility], [place], [address], 11/21/2023 07:15:54 11/20/19 24 11/21/2023 CBC WITH DIFFE RENTI AL/PL ATELE T MCHC 33.2 g/dL 31.5-3 5.7 Not Available [facility] ([facility]) [address] [place], [address], 11/21/2023 07:15:54 11/20/19 24 11/21/2023 CBC WITH DIFFE RENTI AL/PL ATELE T RDW 14.6 % 11.7-1 5.4 Not Available [facility] ([facility]) [address] [place], [address], 11/21/2023 07:15:54 11/20/19 24 11/21/2023 CBC WITH DIFFE RENTI AL/PL ATELE T platelets 274 x10e3 /uL 150-45 0 Not Available [facility] ([facility]) [address] [place], [address], 11/21/2023 07:15:54 11/20/19 24 11/21/2023 CBC WITH DIFFE RENTI AL/PL ATELE T neutrophils 71 % notest ab. Not Available [facility] ([facility]) [address] [place], [address], 11/21/2023 07:15:54 11/20/19 24 11/21/2023 CBC WITH DIFFE RENTI AL/PL ATELE T lymphs 17 % notest ab. Not Available [facility] ([facility]) [address] [place], [address], 11/21/2023 07:15:54 11/20/19 24 11/21/2023 CBC WITH DIFFE RENTI AL/PL ATELE T monocytes 9 % notest ab. Not Available [facility] ([facility]) [address] [facility], [place], [address], 11/21/2023 07:15:54 11/20/19 24 11/21/2023 CBC WITH DIFFE RENTI AL/PL ATELE T eos 2 % notest ab. Not Available [facility] ([facility]) [address] [facility], [place], [address], 11/21/2023 07:15:54 11/20/19 24 11/21/2023 CBC WITH DIFFE RENTI AL/PL ATELE T basos 0 % notest ab. Not Available [facility] ([facility]) [address] [place], [address], 11/21/2023 07:15:54 11/20/19 24 11/21/2023 CBC WITH DIFFE RENTI AL/PL ATELE T neutrophils (absolute) 6.1 x10e3 /uL 1.4-7. 0 Not Available [facility] ([facility]) [address] [place], [address], 11/21/2023 07:15:54 11/20/19 24 11/21/2023 CBC WITH DIFFE RENTI AL/PL ATELE T lymphs (absolute) 1.5 x10e3 /uL 0.7-3. 1 Not Available [facility] ([facility]) [address] [place], [address], 11/21/2023 07:15:54 11/20/19 24 11/21/2023 CBC WITH DIFFE RENTI AL/PL ATELE T monocytes(ab solute) 0.8 x10e3 /uL 0.1-0. 9 Not Available [facility] ([facility]) [address] [place], [address], 11/21/2023 07:15:54 11/20/19 24 11/21/2023 CBC WITH DIFFE RENTI AL/PL ATELE T eos (absolute) 0.2 x10e3 /uL 0.0-0. 4 Not Available [facility] ([facility]) [address] [place], [address], 11/21/2023 07:15:54 11/20/19 24 11/21/2023 CBC WITH DIFFE RENTI AL/PL ATELE T baso (absolute) 0.0 x10e3 /uL 0.0-0. 2 Not Available [facility] ([facility]) [address] [place], [address], 11/21/2023 07:15:54 11/20/19 24 11/21/2023 CBC WITH DIFFE RENTI AL/PL ATELE T immature granulocytes 1 % notest ab. Not Available [facility] ([facility]) [address] [facility], [place], [address], 11/21/2023 07:15:54 11/20/19 24 11/21/2023 CBC WITH DIFFE RENTI AL/PL ATELE T immature grans (abs) 0.1 x10e3 /uL 0.0-0. 1 Not Available [facility] ([facility]) [address] [place], [address], 11/21/2023 07:15:54 12/11/19 24 12/12/2023 HEMOG LOBIN A1C hemoglobin A1C 7.2 % 4.8-5. 6 above high normal Predi abete s: 5.7 - 6.4 Diabe joana: >6.4 Glyce golden contr ol for adult s with diabe joana: <7.0 Not Available [facility] ([facility]) [address] [place], [address], 12/12/2023 03:37:09 04/08/20 24 04/09/2024 COMP. METAB OLIC PANEL (14) glucose 173 mg/dL 70-99 above high normal Not Available [facility] ([facility]) [address] [facility] [place], [address], 04/09/2024 08:26:21 04/08/20 24 04/09/2024 COMP. METAB OLIC PANEL (14) BUN 21 mg/dL 8-27 Not Available [facility] ([facility]) [address] [place], [address], 04/09/2024 08:26:21 04/08/20 24 04/09/2024 COMP. METAB OLIC PANEL (14) creatinine 0.86 mg/dL 0.57-1 .00 Not Available [facility] ([facility]) [address] [place], [address], 04/09/2024 08:26:21 04/08/20 24 04/09/2024 COMP. METAB OLIC PANEL (14) eGFR 73 mL/mi n/1.7 3 >59 Not Available [facility] ([facility]) [address] [facility], [place], [address], 04/09/2024 08:26:21 04/08/20 24 04/09/2024 COMP. METAB OLIC PANEL (14) BUN/creatini ne ratio 24 -28 Not Available [facility] ([facility]) [address] [facility] [place], [address], 04/09/2024 08:26:21 04/08/20 24 04/09/2024 COMP. METAB OLIC PANEL (14) sodium 136 mmol/ L 134-14 4 Not Available [facility] ([facility]) [address] [place] [place], [address], 04/09/2024 08:26:21 04/08/20 24 04/09/2024 COMP. METAB OLIC PANEL (14) potassium 3.9 mmol/ L 3.5-5. 2 Not Available [facility] ([facility]) [address] [facility] [place], [address], 04/09/2024 08:26:21 04/08/20 24 04/09/2024 COMP. METAB OLIC PANEL (14) chloride 97 mmol/ L 96-106 Not Available [facility] ([facility]) [address] [place], [address], 04/09/2024 08:26:21 04/08/20 24 04/09/2024 COMP. METAB OLIC PANEL (14) carbon dioxide, total 22 mmol/ L 20-29 Not Available [facility] ([facility]) [address] [place], [address], 04/09/2024 08:26:21 04/08/20 24 04/09/2024 COMP. METAB OLIC PANEL (14) calcium 10.2 mg/dL 8.7-10 .3 Not Available [facility] ([facility]) [address] [facility] [place], [address], 04/09/2024 08:26:21 04/08/20 24 04/09/2024 COMP. METAB OLIC PANEL (14) protein, total 6.7 g/dL 6.0-8. 5 Not Available [facility] ([facility]) [address] [place], [address], 04/09/2024 08:26:21 04/08/20 24 04/09/2024 COMP. METAB OLIC PANEL (14) albumin 4.2 g/dL 3.9-4. 9 Not Available [facility] ([facility]) [address] [place] [place], [address], 04/09/2024 08:26:21 04/08/20 24 04/09/2024 COMP. METAB OLIC PANEL (14) globulin, total 2.5 g/dL 1.5-4. 5 Not Available [facility] ([facility]) [address] [facility], [place], [address], 04/09/2024 08:26:21 04/08/20 24 04/09/2024 COMP. METAB OLIC PANEL (14) bilirubin, total 0.4 mg/dL 0.0-1. 2 Not Available [facility] ([facility]) [address] [facility], [place], [address], 04/09/2024 08:26:21 04/08/20 24 04/09/2024 COMP. METAB OLIC PANEL (14) alkaline phosphatase 122 IU/L 44-121 above high normal Not Available [facility] ([facility]) [address] [facility], [place], [address], 04/09/2024 08:26:21 04/08/20 24 04/09/2024 COMP. METAB OLIC PANEL (14) AST (SGOT) 46 IU/L 0-40 above high normal Not Available [facility] ([facility]) [address] [facility], [place], [address], 04/09/2024 08:26:21 04/08/20 24 04/09/2024 COMP. METAB OLIC PANEL (14) ALT (SGPT) 38 IU/L 0-32 above high normal Not Available [facility] ([facility]) [address] [facility], [place], [address], 04/09/2024 08:26:21 04/08/20 24 04/09/2024 LIPAS E lipase 38 U/L 14-72 Not Available [facility] ([facility]) [address] [place], [address], 04/09/2024 08:26:22 04/08/20 24 04/09/2024 CBC WITH DIFFE RENTI AL/PL ATELE T WBC 7.4 x10e3 /uL 3.4-10 .8 Not Available [facility] ([facility]) [address] [facility], [place], [address], 04/09/2024 08:26:22 04/08/20 24 04/09/2024 CBC WITH DIFFE RENTI AL/PL ATELE T RBC 4.48 x10e6 /uL 3.77-5 .28 Not Available [facility] ([facility]) [address] [facility], [place], [address], 04/09/2024 08:26:22 04/08/20 24 04/09/2024 CBC WITH DIFFE RENTI AL/PL ATELE T hemoglobin 13.1 g/dL 11.1-1 5.9 Not Available [facility] ([facility]) [address] [facility], [place], [address], 04/09/2024 08:26:22 04/08/20 24 04/09/2024 CBC WITH DIFFE RENTI AL/PL ATELE T hematocrit 40.3 % 34.0-4 6.6 Not Available [facility] ([facility]) [address] [facility], [place], [address], 04/09/2024 08:26:22 04/08/20 24 04/09/2024 CBC WITH DIFFE RENTI AL/PL ATELE T MCV 90 fL 79-97 Not Available [facility] ([facility]) [address] [place], [address], 04/09/2024 08:26:22 04/08/20 24 04/09/2024 CBC WITH DIFFE RENTI AL/PL ATELE T MCH 29.2 pg 26.6-3 3.0 Not Available [facility] ([facility]) [address] [place], [address], 04/09/2024 08:26:22 04/08/20 24 04/09/2024 CBC WITH DIFFE RENTI AL/PL ATELE T MCHC 32.5 g/dL 31.5-3 5.7 Not Available [facility] ([facility]) [address] [facility], [place], [address], 04/09/2024 08:26:22 04/08/20 24 04/09/2024 CBC WITH DIFFE RENTI AL/PL ATELE T RDW 14.6 % 11.7-1 5.4 Not Available [facility] ([facility]) [address] [facility], [place], [address], 04/09/2024 08:26:22 04/08/20 24 04/09/2024 CBC WITH DIFFE RENTI AL/PL ATELE T platelets 295 x10e3 /uL 150-45 0 Not Available [facility] ([facility]) [address] [facility], [place], [address], 04/09/2024 08:26:22 04/08/20 24 04/09/2024 CBC WITH DIFFE RENTI AL/PL ATELE T neutrophils 66 % notest ab. Not Available [facility] ([facility]) [address] [facility], [place], [address], 04/09/2024 08:26:22 04/08/20 24 04/09/2024 CBC WITH DIFFE RENTI AL/PL ATELE T lymphs 22 % notest ab. Not Available [facility] ([facility]) [address] [facility], [place], [address], 04/09/2024 08:26:22 04/08/20 24 04/09/2024 CBC WITH DIFFE RENTI AL/PL ATELE T monocytes 9 % notest ab. Not Available [facility] ([facility]) [address] [facility], [place], [address], 04/09/2024 08:26:22 04/08/20 24 04/09/2024 CBC WITH DIFFE RENTI AL/PL ATELE T eos 3 % notest ab. Not Available [facility] ([facility]) [address] [facility], [place], [address], 04/09/2024 08:26:22 04/08/20 24 04/09/2024 CBC WITH DIFFE RENTI AL/PL ATELE T basos 0 % notest ab. Not Available [facility] ([facility]) [address] [facility], [place], [address], 04/09/2024 08:26:22 04/08/20 24 04/09/2024 CBC WITH DIFFE RENTI AL/PL ATELE T neutrophils (absolute) 4.9 x10e3 /uL 1.4-7. 0 Not Available [facility] ([facility]) [address] [facility], [place], [address], 04/09/2024 08:26:22 04/08/20 24 04/09/2024 CBC WITH DIFFE RENTI AL/PL ATELE T lymphs (absolute) 1.6 x10e3 /uL 0.7-3. 1 Not Available [facility] ([facility]) [address] [facility], [place], [address], 04/09/2024 08:26:22 04/08/20 24 04/09/2024 CBC WITH DIFFE RENTI AL/PL ATELE T monocytes(ab solute) 0.6 x10e3 /uL 0.1-0. 9 Not Available [facility] ([facility]) [address] [facility], [place], [address], 04/09/2024 08:26:22 04/08/20 24 04/09/2024 CBC WITH DIFFE RENTI AL/PL ATELE T eos (absolute) 0.2 x10e3 /uL 0.0-0. 4 Not Available [facility] ([facility]) [address] [facility], [place], [address], 04/09/2024 08:26:22 04/08/20 24 04/09/2024 CBC WITH DIFFE RENTI AL/PL ATELE T baso (absolute) 0.0 x10e3 /uL 0.0-0. 2 Not Available [facility] ([facility]) [address] [facility], [place], [address], 04/09/2024 08:26:22 04/08/20 24 04/09/2024 CBC WITH DIFFE RENTI AL/PL ATELE T immature granulocytes 0 % notest ab. Not Available [facility] ([facility]) [address] [facility], [place], [address], 04/09/2024 08:26:22 04/08/20 24 04/09/2024 CBC WITH DIFFE RENTI AL/PL ATELE T immature grans (abs) 0.0 x10e3 /uL 0.0-0. 1 Not Available [facility] ([facility]) [address] [facility], [place], [address], 04/09/2024 08:26:22 09/21/19 25 09/22/2024 LIPID PANEL cholesterol, total 220 mg/dL 100-19 9 above high normal Not Available [facility] ([facility]) [address] [facility], [place], [address], 09/22/2024 08:24:23 09/21/19 25 09/22/2024 LIPID PANEL triglyceride s 288 mg/dL 0-149 above high normal Not Available [facility] ([facility]) [address] [facility], [place], [address], 09/22/2024 08:24:23 09/21/19 25 09/22/2024 LIPID PANEL HDL cholesterol 47 mg/dL >39 Not Available [facility]) [address] [place], [address], 09/22/2024 08:24:23 09/21/19 25 09/22/2024 LIPID PANEL VLDL cholesterol chetan 51 mg/dL 5-40 above high normal Not Available [facility] ([facility]) [address] [place], [address], 09/22/2024 08:24:23 09/21/19 25 09/22/2024 LIPID PANEL LDL chol calc ([facility]) 122 mg/dL 0-99 above high normal Not Available [facility] ([facility]) [address] [place], [address], 09/22/2024 08:24:23 09/21/19 25 09/22/2024 COMP. METAB OLIC PANEL (14) glucose 166 mg/dL 70-99 above high normal Not Available [facility] ([facility]) [address] [place], [address], 09/22/2024 08:24:24 09/21/19 25 09/22/2024 COMP. METAB OLIC PANEL (14) BUN 12 mg/dL 8-27 Not Available [facility] ([facility]) [address] [place], [address], 09/22/2024 08:24:24 09/21/19 25 09/22/2024 COMP. METAB OLIC PANEL (14) creatinine 0.90 mg/dL 0.57-1 .00 Not Available [facility] ([facility]) [address] [place], [address], 09/22/2024 08:24:24 09/21/19 25 09/22/2024 COMP. METAB OLIC PANEL (14) eGFR 69 mL/mi n/1.7 3 >59 Not Available [facility] ([facility]) [address] [place], [address], 09/22/2024 08:24:24 09/21/19 25 09/22/2024 COMP. METAB OLIC PANEL (14) BUN/creatini ne ratio 13 12-28 Not Available [facility] ([facility]) [address] [place], [address], 09/22/2024 08:24:24 09/21/19 25 09/22/2024 COMP. METAB OLIC PANEL (14) sodium 140 mmol/ L 134-14 4 Not Available [facility] ([facility]) [address] [place], [address], 09/22/2024 08:24:24 09/21/19 25 09/22/2024 COMP. METAB OLIC PANEL (14) potassium 3.7 mmol/ L 3.5-5. 2 Not Available [facility] ([facility]) [address] [place], [address], 09/22/2024 08:24:24 09/21/19 25 09/22/2024 COMP. METAB OLIC PANEL (14) chloride 98 mmol/ L 96-106 Not Available [facility] ([facility]) [address] [place], [address], 09/22/2024 08:24:24 09/21/19 25 09/22/2024 COMP. METAB OLIC PANEL (14) carbon dioxide, total 28 mmol/ L 20-29 Not Available [facility] ([facility]) [address] [place], [address], 09/22/2024 08:24:24 09/21/19 25 09/22/2024 COMP. METAB OLIC PANEL (14) calcium 9.3 mg/dL 8.7-10 .3 Not Available [facility] ([facility]) [address] [place], [address], 09/22/2024 08:24:24 09/21/19 25 09/22/2024 COMP. METAB OLIC PANEL (14) protein, total 6.4 g/dL 6.0-8. 5 Not Available [facility] ([facility]) [address] [place], [address], 09/22/2024 08:24:24 09/21/19 25 09/22/2024 COMP. METAB OLIC PANEL (14) albumin 4.1 g/dL 3.9-4. 9 Not Available [facility] ([facility]) [address] [place], [address], 09/22/2024 08:24:24 09/21/19 25 09/22/2024 COMP. METAB OLIC PANEL (14) globulin, total 2.3 g/dL 1.5-4. 5 Not Available [facility] ([facility]) [address] [facility], [place], [address], 09/22/2024 08:24:24 09/21/19 25 09/22/2024 COMP. METAB OLIC PANEL (14) bilirubin, total 0.2 mg/dL 0.0-1. 2 Not Available [facility] ([facility]) [address] [facility], [place], [address], 09/22/2024 08:24:24 09/21/19 25 09/22/2024 COMP. METAB OLIC PANEL (14) alkaline phosphatase 104 IU/L 44-121 Not Available [facility] ([facility]) [address] [facility], [place], [address], 09/22/2024 08:24:24 09/21/19 25 09/22/2024 COMP. METAB OLIC PANEL (14) AST (SGOT) 50 IU/L 0-40 above high normal Not Available [facility] ([facility]) [address] [facility], [place], [address], 09/22/2024 08:24:24 09/21/19 25 09/22/2024 COMP. METAB OLIC PANEL (14) ALT (SGPT) 57 IU/L 0-32 above high normal Not Available [facility] ([facility]) [address] [facility], [place], [address], 09/22/2024 08:24:24 09/21/19 25 09/22/2024 CBC WITH DIFFE RENTI AL/PL ATELE T WBC 6.8 x10e3 /uL 3.4-10 .8 Not Available [facility] ([facility]) [address] [place], [address], 09/22/2024 08:24:26 09/21/19 25 09/22/2024 CBC WITH DIFFE RENTI AL/PL ATELE T RBC 4.20 x10e6 /uL 3.77-5 .28 Not Available [facility] ([facility]) [address] [facility], [place], [address], 09/22/2024 08:24:26 09/21/19 25 09/22/2024 CBC WITH DIFFE RENTI AL/PL ATELE T hemoglobin 12.3 g/dL 11.1-1 5.9 Not Available [facility] ([facility]) [address] [place], [address], 09/22/2024 08:24:26 09/21/19 25 09/22/2024 CBC WITH DIFFE RENTI AL/PL ATELE T hematocrit 38.0 % 34.0-4 6.6 Not Available [facility] ([facility]) [address] [place], [address], 09/22/2024 08:24:26 09/21/19 25 09/22/2024 CBC WITH DIFFE RENTI AL/PL ATELE T MCV 91 fL 79-97 Not Available [facility] ([facility]) [address] [place], [address], 09/22/2024 08:24:26 09/21/19 25 09/22/2024 CBC WITH DIFFE RENTI AL/PL ATELE T MCH 29.3 pg 26.6-3 3.0 Not Available [facility] ([facility]) [address] [place], [address], 09/22/2024 08:24:26 09/21/19 25 09/22/2024 CBC WITH DIFFE RENTI AL/PL ATELE T MCHC 32.4 g/dL 31.5-3 5.7 Not Available [facility] ([facility]) [address] [place], [address], 09/22/2024 08:24:26 09/21/19 25 09/22/2024 CBC WITH DIFFE RENTI AL/PL ATELE T RDW 13.7 % 11.7-1 5.4 Not Available [facility] ([facility]) [address] [facility], [place], [address], 09/22/2024 08:24:26 09/21/19 25 09/22/2024 CBC WITH DIFFE RENTI AL/PL ATELE T platelets 246 x10e3 /uL 150-45 0 Not Available [facility] ([facility]) [address] [facility], [place], [address], 09/22/2024 08:24:26 09/21/19 25 09/22/2024 CBC WITH DIFFE RENTI AL/PL ATELE T neutrophils 62 % notest ab. Not Available [facility] ([facility]) [address] [facility], [place], [address], 09/22/2024 08:24:26 09/21/19 25 09/22/2024 CBC WITH DIFFE RENTI AL/PL ATELE T lymphs 23 % notest ab. Not Available [facility] ([facility]) [address] [facility], [place], [address], 09/22/2024 08:24:26 09/21/19 25 09/22/2024 CBC WITH DIFFE RENTI AL/PL ATELE T monocytes 11 % notest ab. Not Available [facility] ([facility]) [address] [facility], [place], [address], 09/22/2024 08:24:26 09/21/19 25 09/22/2024 CBC WITH DIFFE RENTI AL/PL ATELE T eos 3 % notest ab. Not Available [facility] ([facility]) [address] [facility], [place], [address], 09/22/2024 08:24:26 09/21/19 25 09/22/2024 CBC WITH DIFFE RENTI AL/PL ATELE T basos 0 % notest ab. Not Available [facility] ([facility]) [address] [facility], [place], [address], 09/22/2024 08:24:26 09/21/19 25 09/22/2024 CBC WITH DIFFE RENTI AL/PL ATELE T neutrophils (absolute) 4.2 x10e3 /uL 1.4-7. 0 Not Available [facility] ([facility]) [address] [place], [address], 09/22/2024 08:24:26 09/21/19 25 09/22/2024 CBC WITH DIFFE RENTI AL/PL ATELE T lymphs (absolute) 1.6 x10e3 /uL 0.7-3. 1 Not Available [facility] ([facility]) [address] [place], [address], 09/22/2024 08:24:26 09/21/19 25 09/22/2024 CBC WITH DIFFE RENTI AL/PL ATELE T monocytes(ab solute) 0.7 x10e3 /uL 0.1-0. 9 Not Available [facility] ([facility]) [address] [place], [address], 09/22/2024 08:24:26 09/21/19 25 09/22/2024 CBC WITH DIFFE RENTI AL/PL ATELE T eos (absolute) 0.2 x10e3 /uL 0.0-0. 4 Not Available [facility] ([facility]) [address] [place], [address], 09/22/2024 08:24:26 09/21/19 25 09/22/2024 CBC WITH DIFFE RENTI AL/PL ATELE T baso (absolute) 0.0 x10e3 /uL 0.0-0. 2 Not Available [facility] ([facility]) [address] [place], [address], 09/22/2024 08:24:26 09/21/19 25 09/22/2024 CBC WITH DIFFE RENTI AL/PL ATELE T immature granulocytes 1 % notest ab. Not Available [facility] ([facility]) [address] [facility], [place], [address], 09/22/2024 08:24:26 09/21/19 25 09/22/2024 CBC WITH DIFFE RENTI AL/PL ATELE T immature grans (abs) 0.1 x10e3 /uL 0.0-0. 1 Not Available [facility] ([facility]) [address] [facility], [place], [address], 09/22/2024 08:24:26 10/08/19 25 10/09/2024 HEMOG LOBIN A1C hemoglobin A1C 7.4 % 4.8-5. 6 above high normal Predi abete s: 5.7 - 6.4 Diabe joana: >6.4 Glyce golden contr ol for adult s with diabe joana: <7.0 Not Available [facility] ([facility]) [address] [facility], [place], [address], 10/09/2024 06:25:05 03/21/20 24 03/21/2024 CT, chest , w/ contr ast No observ ation record ed. [address] [place], [address], 04/02/2024 09:59:21 09/22/19 25 03/25/2022 colon oscop [...] Address Organization Details Recorded Time Essential hypertension 60465156 Active 2023 MIRLANDE Marie, [place] - [facility] 4 17:05:35 Hyperlipidemia 11907858 Active 2023 Julieta Goel MD Attn: Bernice monsivais,[address], [place], [address], [facility] - [facility] 4 21:08:16 Gastroesophage al reflux disease without esophagitis 643930185 Active 2023 Julieta Goel MD Attn: Bernice g,[address], [place], [address], [facility] 4 21:08:17 Abdominal pain 83852039 Active 2023 MIRLANDE Marie, [place] - [facility] 4 10:55:59 Type 2 diabetes mellitus 83819045 Active 2024 MIRLANDE [place], [place] - [facility] 5 17:35:05 Problem Notes None recorded. Procedures Surgical History Date Name Laterality Status Provider Name and Address Organization Details Recorded Time 09/01/19 Total hysterectomy completed Olivia Persaud MA [facility] 09/21/2024 14:57:15 Appendectomy completed Roshni Azevedo MA [facility] 11/20/2023 16:17:51 Gastrointestinal Surgery completed MIRLANDE Negro [facility] 11/20/2023 16:18:06 Hernia Repair completed Roshni Azevedo MA [facility] 11/20/2023 16:18:15 Tubal Ligation completed Roshni Azevedo MA [facility] 11/20/2023 16:18:24 Neck spine disk surgery completed Roshni Azevedo MA [facility] 11/20/2023 16:21:10 Imaging Results None recorded. Procedure Notes None recorded. Medical Equipment None Reported. Allergies No known drug allergies Medications Name Sig Start Date Stop Date Status Note LastModified by Organization Details LastModified Time metformin 500 mg tablet Take 1 tablet every day by oral route. 2024 active Not Available Not Available Not Avai lable prednison e 10 mg tablet GIVE 4 TABLET BY MOUTH ONCE DAILY X 7 DAYS 3 TABLET X 7 DAYS 2 TABLET X 7 DAYS 1 TABLET X 7 DAYS 1/2 TABLET X 7 DAYS 11/19 completed Not Available Not Available Not Available doxycycli ne hyclate 100 mg capsule TAKE 1 CAPSULE BY MOUTH EVERY 12 HOURS 03/26 completed Not Available Not Available Not Available atorvasta tin 20 mg tablet Take 1 tablet every day by oral route. 2024 active Not Available Not Available Not Avai lable atorvasta tin 10 mg tablet TAKE 1 TABLET BY MOUTH EVERY DAY 03/23 completed Not Available Not Available Not Available ondansetr on HCl 4 mg tablet [...] Not Available amlodipin e 5 mg tablet Take 1 tablet every day by oral route. 2024 active Not Available Not Available Not Avai lable methotrex ate sodium 2.5 mg tablet 05/18 completed Not Available Not Available Not Available cephalexi n 500 mg capsule TAKE 1 CAPSULE BY MOUTH TWICE DAILY 03/23 completed Not Available Not Available Not Available folic acid 1 mg tablet 05/18 [...] in Arterial blood by Pulse oximetry Systolic And Diastolic Provider Name and Address Organization Details Last Updated DateTime 5 168.91 cm 25.9 kg/m2 24130.2 7 g 90 /min 98 % 98 % 160/86 mm[Hg] Olivia Persaud MA [facility] 5 14:57:32 Date Recorded Body height Body mass index (BMI) Body weight Heart rate Oxygen saturation Oxygen saturation in Arterial blood by Pulse oximetry Systolic And Diastolic Provider Name and Address Organization Details Last Updated DateTime 4 168.91 cm 26.8 kg/m2 24608.0 3 g 91 /min 96 % 96 % 142/88 mm[Hg] Roshni Azevedo MA [facility] 4 16:24:34 Date Recorded Body height Body mass index (BMI) Body weight Heart rate Oxygen saturation Oxygen saturation in Arterial blood by Pulse oximetry Systolic And Diastolic Provider Name and Address Organization Details Last Updated DateTime 4 168.91 cm 25.8 kg/m2 91021.9 6 g 93 /min 99 % 99 % 134/70 mm[Hg] Dona Wade MA [facility] 4 10:09:43 Date Recorded Body height Provider Name an d Address Organization Details Last Updated DateTime 05/18/2024 168.91 cm Dona Wade MA [facility] 4 14:57:51 Date Recorded Body mass index (BMI) Body weight Heart rate Oxygen saturation Oxygen saturation in Arterial blood by Pulse oximetry Systolic And Diastolic Provider Name and Address Organization Details Last Updated DateTime 4 26.2 kg/m2 90273.7 4 g 96 /min 96 % 96 % 132/78 mm[Hg] Olivia Persaud MA [facility] 4 15:08:41 Social History Question Answer Notes LastModified by Organizat ion Details LastModified Time Tobacco Smoking Status Former Smoker 10 years ago Roshni Azevedo MA [facility] 11/20/2023 16:17:40 Do You Have An Advance Directive? No Information not available 04/08/2024 Are You Blind Or Do You Have [...] Information not available 04/08/2024 Do You Use Sunscreen Routinely? Yes Information not available 04/08/2024 Has Tobacco Cessation Counseling Been Provided? Yes Information not available 09/21/2024 On What Date Was Tobacco Cessation Counseling Provided? 09/21/2024 Information not available 09/21/2024 Sex: Female Functional Status Question Answer Note LastModified by Organizat ion Details LastModified Time Do you use any illicit or recreational drugs? No Information not available 11/20/2023 Do you or have you ever used any other forms of tobacco or nicotine? No Information not available 11/20/2023 What is your level of alcohol consumption? None Information not available 11/20/2023 Are you currently employed? No Information not available 04/08/2024 Are you able to care for yourself independently? Yes Information not available 04/08/2024 What is your exercise level? None Information not available 04/08/2024 Mental Status None recorded. Family History Relationship Description Onset Age of this Age Resolved Age Notes LastModified by Organization Details LastModified Time Sister Harmful pattern of use of alcohol dmilesma Not available 2023 16:18:52 Sister Malignant [...] Skin Problems N Anemia N Heart Attack (OR) N Diabetes N Seizures/Epilepsy N Asthma N [...] 13:11:49 Influenza, high-dose, quadrivalent, PF 0 completed MIRLANDE Garcias, [place] - [facility] 11/12/2024 13:11:49 Influenza, high-dose, [...] PF, 30 mcg/0.3 mL dose 1 completed Jennifre Linton MA null, [place] - [facility] 11/12/2024 [...] completed Julieta Goel MD Attn: Accounting,[address] [place], [address], [place] - [facility] 09/26/2024 19:49:45 Past Encounters Encounter ID Performer Location Encounter Start Date Encounter Closed Date Diagnosis/Indication Diagnosis SNOMED-CT Code Diagnosis ICD10 Code Diagnosis Note [id number] Julieta Goel MD [facility] (Adult Med) [address] [place] [address] 11/20/2023 15:18:05 11/20/2023 17:06:20 Essential hypertension 88090911 I10 Hyperlipidemia 21437845 E78.5 Gastroesop hageal reflux disease without esophagitis 962435953 K21.9 [id number] Julieta Goel MD [facility] [address] [place] [address] 04/08/2024 09:47:31 04/08/2024 10:54:28 Abdominal pain 17862009 R10.9 [id number] Julieta Goel MD [facility] (Adult Med) [address] [place] [address] 05/18/2024 14:53:17 05/18/2024 16:08:17 Overweight 534898034 E66.3 Essential hypertension 60208966 I10 Hyperlipidemia 38739322 E78.5 Gastroesop hageal reflux disease without esophagitis 437930940 K21.9 [id number] Julieta Goel MD [facility] (Adult Med) [address] [place] [id number] 09/21/2024 14:47:08 09/21/2024 15:27:40 Body mass index 25-29 - overweight 846088098 Z68.25 Overweight 725190794 E66 .3 Essential hypertension 22249803 I10 Pain in right foot 25566 [address]014 M79.671 Administra tion of influenza vaccine 99800945 Z23 Hyperlipidemia 65929601 E78.5 Colonoscopy declined 160 9581672 84755 Z53.20 Gastroesop hageal reflux disease without esophagitis 432009561 K21.9 Health Concerns Section Related Observation LastModified by Organization Detai ls LastModified Time None Recorded Concern Status LastModified by Organization Details LastModified Time None Recorded Advance Directives Directive N: Payers Insurance Date Sequence Insurance Name Policy Number Policy Huitron Covered Member ID Huitron Member ID Guarantor Name 03/26/2025 [place] Renetta L Celia [id number] Renetta L Celia 03/26/2025 1 [facility] [id number] Briancathi Yang [id number] Renetta L Celia 03/26/2025 2 [place] Renetta L Celia [id number] Renetta L Celia OBGyn Episode No OBEpisode recorded.
--- OUTSIDE RECORDS SUMMARY | 2025-03-29 09:54 | XMS_ITS | Referral Summary ---
Author Organization [facility] Address [address] [place] [address] Care Team Providers Care Certified Driver Examiner Name Role Phone Mark Goel MD Primary Care Provider [phone] Chaparro Reed MD Unavailable [phone] Allergies Active Allergy Reactions Criticality Noted Date [...] 08/05/2021 Assessment & Plan (08/05/2021 4:24 PM MANAGER STATISTICAL): - will discuss at next visit Gastroesophageal reflux disease 08/03/2021 Overview (08/03/2021): Added automatically from request for surgery [id number] Assessment & Plan (08/05/2021 4:23 PM MANAGER STATISTICAL): - discussed with Ms. 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 Not on file [...] on file Medical Devices Implanted Type Area Wellness Guide Device Identifier Shelf Expiration Date Model / Serial / Lot [employer]/C R Bard [id number] Monofilament Soft Lightweight Low Profile Square - [id number] Implanted:Qty: 1 on 02/17/2019 by Charity Henry MD at [facility] Mesh Abdomen [employer] [id number] 09/28/2023 [id number] / / [id number] Procedures Procedure Name Priority Date/Time Associated Diagnosis Comments COLONOSCOPY 03/25/2022 8:25 AM CDT DEXA AXIAL SKELETON BONE DENSITY 1 OR MORE SITES Schedule Routine, Read Routine (OP Routine) 07/11/2021 1:23 PM MANAGER STATISTICAL Age-related osteoporosis without current pathological fracture Difficulty [...] Attending MD: Fiona Sharpe M.D. Room: [facility] ENDOSCOPY ROOM 3 Note Status: Finalized [...] The scope was passed under direct vision.The [id number] endoscope was introduced through the anus and advanced to the terminal ileum. The colonoscopy was performed without difficulty. The patient tolerated the procedure well. The qualityof the bowel preparation was evaluated using the BBPS ([place] Bowel Preparation Scale) with scores of:Right Colon [...] On: 03/25/2022 8:25 AM Recognized by the [place] [employer] for promoting quality in endoscopy us Fiona Sharpe MD ENDOSCOPY PROCEDURES Final Res ult * Dexa Axial Skeleton Bone Density 1 or 2 Site (07/11/2021 1:23 PM MANAGER STATISTICAL) Anatomical Region Laterality Modality Body N/A Radiographic Brittney ging Narrative 07/11/2021 2:32 PM MANAGER STATISTICAL Patient Name: Renetta Yang Date of : 1955 Date of scan: 07/11/2021 Bone mineral density was performed on a HoloLontra Discovery Densitometer. Based on machine cross-calibration and [...] by the International Society of Clinical Densitometry. [id number] Michelle Cummings MD IMG DXA PROCEDURES Final Re sult from Last 3 Months or Most Recently Relevant to Health Maintenance Insurance [place]IC[place] [employer] [place] ANTH ACCESS MEDICARE BLUE ACCESS [facility] Advance Directives For more information, please contact: [phone] * Full Code (Latest Code Status on File) Date Activated Date Inactivated Comments 08/13/2021 12:34 PM 08/13/2021 5:48 PM * Full Code Date Activated Date Inactivated Comments 02/17/2019 5:30 PM 02/21/2019 5:22 PM Care Teams Certified Driver Examiner Relationship Specialty Start Date End Date Mark Goel MD PCP - General Internal Medicine 12/07/18 Chaparro Reed MD Referring Physician Gastroenterology 12/31/18
--- OUTSIDE RECORDS SUMMARY | 2025-03-29 09:54 | XMS_ITS | Clinical Summary ---
Author Organization [facility] Address [facility] [place] [address] Care Team Providers Care Bilingual Customer Service Specialist Name Role Phone Mark Goel MD Primary Care Provider [phone] Chaparro Reed MD Unavailable [phone] Allergies Active Allergy Reactions Criticality Noted Date [...] 08/05/2021 Assessment & Plan (08/05/2021 4:24 PM PNEUMATIC DEICER INSPECTOR): - will discuss at next visit Gastroesophageal reflux disease 08/03/2021 Overview (08/03/2021): Added automatically from request for surgery [id number] Assessment & Plan (08/05/2021 4:23 PM PNEUMATIC DEICER INSPECTOR): - discussed with Ms. Yang, as her [...] (01/21/2019): Added automatically from request for surgery [id number] Incisional hernia 01/20/2019 03/08/2019 Gastrointestinal anastomotic stricture 12/31/2018 08/05/2021 Diverticulitis 06/01/2015 08/05/2021 Surgical History Surgery Date Site/Laterality Comments DC LIG/TRNSXJ FLP TUBE ABDL/VAG APPR UNI/BI Tubal Ligation - (Added by TW Conv) DC TOTAL ABDOMINAL HYSTERECT W/WO RMVL TUBE OVARY Hysterectomy - (Added by TW Conv) TOTAL ABDOMINAL HYSTERECTOMY Total Abdominal Hysterectomy With Removal Of Both Ovaries - (Added by TW Conv) DC LAMNOTMY INCL W/DCMPRSN NRV ROOT 1 INTRSPC CERVC Hemilaminectomy With Disc Removal One Cervical Interspace - 2 disks removed (Added by TW Conv) DC THORACOPLASTY SCHEDE TYPE/EXTRAPLEURAL Thoracoplasty - left (Added by TW Conv) DC APPENDECTOMY Appendectomy - (Added by TW Conv) [...] on file Legal Sex Female 3:17 AM PNEUMATIC DEICER INSPECTOR Gender Identity Female 04/16/2021 9:34 PM CDT Sexual Orientation Straight 04/16/2021 9: 34 PM CDT 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 Not on file [...] 2024 06/20/2021, 11/19/2020, 10/29/2020 Influenza Vaccine (#1) 2025 , 06/30/2020, 07/28/2019, Additional history exists Colon Cancer Screening-Colonoscopy 03/25/2032 03/25/2022, 05/12/2015 Colon Cancer Screening-CT Colonography Discontinued 03/25/2022, 05/12/2015 Colon Cancer Screening-DNA Stool Discontinued 03/25/20, 05/12/2015 Colon Cancer Screening-FIT Discontinued 03/25/2022, Colon Cancer Screening-Sigmoidoscopy Discontinued 03/25/2022, 05/12/2015 Medical Devices Implanted Type Area Ship Worker Device Identifier Shelf Expiration Date Model / Serial / Lot [employer]/C R Bard [id number] Monofilament Soft Lightweight Low Profile Square - [id number] Implanted:Qty: 1 on 02/17/2019 by Charity Henry MD at [facility] Mesh Abdomen [employer]/C R [place] [id number] 09/28/2023 [id number] / / [id number] Procedures Procedure Name Priority Date/Time Associated Diagnosis Comments COLONOSCOPY 03/25/2022 8:25 AM CDT DEXA AXIAL SKELETON BONE DENSITY 1 OR MORE SITES Schedule Routine, Read Routine (OP Routine) 07/11/2021 1:23 PM PNEUMATIC DEICER INSPECTOR Age-related osteoporosis without current pathological fracture Difficulty [...] Female Attending MD: Fiona Sharpe M.D. Room: [facility] ENDOSCOPY ROOM 3 Note Status: Finalized Procedure: Colonoscopy Indications: Screening for colorectal malignant neoplasm Referring MD: Fiona Sharpe M.D. Providers: Fiona Sharpe M.D., Holil Marshall M.D. Medicines: Monitored Anesthesia Care Complications: [...] The scope was passed under direct vision.The [id number] endoscope was introduced through the anus and advanced to the terminal ileum. The colonoscopy was performed without difficulty. The patient tolerated the procedure well. The qualityof the bowel preparation was evaluated using the BBPS ([place] Bowel Preparation Scale) with scores of:Right Colon [...] On: 03/25/2022 8:25 AM Recognized by the [place] [employer] for promoting quality in endoscopy us Fiona Sharpe MD ENDOSCOPY PROCEDURES Final Res ult * Dexa Axial Skeleton Bone Density 1 or 2 Site (07/11/2021 1:23 PM PNEUMATIC DEICER INSPECTOR) Anatomical Region Laterality Modality Body N/A Radiographic Brittney ging Narrative 07/11/2021 2:32 PM PNEUMATIC DEICER INSPECTOR Patient Name: Renetta Yang Date of : 1955 Date of scan: 07/11/2021 Bone mineral density was performed on a [employer] Discovery Densitometer. Based on machine cross-calibration and [...] by the International Society of Clinical Densitometry. [id number] us Michelle Cummings MD IMG DXA PROCEDURES Final Re sult from Last 3 Months or Most Recently Relevant to Health Maintenance Insurance MEDICARE [employer] [facility] UHC MEDICARE ADVANTAGE BLUE ACCESS [facility] MEDICARE MEDICARE [facility] MEDICARE BLUE ACCESS CHOICE [place] Advance Directives For more information, please contact: [phone] * Full Code (Latest Code Status on File) Date Activated Date Inactivated Comments 08/13/2021 12:34 PM 08/13/2021 5:48 PM * Full Code Date Activated Date Inactivated Comments 02/17/2019 5:30 PM 02/21/2019 5:22 PM Care Teams Bilingual Customer Service Specialist Relationship Specialty Start Date End Date Mark Goel MD PCP - General Internal Medicine 12/07/18 Chaparro Reed MD Referring Physician Gastroenterology 12/31/18
== END 2024-12-21 09:45 | disposition home or self-care (01) ==
PROVIDERS: PCP Internal Medicine; Visit Provider Podiatrist Foot & Ankle Surgery
DX: M06.9 Rheumatoid arthritis, unspecified (principal); M19.079 Primary osteoarthritis, unspecified ankle and foot; M45.9 Ankylosing spondylitis of unspecified sites in spine; M10.079 Idiopathic gout, unspecified ankle and foot
CPT/HCPCS: 36415; 86812